=== PATIENT | male | born 1955 | race Caucasian/White ===

== ENCOUNTER 2023-12-10 10:54 | Inpatient (IN) | payer MEDICARE, SELFPAY ==
[2023-12-10] VITALS (14 sets, daily range): BP systolic 122–165; BP diastolic 69–83; PULSE 48–74; RESP 18–20; TEMP 36.3–36.9; O2SAT 93–99; BMI 28.6; BMI 29.8
--- NOTE | 2023-12-10 12:48 | ED_ITS ---
HPI - General Adult General Date Seen: 12/10/23 Chief complaint: Hypertension Stated complaint: Intermittent high BP Time Seen by Provider: 12/10/23 12:41 History of Present Illness HPI narrative: 68-year-old gentleman with a past medical history of hypertension, dyslipidemia, and dementia. He normally follows with Gio Ramirez at the [place] office for Bina Gallegos. He is normally on metoprolol and another medications for his blood pressure. He takes atorvastatin for cholesterol. He is on Aricept for dementia. He had an episode where he had a syncopal event at [facility] in mid September (October 11). Normal sinus rhythm [] EKG Obtained by EMS at at the time of the incident showed sinus bradycardia with a rate of 51. KS interval was prolonged at 2:12 a.m.. He had a first- degree AV block. He had nonspecific T-wave flattening in leads 2, AVF, and less so in the lateral leads. He had follow-up with his doctor. They decreased his metoprolol dose from 25 mg daily down to 12.5 mg daily. He had a 2 week outpatient heart monitor that she had no other arrhythmias or episodes of bradycardia. He in late October he had an extensive workup done at [facility] to evaluate his dementia. He is a candidate for a new treatment for dementia and will receiving that starting soon. He had low labs, PET-CT scan of his brain, lumbar puncture done on November 26 at [place]. His is able to show me some of those test results through his online ?my chart. Labs from 11/26: WBC 6.7, hemoglobin 14.7, platelet counts 209 PT 11.2, INR 1.0 Sodium 140, potassium 4.3, chloride 105, bicarb 20, BUN 13, creatinine 0.99, glucose 98, calcium 9.3, liver function tests were normal TSH normal at 2.2 EKG showed a sinus rhythm with a rate in the 50s. He has been taking all of his prescription medications. He has been eating and drinking normally. No other change in his appetite, food intake, or behavior. No recent illness. No recent cough or fever. No vomiting or diarrhea. He is not having any chest pain or trouble breathing. For the past couple of days he has been having ?spells? where he feels a very warm feeling through his torso and body, followed by feeling lightheaded and dizzy. His has noted that he has skin turns haney ashen pale during the spells. During a few the spells he felt like if he did not sit down he would pass out. He has not actually passed out or lost consciousness. He had at least 5 spells yesterday. Because of the frequency of these new spells, they came to the ER today. Related Data Home Medications Medication Instructions Recorded Confirmed atorvastatin 40 mg tablet 40 mg PO HS 12/10/23 12/10/23 donepezil 10 mg tablet (Aricept) 10 mg PO HS 12/10/23 12/10/23 escitalopram oxalate 20 mg tablet 20 mg PO DAILY 12/10/23 12/10/23 losartan 100 mg tablet (Cozaar) 100 mg PO DAILY 12/10/23 12/10/23 metoprolol succinate 25 mg 12.5 mg PO HS 12/10/23 12/10/23 tablet,extended release 24 hr Allergies Allergy/AdvReac Type Severity Reaction Status Date / Time No Known Drug Allergies Allergy Verified 12/10/23 11:03 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 Lives with Mechelle (would be medical decision maker if needed). Adult children and grandchildren locally. Requests full code status, would not want to be kept alive artificially for any length of time. Quit smoking approximately 20 years ago, 1-2 beers 5 nights per week. What is your current living situation?: I presently have a place to live Problems where you live: no known problems Problems where you live details: None In the past 12 months, utilities in danger of being shut off: no In past 12 months, lack of transportation kept you from medical appts, meetings, work, or getting things needed for daily living: no In the past 12 mos, have been you worried that your food would run out before you had money to buy more?: never true In the past 12 mos, the food you bought just didn't last and you didn't have money to buy more?: never true Highest level of school completed/degree received: Associate degree: occupational, technical, vocational program Smoking Status: Former smoker Do you use any of these nicotine containing products: None How often do you have a drink containing alcohol: 4 or more times a week Alcohol type: beer Alcohol type details: 1 beer 5 nights a week How many standard drinks containing alcohol do you have on a typical day: 1 or 2 How often do you have six or more drinks on one occasion: Less than monthly AUDIT-C Alcohol total score: 5 Non-prescribed substance use: denies use Caffeine: Yes How often does anyone, including family, friends and others, physically hurt you : never How often does anyone, including family, friends and others, insult or talk down to you: never How often does anyone, including family, friends and others, threaten you with harm: never How often does anyone, including family, friends and others, scream or curse at you: never service: No Exam Narrative: Exam Narrative: Constitutional: Appears well-developed and well-nourished. Alert. Conversant but relies on his for a lot of the history. Non toxic. HENT: Head: Atraumatic. Nose: Nose normal. Mouth/Throat: Oral mucosa is clear and moist. no trismus. Pharynx normal. Tonsils symmetric. No tonsillar enlargement, erythema, or exudate. Eyes: Conjunctivae normal. EOM normal. Pupils equal, round, and reactive to light. No scleral icterus. Neck: Normal range of motion. Neck supple. No tracheal deviation present. Cardiovascular: Normal rate, regular rhythm. No gallop. No friction rub. No murmur heard. Symmetric radial artery pulses During my evaluation he has 1 of the spells. He says he can feel it coming and started to feel warm. I scrambled to get him on the heart monitor. We did and he had a heart rate that appeared to be sinus bradycardia with a rate of about 42. He was symptomatic, feeling warm while lying in bed. The skin of his face did turn a bit ashen and haney. He did not lose consciousness. No chest pain. No trouble breathing. Within about 2 minutes the spell resolved and heart rate came up to the mid 50s, sinus bradycardia. Pulmonary/Chest: Effort normal. No stridor. No respiratory distress. No wheezes. No rales. No rhonchi . No tenderness. Abdominal: Soft. Bowel sounds normal. No distension. No mass. No tenderness. No rebound. No guarding. Musculoskeletal: RUE: Normal range of motion. No tenderness. No deformity LUE: Normal range of motion. No tenderness. No deformity RLE: Normal range of motion. No edema. No tenderness. No deformity LLE: Normal range of motion. No edema. No tenderness. No deformity Lymph: No cervical adenopathy. Neurological: Alert and oriented to person, place, and time. Normal strength. CN II-VII intact. No sensory deficit. GCS eye subscore is 4. GCS verbal subscore is 5. GCS motor subscore is 6. Normal coordination Skin: Skin is warm and dry. No rash noted. No pallor. Normal capillary refill. Psychiatric: Normal mood. Normal affect. As a wry sense of humor. Const: Vital Signs, click to edit/add: Vital Signs - 24 hr 12/10/23 10:57 12/10/23 13:52 12/10/23 14:00 Temperature 97.3 F L Pulse Rate 52 L 53 L Pulse Rate [Pulse Oximeter] 57 L Respiratory Rate 18 Blood Pressure Blood Pressure [Ri [facility] Upper [place]] 155/78 H Pulse Oximetry 99 96 [facility] 12/10/23 14:01 12/10/23 14:02 12/10/23 14:31 Temperature Pulse Rate 48 L 49 L 51 L Pulse Rate [Pulse Oximeter] Respiratory Rate Blood Pressure 152/80 H 147/80 H Blood Pressure [Ri t Upper Arm] Pulse Oximetry 96 96 95 Oxygen Delivery [facility] 12/10/23 14:32 12/10/23 15:00 12/10/23 15:00 Temperature Pulse Rate 51 L 55 L 55 L Pulse Rate [Pulse Oximeter] Respiratory Rate Blood Pressure Blood Pressure [Ri [facility] Upper [place]] Pulse Oximetry 95 95 Oxygen Delivery [facility] 12/10/23 15:02 Temperature Pulse Rate 54 L Pulse Rate [Pulse Oximeter] Respiratory Rate Blood Pressure 155/78 H Blood Pressure [Ri ght Upper Arm] Pulse Oximetry 93 Oxygen Delivery Me thod Course Vital Signs Vital signs: Initial Vital Signs Temperature 97.3 F L 12/10/23 10:57 Temperature Source Temporal Artery Scan 12/10/23 10:57 Pulse Rate 57 L 12/10/23 10:57 Respiratory Rate 18 12/10/23 10:57 Blood Pressure 155/78 H 12/10/23 10:57 Blood Pressure Mean 103 12/10/23 10:57 Blood Pressure Position Sitting 12/10/23 10:57 Pulse Oximetry 99 12/10/23 10:57 Oxygen Delivery Method Room Air 12/10/23 10:57 Vital Signs Temperature 97.3 F L 12/10/23 10:57 Pulse Rate 57 L 12/10/23 10:57 Respiratory Rate 18 12/10/23 10:57 Blood Pressure 155/78 H 12/10/23 10:57 Pulse Oximetry 99 12/10/23 10:57 Oxygen Delivery Method Room Air 12/10/23 10:57 Temperature 97.6 F 12/10/23 15:23 Pulse Rate 73 12/10/23 18:30 Respiratory Rate 20 12/10/23 15:23 Blood Pressure 149/77 H 12/10/23 18:30 Pulse Oximetry 98 12/10/23 15:23 Oxygen Delivery Method Room Air 12/10/23 15:23 Medical Decision Making MDM Narrative Medical decision making narrative: This patient presents for evaluation of a multiple near syncopal events over the past couple of days. A broad differential was considered. No murmurs . Initial ECG shows marked sinus bradycardia with a rate down in the 40s when he is actively having an event and subsequently sinus bradycardia with a rate in the 50s when he is asymptomatic. No other abnormality such as high- degree AV block, WPW, prolonged QT, Brugada syndrome, and no ischemia. Troponin negative. No symptoms/findings concerning for cardiac ischemia or ACS . He has already had outpatient workup through [facility] that included normal thyroid function about 2 weeks ago.. No headache or other neurologic symptoms to suggest subarachnoid , stroke . No seizure-like activity or postictal phase. He is on a beta-fiona for blood pressure control. It is possible that he is overly beta blocked and this is causing his episodes of bradycardia. His primary care did decrease his dose by half about a month ago. My recommendation would be to stop the beta-fiona altogether and monitor in the hospital to see if these events recur or stop. If they are ongoing may require transfer to a Cardiology capable hospital to consider pacemaker for his symptomatic bradycardic events and possible sick sinus syndrome. At this point it seems reasonable to admit him here at [facility] pending discontinuation of his beta fiona. Lab Data Labs: Lab Results 12/10/23 Range/Units 13:40 WBC 9.28 (4.50-11.00) K/uL RBC 4.45 (4.30-5.90) m/uL Hgb 13.8 (13.5-17.5) gm/dL Hct 41.5 (37.0-53.0) % MCV 93 (80-100) fL MCH 31 (26-34) pg MCHC 33 (32-36) gm/dL RDW Coeff of Mikayla 12.3 (11.5-15.5) % Plt Count 199 (140-440) K/uL Neut % (Auto) 76.8 H (42.0-72.0) % Lymph % (Auto) 14.8 L (20-44) % Yancey % (Auto) 7.7 (0.0-11.0) % Eos % (Auto) 0.3 (0.0-7.0) % Baso % (Auto) 0.3 (0.0-3.0) % Neut # (Auto) 7.10 H (1.7-7.0) K/uL Lymph # (Auto) 1.40 (0.90-2.90) K/uL Yancey # (Auto) 0.70 (0.00-0.90) K/UL Eos # (Auto) 0.03 (0.00-0.50) K/uL Baso # (Auto) 0.03 (0.00-0.30) K/uL Abs Immat Gran (auto) 0.01 (0.00-0.30) K/uL Imm/Tot Granulo (auto) 0.1 % Sodium 139 (135-149) mmol/L Potassium 3.9 (3.6-5.1) mmol/L Chloride 107 (96-114) mmol/L Carbon Dioxide 26 (20-32) mmol/L Anion Gap 6 L (7-15) mEq/L BUN 14 (7-30) mg/dL Creatinine 0.7 (0.5-1.5) mg/dL Estimated Creat Clear 75.30 Estimated GFR 100 ml/min Glucose 104 (60-115) mg/dL Calcium 9.1 (8.4-10.6) mg/dL Troponin I 0.01 (0.01-0.04) ng/mL ECG Data Attestation: I personally reviewed and interpreted this ECG as follows: Interpretation: Sinus bradycardia. Rate 50 KS [id number] AV block QRS axis normal axis. No pathologic Q-waves. ST segment/T wave: No ST segment elevation or depression. Previous T-wave f lattening that was noted in lead 3 on his EKG from September is now resolved. QTc: 428 Discharge Plan Discharge Clinical Impression: Bradycardia, sinus, AV bloc first degree, Near syncope Patient Disposition: Admitted As Observation
[2023-12-10 13:51] LABS: Basophils Absolute Auto 0.03 K/uL (0.00-0.30); Basophils Percent Auto 0.3 % (0.0-3.0); Eosinophils Absolute Auto 0.03 K/uL (0.00-0.50); Eosinophils Percent Auto 0.3 % (0.0-7.0); Hematocrit 41.5 % (37.0-53.0); Hemoglobin* 13.8 gm/dL (13.5-17.5); Immature Granulocytes Abs Auto 0.01 K/uL (0.00-0.30); Immature Granulocytes Pct Auto 0.1 %; Lymphocytes Percent Auto 14.8 % (20-44); Mean Corpuscular HGB Conc 33 gm/dL (32-36); Mean Corpuscular Hemoglobin 31 pg (26-34); Mean Corpuscular Volume 93 fL (80-100); Monocytes Percent Auto 7.7 % (0.0-11.0); Neutrophils Percent Auto 76.8 % (42.0-72.0); Platelet Count* 199 K/uL (140-440); RDW Coefficient of Variation % 12.3 % (11.5-15.5); Red Blood Count 4.45 m/uL (4.30-5.90); White Blood Count* 9.28 K/uL (4.50-11.00)
[2023-12-10 14:03] LABS: Slide Review Reflex No
--- OUTSIDE RECORDS SUMMARY | 2023-12-10 14:05 | XMS_ITS | Encounter Summary ---
Author Name Unknown Organization [facility] Address [address] [place] [id number] Care Team Providers Care General Internal Medicine Doctor Name Role Phone Jamarcus Cordero INDUSTRIAL HYGIENIST Primary Care Provider Encounter Details Date Type Department Care Team (Latest Contact Info) Description 05/15/2023 Travel Social History Tobacco Use Types Packs/Day Years Used Date Smoking Tobacco: Former Alcohol Use Standard Drinks/Week Comments Yes 0 (1 standard drink = 0.6 oz pur e alcohol) rare Sex and Gender Information Value Date Recorded Sex Assigned at Not on file Gender Identity Not on file Sexual Orientation Not on file COVID-19 Exposure Response Date Recorded In the last 10 days, have yo u been in contact with someone who was confirmed or suspected to have Coronavirus/COVID-19? No / Unsure 05/15/2023 3:14 PM CDT documented as of this encounter Plan of Treatment Not on file documented as of this encounter Visit Diagnoses Not on filedocumented in this encounter Care Teams General Internal Medicine Doctor Relationship Specialty [place] [id number] [address] [place] [id number] PCP - General Nurse Practitioner 03/31/22 documented as of this encounter
--- OUTSIDE RECORDS SUMMARY | 2023-12-10 14:05 | XMS_ITS | Encounter Summary ---
Author Name Unknown Organization [facility] Address [address] [place] [id number] Care Team Providers Care Auto Striper Name Role Phone Jamarcus Cordero NP Primary Care Provider [phone] Reason for Visit * Reason Comments Dizziness Encounter Details Date Type Department Care Team (Late st Contact Info) Description 05/15/2023 4:14 PM CDT - 05/15/2023 7:41 PM CDT Emergency [facility] Emergency Dept [address] [place] [address] Venu Mitchell MD [facility] [address] [place] [address] Transient hypotension Discharge Disposition: Home or Self Care Social History Tobacco Use Types Packs/Day Years [...] PM CDT documented as of this encounter Last Filed Vital Signs Vital Sign Reading Time Taken Comments Blood Pressure 121/84 05/15/2023 6:55 PM CDT Pulse 65 05/15/2023 6:55 PM CDT Temperature 37.1 ??C (98.8 ??F) 05/15/2023 3:19 PM CD T Respiratory Rate 16 05/15/2023 3:19 PM CDT Oxygen Saturation 97% 05/15/2023 6:56 PM CDT Inhaled Oxygen Concentration - - Weight 99.8 kg (220 lb) 05/15/2023 3:19 PM CDT Height 180.3 cm (5' 11) 05/15/2023 3:19 PM CDT Body Mass Index 30.68 05/15/2023 3:19 PM CDT documented in this encounter Discharge Instructions * Discharge Instructions* Venu Mitchell MD - 05/15/2023 7:33 PM CDT We noted a transient drop in your blood pressure. We are not sure if this is related to your new medication Aricept or your lack of ability to compensate for drops of blood pressure because of metoprolol. Please decrease metoprolol to 12.5. If you are dizzy or lightheaded please sit down or lie down. Please follow-up with your regular doctor to reassess blood pressure and her medications. Thanks your patience today. * Attachments The following attachments cannot be sent through Care Everywhere. * Low Blood Pressure (Hypotension), Discharge Instructions for ([place]ots[place]an) documented in this encounter Medications at Time of Discharge Medication Sig Dispensed Refills Start Date End Date Atorvastatin Calcium (LIPITOR PO) 0 Citalopram Hydrobromide (CELEXA PO) 0 metoprolol succinate ER (TOPROL XL) 25 MG 24 hr tablet Take 0.5 tablets (12.5 mg) by mouth daily 30 tablet 0 05/15/2023 Omeprazole (PRILOSEC PO) 0 documented as of this encounter ED Notes * Anshul Moe MD - 05/15/2023 4:16 PM CDT Tele-PIT/Intake Evaluation Video-Visit Details Type of service: Video Visit Video Start Time (time video started): 4:16 PM Video End Time (time video stopped): 4:22 PM Originating Location (pt. Location): [facility] Distant Location (provider location): [facility] Mode of Communication: Video Conference via [employer] Patient verbally consented to [employer] televisit. History: Patient presents with lightheadedness and near syncope while working out in the yard. Denies chest pain or shortness of breath. States he checked his blood pressure at home and it was in the 80s. No recent changes to his blood pressure medications. Exam: General: Alert, interactive Cardiovascular: Well perfused Lungs: No respiratory distress, no accessory muscle use Neuro: Moving all 4 extremities Skin: Warm, dry Psych: Normal affect Patient Vitals for the past 24 hrs: BP Temp Temp src Pulse Resp SpO2 Height Weight 05/15/23 1519 126/70 98.8 ??F (37.1 ??C) Temporal 78 16 97 % 1.803 m (5' 11) 99.8 kg (220 lb) Appropriate interventions for symptom management were initiated if applicable. Appropriate diagnostic tests were initiated if indicated. Important information for subsequent clinician: Orthostatic vital signs, IV, labs, EKG all ordered. I briefly evaluated the patient and developed an initial plan of care. I discussed this plan and explained that this brief interaction does not constitute a full evaluation. Patient/family understands that they should wait to be fully evaluated and discuss any test results with another clinician prior to leaving the hospital. Anshul Moe MD 05/15/23 1622 * Mindy Sher RN - 05/15/2023 3:17 PM CDT Pt was doing landscaping outside and whenever he stood up he became lightheaded/dizzy. Pt went inside and took BP, which was 80/50. Pt reports he drank some water but BP wouldn't go up. Here, pt denies feeling lightheaded/dizzy but does note some mild SOB. Denies CP. ABCs intact. * Venu Mitchell MD - 05/15/2023 3:14 PM CDT History Chief Complaint: Dizziness HPI Zackary Mcgowan is a 67 year old male with history of hypertension who presents to the ED for an episode of near syncope. The patient reports he became lightheaded and near syncope while working out in the yard this afternoon. He states he checked his blood pressure at home and it was 88/50. He went inside, sat down, and drank a few glasses of water with improvement. The patient denies loss of consciousness, falls, chest pain, headache, abdominal pain, diaphoresis. He states he was recently started on Aricept and has not changes to his Metoprolol. Independent Historian: None - Patient Only Review of External Notes: Medications: Aspirin 81 mg Toprol Cozaar Lipitor Celexa Aricept Metoprolol Lexapro Past Medical History: Depressive disorder GERD Hypertension ALVINA Tobacco Use Obesity Severe EMIL Hyperlipidemia Past Surgical History: Tonsillectomy Sinus Surgery Physical Exam Patient Vitals for the past 24 hrs: BP Temp Temp src Pulse Resp SpO2 Height Weight 05/15/23 1856 -- -- -- -- -- 97 % -- -- 05/15/23 1855 121/84 -- -- 65 -- 98 % -- -- 05/15/23 1854 -- -- -- -- -- 97 % -- -- 05/15/23 1853 135/83 -- -- 62 -- 97 % -- -- 05/15/23 1852 -- -- -- -- -- 99 % -- -- 05/15/23 1851 137/80 -- -- 57 -- 95 % -- -- 05/15/23 1756 (!) 142/84 -- -- 57 -- -- -- -- 05/15/23 1519 126/70 98.8 ??F (37.1 ??C) Temporal 78 16 97 % 1.803 m (5' 11) 99.8 kg (220 lb) Physical Exam Vitals reviewed. HENT: Head: Normocephalic. Cardiovascular: Rate and Rhythm: Normal rate and regular rhythm. Pulmonary: Effort: Pulmonary effort is normal. Breath sounds: Normal breath sounds. Abdominal: General: Abdomen is flat. Bowel sounds are normal. Skin: General: Skin is warm. Capillary Refill: Capillary refill takes less than 2 seconds. Neurological: General: No focal deficit present. Mental Status: He is alert and oriented to person, place, and time. Emergency Department Course ECG ECG taken at 1618, ECG read at 1828 Sinus rhythm with premature atrial complexes Normal ECG Rate 69 bpm. MS interval 200 ms. QRS duration 106 ms. QT/QTc 436/467 ms. P-R-T axes 69/13/53. Laboratory: Labs Ordered and Resulted from Time of ED Arrival to Time of ED Departure D DIMER QUANTITATIVE - Normal Result Value D-Dimer Quantitative 0.31 BASIC METABOLIC PANEL - Normal Sodium 139 Potassium 4.1 Chloride 105 Carbon Dioxide (CO2) 24 Anion Gap 10 Urea Nitrogen 17.1 Creatinine 1.00 Calcium 9.2 Glucose 75 GFR Estimate 82 TROPONIN T, HIGH SENSITIVITY - Normal Troponin T, High Sensitivity 17 CBC WITH PLATELETS AND DIFFERENTIAL WBC Count 8.6 RBC Count 4.44 Hemoglobin 14.2 Hematocrit 42.1 MCV 95 MCH 32.0 MCHC 33.7 RDW 12.8 Platelet Count 218 % Neutrophils 62 % Lymphocytes 24 % Monocytes 10 % Eosinophils 2 % Basophils 1 % Immature Granulocytes 1 NRBCs per 100 WBC 0 Absolute Neutrophils 5.4 Absolute Lymphocytes 2.1 Absolute Monocytes 0.9 Absolute Eosinophils 0.1 Absolute Basophils 0.1 Absolute Immature Granulocytes 0.0 Absolute NRBCs 0.0 Emergency Department Course & Assessments: Assessments: 1901 Initial Examination Independent Interpretation (X-rays, CTs, rhythm strip): None Consultations/Discussion of Management or Tests: None Social Determinants of Health affecting care: None Disposition: The patient was discharged to home. Impression & Plan [facility] Diagnoses: None Medical Decision Making: Zackary Mcgowan is a 67 year old male patient presents with a near syncopal episode after a transient drop in blood pressure. Recently prescribed Aricept. Also on metoprolol. Patient is well-appearing lab work is unremarkable EKG unremarkable without concerns for QT or QRS prolongation anemia or dehydration orthostatics are normal after IV fluids. Patient was encouraged to titrate down his antihypertensives. Could be a side effect of the newly started Aricept recommend follow-up with primary care for reassessment. Discharged home in stable condition. Diagnosis: ICD-10-CM 1. Transient hypotension I95.9 Discharge Medications: New Prescriptions METOPROLOL SUCCINATE ER (TOPROL XL) 25 MG 24 HR TABLET Take 0.5 tablets (12.5 mg) by mouth daily Scribe Disclosure: Vlad Nguyen, am serving as a scribe at 6:29 PM on 05/15/2023 to document services personally performed by Venu Mitchell MD based on my observations and the provider's statements to me. 05/15/2023 Venu Mitchell MD Goodman, Brian Samuel, MD 05/20/23 1523 documented in this encounter Plan of Treatment Not on file documented as of this encounter Procedures Procedure Name Priority Date/Time Associated Diagnosis Comments EXTRA TUBE STAT 05/15/2023 4:25 PM CDT EXTRA RED TOP TUBE STAT 05/15/2023 4: 25 PM CDT CBC WITH PLATELETS AND DIFFERENTIAL STAT 05/15/2023 4:25 PM CDT TROPONIN T, HIGH SENSITIVITY STAT 05/15/2023 4:25 PM CDT CBC WITH PLATELETS & DIFFERENTIAL STAT 05/15/2023 4:25 PM CDT D DIMER QUANTITATIVE STAT 05/15/2023 4:25 PM CDT BASIC METABOLIC PANEL STAT 05/15/2023 4:25 PM CDT EKG 12-LEAD, TRACING ONLY STAT 05/15/2023 4:18 PM CDT documented in this encounter Results * Extra Red Top Tube (05/15/2023 4:25 PM CDT) Hold Specimen [facility] 05/15/2023 5:32 PM CDT LABORATORY Blood BLOOD SPECIMEN / Unknown Venipuncture / Unknown 05/15/2023 4:25 PM CDT 05/15/2023 4:31 PM CDT Venu Mitchell MD LAB - BLOOD KATHIE GARG [facility] Acute Care Lab [address] Lab (1st floor, no room number) [place] [address], [facility] [phone] * CBC with platelets and differential (05/15/2023 4:25 PM CDT) WBC Count 8.6 4.0 - 11.0 10e3/uL 05/15/2023 4:34 PM CDT [facility] RBC Count 4.44 4.40 - 5.90 10e6/uL 05/15/2023 4:34 PM CDT [facility] Hemoglobin 14.2 13.3 - 17.7 g/dL 05/15/2023 4:34 PM CDT [facility] Hematocrit 42.1 40.0 - 53.0 % 05/15/2023 4:34 PM CDT [facility] MCV 95 78 - 100 fL 05/15/2023 4:34 PM CDT [facility] MCH 32.0 26.5 - 33.0 pg 05/15/2023 4:34 PM CDT [facility] MCHC 33.7 31.5 - 36.5 g/dL 05/15/2023 4:34 PM CDT [facility] RDW 12.8 10.0 - 15.0 % 05/15/2023 4:34 PM CDT [facility] Platelet Count 218 150 - 450 10e3/uL 05/15/2023 4:34 PM CDT [facility] % Neutrophils 62 % 05/15/2023 4:34 PM CDT [facility] % Lymphocytes 24 % 05/15/2023 4:34 PM CDT [facility] % Monocytes 10 % 05/15/2023 4:34 PM CDT [facility] % Eosinophils 2 % 05/15/2023 4:34 PM CDT [facility] % Basophils 1 % 05/15/2023 4:34 PM CDT [facility] % Immature Granulocytes 1 % 05/15/2023 4:34 PM CDT [facility] NRBCs per 100 WBC 0 <1 /100 023 4:34 PM CDT [facility] Absolute Neutrophils 5.4 1.6 - 8.3 10e3/uL 05/15/2023 4:34 PM CDT [facility] Absolute Lymphocytes 2.1 0.8 - 5.3 10e3/uL 05/15/2023 4:34 PM CDT [facility] Absolute Monocytes 0.9 0.0 - 1.3 10e3/uL 05/15/2023 4:34 PM CDT [facility] Absolute Eosinophils 0.1 0.0 - 0.7 10e3/uL 05/15/2023 4:34 PM CDT [facility] Absolute Basophils 0.1 0.0 - 0.2 10e3/uL 05/15/2023 4:34 PM CDT [facility] Absolute Immature Granulocytes 0.0 <=0.4 10e3/uL 05/15/2023 4:34 PM CDT [facility] Absolute NRBCs 0.0 10e3/uL 05/15/2023 4:34 PM CDT [facility] Blood BLOOD SPECIMEN / Unknown Venipuncture / Unknown 05/15/2023 4:25 PM CDT 05/15/2023 4:31 PM CDT Anshul Moe MD LAB - BLOOD OR DERABLES LABORATORY [facility] Acute Care Lab [address] [facility] Lab (1st floor, no room number) [place] [address], [facility] [phone] * Troponin T, High Sensitivity (05/15/2023 4:25 PM CDT) [facility] Troponin T, High Sensitivity 17 <=22 ng/L 05/15/2023 4:52 PM CDT [facility] Comment: Either a High Sensitivity Troponin T baseline (0 hours) value = 100 ng/L, or an increase in High Sensitivity Troponin T = 7 ng/L at 2 hours compared to 0 hours (2-0 hours), suggests myocardial injury, and urgent clinical attention is required. ?? If the 2-0 hours increase is <7 ng/L, a High Sensitivity Troponin T result above gender-specific reference ranges warrants further evaluation. Recommendations for further evaluation include correlation with clinical decision-making tool (e.g., HEART), a 3rd High Sensitivity Troponin T test 2 hours after the 2nd (a 20% change from baseline would represent concern), admission for observation, close PCC/cardiology follow-up, or urgent outpatient provocative testing. Blood BLOOD SPECIMEN / Unknown Venipuncture / Unknown 05/15/2023 4:25 PM CDT 05/15/2023 4:31 PM CDT Anshul Moe MD LAB - BLOOD OR DERABLES LABORATORY [facility] Acute Care Lab [address] Lab (1st floor, no room number) [place] [address], [facility] [phone] * Basic metabolic panel (05/15/2023 4:25 PM CDT) [facility] Sodium 139 136 - 145 mmol/L 05/15/2023 4:52 PM CDT LABORATORY Potassium 4.1 3.4 - 5.3 mmol/L 05/15/2023 4:52 PM CDT LABORATORY Chloride 105 98 - 107 mmol/L 05/15/2023 4:52 PM CDT LABORATORY Carbon Dioxide (CO2) 24 22 - 29 mmol/L 05/15/2023 4:52 PM CDT LABORATORY Anion Gap 10 7 - 15 mmol/L 05/15/2023 4:52 PM CDT LABORATORY Urea Nitrogen 17.1 8.0 - 23.0 mg/dL 05/15/2023 4:52 PM CDT LABORATORY Creatinine 1.00 0.67 - 1.17 mg/dL 05/15/2023 4:52 PM CDT LABORATORY Calcium 9.2 8.8 - 10.2 mg/dL 05/15/2023 4:52 PM CDT LABORATORY Glucose 75 70 - 99 mg/dL 05/15/2023 4:52 PM CDT LABORATORY GFR Estimate 82 >60 mL/min/1.7 3m2 05/15/2023 4:52 PM CDT LABORATORY Blood BLOOD SPECIMEN / Unknown Venipuncture / Unknown 05/15/2023 4:25 PM CDT 05/15/2023 4:31 PM CDT Anshul Moe MD LAB - BLOOD OR DERABLES LABORATORY [facility] Acute Care Lab [address] Lab (1st floor, no room number) [place] [address] [phone] * D dimer quantitative (05/15/2023 4:25 PM CDT) D-Dimer Quantitative 0.31 0.00 - 0.50 ug/mL FEU 05/15/2023 4:46 PM CDT [facility] Blood BLOOD SPECIMEN / Unknown Venipuncture / Unknown 05/15/2023 4:25 PM CDT 05/15/2023 4:30 PM CDT Narrative [facility] - 05/15/2023 4:46 PM CDT This D-dimer assay is intended for use in conjunction with a clinical pretest probability assessment model to exclude pulmonary embolism (PE) and deep venous thrombosis (DVT) in outpatients suspected of PE or DVT. The cut-off value is 0.50 ug/mL FEU. Anshul Moe MD LAB - BLOOD OR DERABLES [facility] Acute Care Lab [address] Lab (1st floor, no room number) [place] [address], [facility] [phone] * EKG 12-lead, tracing only (05/15/2023 4:18 PM CDT) Pathologist [facility] Emergency Department Systolic Blood Pressure mmHg RADIOLOGY RESULTS Diastolic Blood Pressure mmHg RADIOLOGY RESULTS Ventricular Rate 69 BPM RAD IOLOGY RESULTS Atrial Rate 69 BPM RADIOLOG Y RESULTS MS Interval 200 ms RADIOLOG Y RESULTS QRS Duration 106 ms RADIOLO GY RESULTS QT 436 ms RADIOLOGY RESULTS QTc 467 ms RADIOLOGY RESULTS P [place] 69 degrees RADIOLOGY RESULTS R AXIS 13 degrees RADIOLOGY RESULTS T [place] 53 degrees RADIOLOGY RESULTS Interpretation ECG Sinus rhythm with Premature atrial complexes Otherwise normal ECG When compared with ECG of 04-APR-2022 11:16, Premature atrial complexes are now Present Confirmed by - EMERGENCY ROOM, PHYSICIAN ([id number]), script editor NIKI ALTMAN ([id number]) on 05/16/2023 6:37:42 AM RADIOLOGY RESULTS 05/15/2023 4:18 PM CDT 05/16/2023 6:37 AM CDT Anshul Moe MD ECG ORDERABLES RADIOLOGY RESULTS documented in this encounter Visit Diagnoses Diagnosis Transient hypotension Nonspecific low blood pressure reading documented in this encounter Care Teams Auto Striper Relationship Specialty Start [place] [address] [place] [address] PCP - General Nurse Practitioner 03/31/22 documented as of this encounter
--- OUTSIDE RECORDS SUMMARY | 2023-12-10 14:05 | XMS_ITS | Referral Summary ---
Author Name Unknown Organization [facility] Address [address] [place] [id number] Care Team Providers Care Food Sanitarian Name Role Phone Elsewhere, Pcp Primary Care Provider Unavailabl e Source Comments Patient records contain information from all sites at [facility]. For routine questions regarding patient records, call [phone] during business hours, M-F 8:00 AM - 5:00 PM Central Time. Record requests for emergency care only can be directed to [phone] at any time.[facility] Encounters Date Type Department Care Team Description 11/30/2023 Orders Only Department of Neurology in [place], [place] [address] [place] [phone] Kiel Gomes M.D., Ph.D. Unspecified Dementia Unspecified Severity Without Behavioral Disturbance 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) (Primary Dx) 11/30/2023 11:00 AM BONDACTOR MACHINE OPERATOR Education Department of Neurology in [place], [place] [address] [place] [phone] Anselmo Barrios M.D., Ph.D. Alice Camargo R.N. Unspecified Dementia Unspecified Severity Without Behavioral Disturbance 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) 11/29/2023 3:30 PM BONDACTOR MACHINE OPERATOR Clinical Support Department of Neurology in [place], [place] [address] [place] [phone] Anselmo Barrios M.D., Ph.D. Ida Calle L.I.C.S.W., M.S.W. Unspecified Dementia Unspecified Severity Without Behavioral Disturbance 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) 11/29/2023 1:00 PM BONDACTOR MACHINE OPERATOR Office Visit Department of Neurology in [place], [place] [address] [place] [phone] Anselmo Barrios M.D., Ph.D. Impairment Cognitive Mild (Primary Dx); Unspecified Dementia Unspecified Severity Without Behavioral Disturbance 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); Alzheimer's Disease (HCC) 11/27/2023 8:30 AM BONDACTOR MACHINE OPERATOR Procedure visit Department of Neurology in [place], [place] [address] [place] [phone] Anselmo Barrios M.D., Ph.D. Tana Stanford R.N. Unspecified Dementia Unspecified Severity Without Behavioral Disturbance 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) 11/27/2023 12:57 PM BONDACTOR MACHINE OPERATOR - 11/27/2023 11:59 PM BONDACTOR MACHINE OPERATOR [place] [address] [place] [phone] Anselmo Barrios M.D., Ph.D. Unspecified Dementia Unspecified Severity Without Behavioral Disturbance 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) Discharge Disposition: Home or Self Care 11/26/2023 Documentation Department of Neurology in [address] [phone] Anselmo Barrios M.D., Ph.D. 11/26/2023 Clinical Communication Department of Neurology in [address] [phone] Anselmo Barrios M.D., Ph.D. 11/26/2023 12:30 PM BONDACTOR MACHINE OPERATOR Lab Department of Laboratory Medicine and Pathology, [place], [place] [address] [place] [phone] Anselmo Barrios M.D., Ph.D. Unspecified Dementia Unspecified Severity Without Behavioral Disturbance 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) 11/26/2023 6:18 AM BONDACTOR MACHINE OPERATOR - 11/26/2023 11:59 PM BONDACTOR MACHINE OPERATOR [facility] [place] [place] [address] [place] [phone] Anselmo Barrios M.D., Ph.D. Unspecified Dementia Unspecified Severity Without Behavioral Disturbance 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) Discharge Disposition: Home or Self Care 11/26/2023 3:00 PM BONDACTOR MACHINE OPERATOR Comprehensive Visit Department of Neurology in [address] [phone] Anselmo Barrios M.D., Ph.D. Unspecified Dementia Unspecified Severity Without Behavioral Disturbance 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) (Primary Dx) 11/22/2023 8:30 AM BONDACTOR MACHINE OPERATOR Clinical Communication Virtual Review in [address] [phone] Pre-visit Intake 10/10/2023 Clinical Communication Department of Neurology in [address] [phone] Anselmo Barrios M.D., Ph.D. 10/10/2023 Clinical Communication Department of Neurology in [address] [phone] Provider, Unknown 10/09/2023 Clinical Communication Department of Neurology in [address] [phone] Provider, Unknown from Last 3 Months Allergies No known active allergies Medications Medication Sig Dispensed Refills Start Date End Date Status aspirin [address] tablet Take 81 mg by mouth daily. 0 04/24/2016 Active atorvastatin (LIPITOR) 40 mg tablet Take 1 tablet by mouth daily. 0 10/26/2023 Active donepeziL (ARICEPT) 10 mg tablet Take 1 Tablet (10 mg) by mouth daily at bedtime. 0 05/03/2023 05/02/2024 Active escitalopram (LEXAPRO) 20 mg tablet Take 1 Tablet (20 mg) by mouth daily. 0 05/03/2023 05/02/2024 Active fluticasone propionate (FLONASE) 50 mcg/actuation nasal spray Administer 2 sprays into each nostril daily as needed. 0 07/31/2023 Active losartan (COZAAR) 100 mg tablet Take 1 tablet by mouth daily. 0 10/09/2023 Active metoprolol succinate (TOPROL-XL) 25 mg 24 hr tablet Take 0.5 tablets by mouth daily. 0 10/26/2023 Active MAGNESIUM ORAL Take 200 mg by mouth daily. 0 Active ascorbic acid (VITAMIN C ORAL) Take 1,000 mg by mouth daily. 0 Active docosahexaenoic acid/epa (FISH OIL ORAL) Take 1,000 mg by mouth daily. 0 Active ASHWAGANDHA ROOT EXTRACT ORAL 1 gummy daily 0 Active ZINC ORAL Take 50 mg by mouth daily. 0 Active co-enzyme Q-10 (CO Q-10) 100 mg capsule Take 100 mg by mouth daily. 0 Active TURMERIC ORAL Take 1,000 mg by mouth daily. 0 Active cholecalciferol, vitamin D3, (cholecalciferol) 25 mcg (1,000 Unit) tablet Take 25 mcg by mouth daily. 0 Active melatonin 5 mg tablet Take 5 mg by mouth at bedtime. 0 Active Hospital, Clinic, or Other Facility Administered Medication Ordered Dose Route Frequency Start Date End Date Status lidocaine (PF) 10 mg/mL (1 %) injection 5 mL (XYLOCAINE) 5 mL Ifil Once 11/27/2023 11/27/2023 Ended Active Problems Problem Noted Date Diagnosed Date Unspecified Dementia Unspeci fied Severity Without Behavioral Disturbance Psychotic disturbance Mood Disturbance And Anxiety 11/29/2023 Social History Tobacco Use Types Packs/Day Years Used Date Smoking Tobacco: Former Cigarettes 0 11/16/1977 - 05/31/2002 Passive Smoke Exposure: Past Smokeless Tobacco: Never Comments:I have not smoked f or 22 years Alcohol Use Standard Drinks/Week Comments Yes 10 (1 standard drink = 0.6 oz pu re alcohol) [facility] Utilities Answer Date Recorded In the past 12 months has [employer], [employer], or water [employer] threatened to shut off services in your home? No 11/22/2023 Exercise Vital Sign Answer Date Recorde d On average, how many days pe r week do you engage in moderate to strenuous exercise (like a brisk walk)? 0 days 11/21/2023 On average, how many minutes do you engage in exercise at this level? 0 min 11/21/2023 Hunger Vital Sign Answer Date Recorded Within the past 12 months, y ou worried that your food would run out before you got the money to buy more. Never true 11/22/19 Within the past 12 months, t he food you bought just didn't last and you didn't have money to get more. Never true 11/22/2023 PRAPARE - Transportation Answer Date Re corded In the past 12 months, has l ack of transportation kept you from medical appointments or from getting medications? No 10/30 In the past 12 months, has l ack of transportation kept you from meetings, work, or from getting things needed for daily living? No 11/22/2023 Nutrition Answer Date Recorded Nutrition: EVOO Fat Source Unknown 11/21 On average, how many serving s of fruits and vegetables do you eat per day (serving size is equal to 1 cup or approximately the size of a tennis ball)? 0-2 11/21/2023 Dental Answer Date Recorded Dental: Regular Dentist Yes 11/21/19 Employment Answer Date Recorded Employment status Retired 11/21/2023 Housing Stability Answer Date Recorded What is your living situation today? I have a [facility] place to live 11/22/2023 Sex and Gender Information Value Date Recorded Sex Assigned at Male 11/21/2023 10:59 AM BONDACTOR MACHINE OPERATOR Gender Identity Male 11/21/2023 10:59 AM BONDACTOR MACHINE OPERATOR Sexual Orientation Straight 11/21/2023 10 :59 AM BONDACTOR MACHINE OPERATOR Last Filed Vital Signs Vital Sign Reading Time Taken Comments Blood Pressure 97/60 11/26/2023 3:02 PM BONDACTOR MACHINE OPERATOR Pulse 62 11/26/2023 3:02 PM BONDACTOR MACHINE OPERATOR Temperature - - Respiratory Rate - - Oxygen Saturation - - Inhaled Oxygen Concentration - - Weight 95.6 kg (210 lb 12.2 oz) 11/26/2023 3:02 PM BONDACTOR MACHINE OPERATOR Height 182.5 cm (5' 11.85) 11/26/2023 3:02 PM C Body Mass Index 28.7 11/26/2023 3:02 PM BONDACTOR MACHINE OPERATOR Plan of Treatment Not on file Procedures Procedure Name Priority Date/Time Associated Diagnosis Comments PET CT BRAIN METABOLIC EVALUATION RAD - Routine (most inpatients and all outpatients) 11/27/2023 2:45 PM BONDACTOR MACHINE OPERATOR Unspecified Dementia Unspecified Severity Without Behavioral Disturbance 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) CELL COUNT AND DIFFERENTIAL, CSF Routine 11/27/2023 9:23 AM BONDACTOR MACHINE OPERATOR Unspecified Dementia Unspecified Severity Without Behavioral Disturbance 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) PROTEIN, TOTAL, CSF Routine 11/27/2023 9 :23 AM BONDACTOR MACHINE OPERATOR Unspecified Dementia Unspecified Severity Without Behavioral Disturbance 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) GLUCOSE, CSF Routine 11/27/2023 9:23 AM BONDACTOR MACHINE OPERATOR Unspecified Dementia Unspecified Severity Without Behavioral Disturbance 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) ALZHEIMER'S DISEASE EVALUATION, CSF Routine 11/27/2023 9:23 AM BONDACTOR MACHINE OPERATOR Unspecified Dementia Unspecified Severity Without Behavioral Disturbance 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) KAPPA FREE LIGHT CHAIN, CSF Routine 11/27/2023 9:23 AM BONDACTOR MACHINE OPERATOR Unspecified Dementia Unspecified Severity Without Behavioral Disturbance 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) AZ PUNCTURE SPINAL LUMBAR DX Routine 11/27/2023 8:30 AM BONDACTOR MACHINE OPERATOR Unspecified Dementia Unspecified Severity Without Behavioral Disturbance 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) ECG Routine 11/26/2023 1:08 PM BONDACTOR MACHINE OPERATOR Unspecified Dementia Unspecified Severity Without Behavioral Disturbance 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) AZ ORGANIC ACID 1 QUANT 2 Routine 11/26/2023 11:30 AM BONDACTOR MACHINE OPERATOR ADDITIONAL SAMPLE FOR REFLEX OLIGS Routine 11/26/2023 11:30 AM BONDACTOR MACHINE OPERATOR Unspecified Dementia Unspecified Severity Without Behavioral Disturbance 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) APOLIPOPROTEIN E GENOTYPING, B Routine 11/26/2023 11:30 AM BONDACTOR MACHINE OPERATOR Unspecified Dementia Unspecified Severity Without Behavioral Disturbance 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) PERNICIOUS ANEMIA CASCADE, S Routine 11/26/2023 11:30 AM BONDACTOR MACHINE OPERATOR Unspecified Dementia Unspecified Severity Without Behavioral Disturbance 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) THYROID FUNCTION CASCADE, S Routine 11/26/2023 11:30 AM BONDACTOR MACHINE OPERATOR Unspecified Dementia Unspecified Severity Without Behavioral Disturbance 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) COMPREHENSIVE METABOLIC PANEL, S/P Routine 11/26/2023 11:30 AM BONDACTOR MACHINE OPERATOR Unspecified Dementia Unspecified Severity Without Behavioral Disturbance 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) ACTIVATED PARTIAL THROMBOPLASTIN TIME (APTT), P Routine 11/26/2023 11:30 AM BONDACTOR MACHINE OPERATOR Unspecified Dementia Unspecified Severity Without Behavioral Disturbance 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) PROTHROMBIN TIME (PT), P Routine 11/26/2023 11:30 AM BONDACTOR MACHINE OPERATOR Unspecified Dementia Unspecified Severity Without Behavioral Disturbance 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) CBC WITH DIFFERENTIAL, B Routine 11/26/2023 11:30 AM BONDACTOR MACHINE OPERATOR Unspecified Dementia Unspecified Severity Without Behavioral Disturbance 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) MR BRAIN DEMENTIA WITHOUT IV CONTRAST RAD - Routine (most inpatients and all outpatients) 11/26/2023 7:23 AM BONDACTOR MACHINE OPERATOR Unspecified Dementia Unspecified Severity Without Behavioral Disturbance 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) from Last 3 Months Results * PET CT Brain Metabolic Evaluation (11/27/2023 2:45 PM BONDACTOR MACHINE OPERATOR) Anatomical Region Laterality Modality Brain, Nuclear Medicine PET RST LOS, PET ARZ LOS, Nuclear Medicine PET FLA LOS, Nuclear Medicine N/A Positron Emission Tomography (PET), Positron Emission Tomography (PET) 11/27/2023 2:44 PM BONDACTOR MACHINE OPERATOR Impressions 11/27/2023 2:55 PM BONDACTOR MACHINE OPERATOR No pattern of cerebral glucose hypometabolism to suggest a specific neurodegenerative disorder with tracer distribution within normal limits for age. Narrative 11/27/2023 2:55 PM BONDACTOR MACHINE OPERATOR EXAM: ??PET CT BRAIN METABOLIC EVALUATION Serum glucose at time of F-18 FDG injection was 87 mg/dL. RADIOPHARMACEUTICAL/MEDS: Route: intravenous fludeoxyglucose F 18 injection [facility] (FDG F-18),4.72 millicurie TECHNIQUE: F-18 FDG PET/CT scan was performed of the brain with low dose, non-contrast, free-breathing CT images for attenuation correction and anatomic localization (AC/AL), with imaging beginning at approximately 30 minutes after radiotracer injection. Cortex ID performed. COMPARISON: ??MR brain 11/26/2023. INDICATION: ??Mild cognitive impairment. Procedure Note Sid Mckeon M.D. - 11/27/2023 EXAM: PET CT BRAIN METABOLIC EVALUATION Serum glucose at time of F-18 FDG injection was 87 mg/dL. RADIOPHARMACEUTICAL/MEDS: Route: intravenous fludeoxyglucose F 18 injection [facility] (FDG F-18),4.72 millicurie TECHNIQUE: F-18 FDG PET/CT scan was performed of the brain with low dose,non-contrast, free-breathing CT images for attenuation correction andanatomic localization (AC/AL), with imaging beginning at approximately 30minutes after radiotracer injection. Cortex ID performed. COMPARISON: MR brain 11/26/2023. INDICATION: Mild cognitive impairment. IMPRESSION: No pattern of cerebral glucose hypometabolism to suggest a specificneurodegenerative disorder with tracer distribution within normal limitsfor age. Anselmo Barrios M.D., Ph.D. [employer] PROCED ES * Immunoglobulin Industry Free Light Chain, CSF (automatically paired with serum) (11/27/2023 9:23 AM BONDACTOR MACHINE OPERATOR) [facility] Industry Free Light Chain, CSF 0.0565 <0.1000 mg/dL 11/28/2023 8:32 AM BONDACTOR MACHINE OPERATOR [facility] Comment: Negative. The kappa free light concentration measured in CSF is lower than the threshold associated with multiple sclerosis. Clinical correlation recommended. ----ADDITIONAL INFORMATION---- This test has been modified from the or assistant's instructions. Its performance characteristics were determined by [facility] in a manner consistent with CLIA requirements. This test has not been cleared or approved by the U.S. Food and Drug Administration. A [facility] study published in 2018 with 325 patients ?? suggested that a kappa free light chain concentration in CSF greater than or equal to 0.06 mg/dL has 92% clinical sensitivity in the diagnosis of multiple sclerosis (ref 1). A second, larger [facility] study with 1355 patients published in 2020 showed that a kappa CSF concentration greater than or equal to 0.06 mg/dL had approximately 89% sensitivity. When kappa was greater than or equal to 0.1 mg/dL it had similar sensitivity (87%) to the finding of 2 unique CSF oligoclonal bands (89%) (ref 2). ?? Given the difference in thresholds based on these studies and highest sensitivity at the threshold of 0.06mg/dL, any ?? CSF kappa free light chain result greater than or equal to 0.06 mg/dL will reflex to oligoclonal banding when the ?? multiple sclerosis profile tests are ordered. A result less than 0.06 mg/dL is considered negative. A result between 0.06 and 0.099 mg/dL is considered borderline; look for oligoclonal banding test results. A result greater than or equal to 0.1 mg/dL is considered positive; look for oligoclonal banding test results. References: 1.Lynn KM, Jose E, Chu FLORES, Dinorah PURDY, ?? Ian CRUZ, Rocky GARCIA, et al. CSF free light chain identification of demyelinating disease: comparison with oligoclonal banding and other CSF indexes. Clin Chem Lab Med. 2018;56(7):1071-80. 2.Sina AGUILLON, Chu FLORES, Uri Dallas, Steven B, Ian CRUZ, Rocky GARCIA, et al. CSF Industry Free Light ?? Chains: Cutoff Validation for Diagnosing Multiple Sclerosis. [facility] Clin Proc. 2020; A[address](67)96010-2. doi: 10.1016/j.mayocp.202.09.014. Cerebrospinal Fluid (Cerebrospinal Fluid) 11/27/2023 9:23 AM BONDACTOR MACHINE OPERATOR 11/28/2023 6:46 AM BONDACTOR MACHINE OPERATOR Anselmo Barrios M.D., Ph.D. LAB BODY FLUIDS AND STOOLS ORDERABLES [facility] [address] [place] [address] [facility] [address] [place] [address] * (ABNORMAL) Alzheimer???s Disease Evaluation, CSF (11/27/2023 9:23 AM BONDACTOR MACHINE OPERATOR) [facility] p-Tau/Abeta42 0.063(H) <=0.028 ratio 11/27/2023 2:13 PM [facility] AD Interpretation SEE COMMENT 11/27/2023 2:13 PM [facility] Comment: The elevated p-Tau/Abeta42 ratio may be consistent with the presence of pathological changes associated with Alzheimer's disease. An abnormal p-Tau/Abeta42 ratio in the context of a normal Abeta42 may be observed in some individuals. In some situations, inter-individual differences in overall concentration of Abeta peptide production and/or in p-Tau elevation stemming from other neurodegenerative disease may result in an abnormal p-Tau/Abeta42 ratio. Results should be interpreted in concordance with other clinical information. The p-Tau/Abeta42 ratio provides better concordance with amyloid Positron Emission Tomography (PET) imaging when compared to Abeta42, phospho-Tau and total-Tau individually. A cut-off of 0.028 provides optimal balance between negative % agreement (NPA) and positive % agreement (PPA) when compared to amyloid PET results. A p-Tau/Abeta42 ratio of < or =0.028 has a 92% NPA with normal amyloid PET. A ratio of >0.028 has a 92% PPA with abnormal amyloid PET. Failure to adhere to sample collection instructions provided in the Lab Test Catalog may result in falsely reduced Abeta42 concentrations; potentially affecting subsequent interpretations as well as the p-Tau/Abeta42 ratio. The p-Tau assay measures p-Tmu225 (Tau phosphorylated at threonine 181). ----ADDITIONAL INFORMATION---- The testing method is an electrochemiluminescence assay manufactured by [employer] Effective March 28, 2023, a formulation change was implemented in the [employer] Abeta42 and p-Ltv597 reagent (Generation I to Generation II). Internal studies indicate a resulting increase in the calculated p-Tau/Abeta42 ratio under specified assay collection conditions when using the new reagent formulation. Accordingly, the ratio reference value has been modified from <=0.023 (Gen I) to <=0.028 (Gen II). Values obtained with different assay methods or kits may be different and cannot be used interchangeably. Abeta42 934 >834 pg/mL 11/27/2023 2:13 PM [facility] Comment: ----ADDITIONAL INFORMATION---- The testing method is an electrochemiluminescence assay manufactured by [employer] Effective March 28, 2023, a formulation change was implemented in the [employer] Abeta42 reagent (Generation I to Generation II). The Ele[employer]ys B-Amyloid (1-42) CSF II assay was restandardized using certified reference materials (CRMs) ERM-DA480/-481/-482/[facility]. Internal studies indicate a reduction in measured Abeta42 concentration (an approximate 19% decrease at the reference value) under specified assay collection conditions when using the new reagent formulation. Accordingly, the reference value has been changed from >1026 pg/mL (Gen I) to >834 pg/mL (Gen II). Values obtained with different assay methods or kits may be different and cannot be used interchangeably. Total-Tau 490(H) <=238 pg/mL 11/27/2023 2:13 PM [facility] Comment: ----ADDITIONAL INFORMATION---- The testing method is an electrochemiluminescence assay manufactured by [employer] Values obtained with different assay methods or kits may be different and cannot be used interchangeably. This test was developed and its performance characteristics determined by [facility] in a manner consistent with CLIA requirements. This test has not been cleared or approved by the U.S. Food and Drug Administration. Phospho-Tau(181P) 58.6(H) <=21.6 pg/mL 11/27/2023 2:13 PM [facility] Comment: ----ADDITIONAL INFORMATION---- The testing method is an electrochemiluminescence assay manufactured by [employer] Effective March 28, 2023, a formulation change was implemented in the [employer] p-Aun374 reagent (Generation I to Generation II). Internal studies indicate a slight reduction in measured p-Qxb290 concentrations under specified assay collection conditions when using the new reagent formulation. Accordingly, the reference value has been modified from < or = 21.7 pg/mL (Gen I) to < or = 21.6 (Gen II). Values obtained with different assay methods or kits may be different and cannot be used interchangeably. Cerebrospinal Fluid (Cerebrospinal Fluid) 11/27/2023 9:23 AM BONDACTOR MACHINE OPERATOR 11/27/2023 1:22 PM BONDACTOR MACHINE OPERATOR Anselmo Barrios M.D., Ph.D. LAB BODY FLUIDS AND STOOLS ORDERABLES [facility] [address] [place] [address] [facility] [address] [place] [address] * Cell Count and Differential, CSF (11/27/2023 9:23 AM BONDACTOR MACHINE OPERATOR) Fluid Type CSF 11/27/2023 10:21 AM BONDACTOR MACHINE OPERATOR [facility] CSF Gross Appearance Clear 11/27/2023 10:21 AM BONDACTOR MACHINE OPERATOR PM Total Nucleated Cells 4 0 - 5 /mcL 11/27/2023 10:21 AM BONDACTOR MACHINE OPERATOR [facility] Comment: ----ADDITIONAL INFORMATION---- This test has been modified from the or assistant's instructions. Its performance characteristics were determined by [facility] in a manner consistent with CLIA requirements. This test has not been cleared or approved by the U.S. Food and Drug Administration. Erythrocytes 0 /mcL 11/27/2023 10:21 AM [facility] Comment: ----REFERENCE VALUE---- The reference range and other method performance specifications have not been established for this body fluid. The test result must be integrated into the clinical context for interpretation. Lymphocytes 66 % 11/27/2023 11:04 AM BONDACTOR MACHINE OPERATOR [facility] Comment: ----REFERENCE VALUE---- Adult: (60% +/- 20%) Neonates: (20% +/- 15%) Monocytes/Macrophag es 34 % 11/27/2023 11:04 AM [facility] Comment: ----REFERENCE VALUE---- Adult: (30% +/- 15%) Neonates: (70% +/- 20%) Diff Comments See Comment 11/27/2023 11:04 AM BONDACTOR MACHINE OPERATOR PM Comment:No abnormal cells se en. 76 cells counted. Comment See Comment 11/27/2023 11:04 AM [facility] Comment:No blasts or maligna nt cells seen. Reviewed by: [place] 11/27/2023 11:04 AM BONDACTOR MACHINE OPERATOR [facility] Fluid (Cerebrospinal Fluid) 11/27/2023 9:23 AM BONDACTOR MACHINE OPERATOR 11/27/2023 9:52 AM BONDACTOR MACHINE OPERATOR Anselmo Barrios M.D., Ph.D. LAB BODY FLUIDS AND STOOLS ORDERABLES Performing Organization Address City/[facility]/ZIP Co de Phone Number [facility] [address] [place], [place] [id number] [place] [address] 200 [place] [address] * (ABNORMAL) Protein, Total, CSF (11/27/2023 9:23 AM BONDACTOR MACHINE OPERATOR) Protein, Total, CSF 53(H) 0 - 35 mg/dL 11/27/2023 10:21 AM BONDACTOR MACHINE OPERATOR DT Cerebrospinal Fluid (Cerebrospinal Fluid) 11/27/2023 9:23 AM BONDACTOR MACHINE OPERATOR 11/27/2023 9:38 AM BONDACTOR MACHINE OPERATOR Anselmo Barrios M.D., Ph.D. LAB BODY FLUIDS AND STOOLS ORDERABLES Performing Organization Address [facility] Co de Phone Number [facility] [address] [place], [place] [address] [place] [address] 200 [place] [address] * Glucose, CSF (11/27/2023 9:23 AM BONDACTOR MACHINE OPERATOR) Glucose, CSF 54 mg/dL 11/27/2023 10:21 AM BONDACTOR MACHINE OPERATOR DT Comment: ----REFERENCE VALUE---- CSF glucose concentration should be approximately 60% of the plasma /serum concentration and should be compared with concurrently measured plasma /serum glucose for adequate clinical interpretation. Cerebrospinal Fluid (Cerebrospinal Fluid) 11/27/2023 9:23 AM BONDACTOR MACHINE OPERATOR 11/27/2023 9:38 AM BONDACTOR MACHINE OPERATOR Anselmo Barrios M.D., Ph.D. LAB BODY FLUIDS AND STOOLS ORDERABLES Performing Organization Address City/[facility] Co de Phone Number [facility] [address] [place], [place] [id number] [place] [address] [address] [place] [address] * [place] PUNCTURE SPINAL LUMBAR DX (11/27/2023 8:30 AM BONDACTOR MACHINE OPERATOR) Narrative MMODAL - 11/27/2023 8:30 AM BONDACTOR MACHINE OPERATOR Tana Stanford R.N. ? 11/27/2023 10:08 AM Lumbar puncture neurology Performed by: Tana Stanford R.N. Authorized by: Anselmo Barrios M.D., Ph.D. ?? PROCEDURE DETAILS Patient position: left lateral decubitus Lumbar space: L3-L4 interspace Needle gauge: 20 G Needle type: spinal needle - Quincke tip Needle length (in): 3.5 Number of attempts: 1 (1 pass) Opening pressure (mm H2O): 150 Fluid appearance: clear Total volume (mL): 7.5 (1 ml Industry and 2.5 ml ROMERO both on wet ice sent to lab via tube station along with other ambient CSF.) Specimen collected: yes ?? CSF collection method: gravity pull CONSENT Consent obtained: written (Risks, benefits and alternatives were discussed and a written Informed Consent was obtained. Please see Informed Consent form for further details.) UNIVERSAL PROTOCOL All relevant documentation and testing were reviewed and available. All required blood products, implants, devices and or special equipment were made available as applicable. Pre-procedure verification was conducted and the correct site was marked if required. A fire risk assessment was done as applicable. The procedural time-out to verify correct patient, correct side/site, and procedure was conducted prior to performing the procedure and confirmed in a procedural pause. PRE-PROCEDURE DETAILS Procedure purpose: diagnostic Indication comment: Unspecified dementia Site preparation: povidone-iodine Appropriate hand hygiene, gown, cap, mask, protective eyewear, sterile gloves, skin preparation, sterile drape, and strict aseptic technique were utilized as applicable for the procedure: yes ?? SEDATION / ANESTHESIA Anesthesia method: local infiltration Local infiltrate type: lidocaine, see MAR for dose POST-PROCEDURE DETAILS Procedure completed successfully: yes ?? Puncture site: adhesive bandage applied, direct pressure applied and clean and dry Complications: no immediate complications ?? Comments Patient was educated on lumbar puncture procedure, post procedure care, and written consent was obtained. Patient denied any pain or headache before the procedure. Patient tolerated the procedure and CSF was collected successfully. Patient denied pain or headache post procedure. ?? Band-aid was clean, dry, and intact. Tana Hien, RN Anselmo Barrios M.D., Ph.D. NEUROLOGY ORDER MOSES Performing Organization Address City/[facility] Co de Phone Number MMODAL NA * ECG 12 Lead (11/26/2023 1:08 PM BONDACTOR MACHINE OPERATOR) Ventricular Rate ECG/Min 67 BPM MUSE AZ Interval 212 ms MUSE QRSD Interval 108 ms MUSE QT Interval 436 ms MUSE QTC Interval 460 ms MUSE P Dunlap 54 degrees MUSE R [place] 6 degrees MUSE T Wave [place] 49 degrees MUSE 11/26/2023 1:08 PM BONDACTOR MACHINE OPERATOR 11/26/2023 1:30 PM BONDACTOR MACHINE OPERATOR Impressions MUSE - 11/26/2023 1:30 PM BONDACTOR MACHINE OPERATOR Sinus rhythm with 1st degree A-V block Moderate voltage criteria for LVH, may be normal variant ( R in aVL , Kenny product ) Nonspecific ST abnormality No previous ECGs available Reviewed by NEY Hare Narrative Procedure Note Ho Baez M.D., Ph.D. - 11/26/2023 IMPRESSION: Sinus rhythm with 1st degree A-V block Moderate voltage criteria for LVH, may be normal variant ( R in aVL ,Kenny product ) Nonspecific ST abnormality No previous ECGs available Reviewed by NEY Hare Anselmo Barrios M.D., Ph.D. ECG ORDERABLES Performing Organization Address [facility] de Phone Number MUSE NA * Additional Sample for Reflex Oligoclonal Banding (11/26/2023 11:30 AM BONDACTOR MACHINE OPERATOR) Additional sample for reflex OLIGS Collected DEFAULT 11/27/2023 6:29 AM BONDACTOR MACHINE OPERATOR [facility] Blood (Blood, Venous) 11/26/2023 11:30 AM BONDACTOR MACHINE OPERATOR 11/27/2023 6:29 AM BONDACTOR MACHINE OPERATOR Anselmo Barrios M.D., Ph.D. LAB BLOOD NON A DD-ON Performing Organization Address City/[facility] Co de Phone Number [facility] [address] [place] [address] [facility] [address] [place] [address] * Methylmalonic Acid (MMA), Quantitative, Serum (11/26/2023 11:30 AM BONDACTOR MACHINE OPERATOR) Pathologist [facility] Methylmalonic Acid, QN, S 0.14 <=0.40 nmol/mL 11/28/2023 1:26 PM BONDACTOR MACHINE OPERATOR DT Comment: No cellular B-12 deficiency. ----ADDITIONAL INFORMATION---- This test was developed and its performance characteristics determined by [facility] in a manner consistent with CLIA requirements. This test has not been cleared or approved by the U.S. Food and Drug Administration. Blood 11/26/2023 11:3 0 AM BONDACTOR MACHINE OPERATOR 11/26/2023 4:54 PM BONDACTOR MACHINE OPERATOR Anselmo Barrios M.D., Ph.D. LAB BLOOD NON A DD-ON Performing Organization Address City/[facility]/ZIP Co de Phone Number [facility] [address] [place] [address] * Thyroid Function [place] (11/26/2023 11:30 AM BONDACTOR MACHINE OPERATOR) [facility] TSH, Sensitive 2.2 0.3 - 4.2 mIU/L 11/26/2023 12:31 PM BONDACTOR MACHINE OPERATOR DT Blood (Blood, Venous) 11/26/2023 11:30 AM BONDACTOR MACHINE OPERATOR 11/26/2023 11:52 AM BONDACTOR MACHINE OPERATOR Anselmo Barrios M.D., Ph.D. LAB BLOOD ADD-O N Performing Organization Address City/[facility]/ZIP Co de Phone Number [facility] [address] [place] [address], [facility] [address] [place] [address] * Pernicious Anemia [place] (11/26/2023 11:30 AM BONDACTOR MACHINE OPERATOR) [facility] Vitamin B12 Assay, S 390 180 - 914 ng/L 11/26/2023 4:54 PM BONDACTOR MACHINE OPERATOR [facility] Comment:B-12 <400; MMA test was performed. Blood (Blood, Venous) 11/26/2023 11:30 AM BONDACTOR MACHINE OPERATOR 11/26/2023 3:07 PM BONDACTOR MACHINE OPERATOR Anselmo Barrios M.D., Ph.D. LAB BLOOD NON A DD-ON [facility] [address] [place] [address] [facility] [address] [place] [address] * Apolipoprotein E Genotyping (11/26/2023 11:30 AM BONDACTOR MACHINE OPERATOR) Result Summary COMPLEX (SEE RESULT AND INTERPRETATION) 11/28/2023 10:26 AM BONDACTOR MACHINE OPERATOR DTL Result Genotype: e3/e4 10:26 AM BONDACTOR MACHINE OPERATOR DTL Reason for Referral Test for the presence of the e2, e3, and e4 alleles in the APOE gene. 11/28/2023 10:26 AM BONDACTOR MACHINE OPERATOR DTL Specimen WB Whole Blood 11/28/2023 10:26 AM BONDACTOR MACHINE OPERATOR DTL Released By Sd Erazo, Ph.D. 11/28/19 10:26 AM BONDACTOR MACHINE OPERATOR DTL Interpretation The e4 allele leads to down regulation of the LDL receptor in the liver and is associated with increased total cholesterol, triglycerides, and LDL. In a large meta-analysis, the presence of the e3/e4 or e4/e4 genotype was reported to confer a 42% increased risk of cardiovascular disease (1). The APOE gene is also a known susceptibility gene for Alzheimer disease (AD). ??The e4 allele is associated with an increased risk for AD, particularly late-onset disease, in a dose dependent manner (2). ??This risk is also influenced by other factors. ?? It is estimated that individuals with the APOE e3/e4 genotype have a four-fold relative risk for Alzheimer disease, while homozygotes for e4 allele have a 12-fold relative risk. ??Several studies have suggested a protective effect of the APOE e2 allele. The APOE e4 allele, however, is neither sufficient nor necessary for the development of Alzheimer disease. Approximately 50% of individuals with Alzheimer disease carry an e4 allele and many individuals who have an e4 allele will never develop Alzheimer disease. ??The use of APOE analysis for predictive testing for Alzheimer disease is not currently recommended by the [place] [employer] due to limited clinical utility and poor predictive value (3, 4). Less common APOE variants that do not alter a restriction site for HhaI will not be detected by this assay. REFERENCES 1. Anai Int Med. 2004, 141:137-47 (PMID [id number]) 2. KITTY 1997; 278:4553-6939 (PMID [id number]) 3. Janine Med 2011; 13:597-605 (PMID [id number]) 4. [place] [employer] 2014May 07. Retrieved from www.choosingwise ly.org/societies /taiwanese-colle z-us-vvntyaa -tkokpayt-ghs-rz nomics/) 11/28/2023 10:26 AM GORGE COPELAND Comment: ----ADDITIONAL INFORMATION---- A PCR-based assay, including Service Worker Helper I digestion of the amplified product, was utilized to identify the three common APOE alleles (epsilon2, epsilon3, and epsilon4). An online research opportunity called [employer]ockscreen (PagerDuty.[email or web address]), a project of [employer], is available for the recipient of this genetic test. This patient registry collects de-identified genetic and health information to advance the knowledge of genetic variants. [facility] is a collaborator of [employer]. This may not be applicable for all tests. Test results should be interpreted in the context of clinical findings, family history, and other laboratory data. Misinterpretation of results may occur if the information provided is inaccurate or incomplete. Rare polymorphisms exist that could lead to false-negative or false-positive results. If results obtained do not match the clinical findings, additional testing should be considered. Bone Marrow transplants from allogenic donors will interfere with testing. Call [facility] for instructions for testing patients who have received a bone marrow transplant. One or more in silico tools were used to assist in the interpretation of these results. These tools are updated regularly and predictions for a given variant may change. ??Additionally, the predictability of these tools for the determination of pathogenicity is currently unvalidated. This test was developed and its performance characteristics determined by [facility] in a manner consistent with CLIA requirements. This test has not been cleared or approved by the U.S. Food and Drug Administration. Blood (Blood, Venous) 11/26/2023 11:30 AM BONDACTOR MACHINE OPERATOR 11/26/2023 11:56 AM BONDACTOR MACHINE OPERATOR Anselmo Barrios M.D., Ph.D. LAB GENETIC OSMAN MAUREEN Performing Organization Address City/[facility] Co de Phone Number [facility] [address] [place] [address], [facility] DT 200 [facility] [address] [place] [address] * APTT (Activated Partial Thromboplastin Time) (11/26/2023 11:30 AM BONDACTOR MACHINE OPERATOR) Activated Partial Thrombopl Time, P 28 25 - 37 sec 11/26/2023 12:05 PM BONDACTOR MACHINE OPERATOR DTL Blood (Blood, Venous) 11/26/2023 11:30 AM BONDACTOR MACHINE OPERATOR 11/26/2023 11:42 AM BONDACTOR MACHINE OPERATOR Anselmo Barrios M.D., Ph.D. LAB BLOOD ADD-O N Performing Organization Address [facility] de Phone Number [facility] [address] [place] [address], [facility] [address] [place] [address] * Prothrombin Time (PT) (11/26/2023 11:30 AM BONDACTOR MACHINE OPERATOR) Prothrombin Time, P 11.2 9.4 - 12.5 sec 11/26/2023 12:05 PM BONDACTOR MACHINE OPERATOR DTL INR 1.0 0.9 - 1.1 11/26/2023 12:05 PM BONDACTOR MACHINE OPERATOR DTL Comment: ----ADDITIONAL INFORMATION---- Standard intensity warfarin therapeutic range: 2.0 to 3.0 ?? High intensity warfarin therapeutic range: 2.5 to 3.5 Blood (Blood, Venous) 11/26/2023 11:30 AM BONDACTOR MACHINE OPERATOR 11/26/2023 11:42 AM BONDACTOR MACHINE OPERATOR Anselmo Barrios M.D., Ph.D. LAB BLOOD ADD-O N Performing Organization Address City/[facility] Co de Phone Number [facility] [address] [place] [address], [facility] DTL [facility] [address] [place] [address] * CBC with Differential, Blood (11/26/2023 11:30 AM BONDACTOR MACHINE OPERATOR) Hemoglobin 14.7 13.2 - 16.6 g/dL 11/26/2023 11:49 AM BONDACTOR MACHINE OPERATOR DTL Hematocrit 43.3 38.3 - 48.6 % 11/26/2023 11:49 AM BONDACTOR MACHINE OPERATOR DTL Erythrocytes 4.71 4.35 - 5.65 x10(12)/L 11/26/2023 11:49 AM BONDACTOR MACHINE OPERATOR DTL MCV 91.9 78.2 - 97.9 fL 11/26/2023 11:49 AM BONDACTOR MACHINE OPERATOR DTL RBC Distrib Width 12.0 11.8 - 14.5 % 11/26/2023 11:49 AM BONDACTOR MACHINE OPERATOR DTL Platelet Count 209 135 - 317 x10(9)/L 11/26/2023 11:49 AM BONDACTOR MACHINE OPERATOR DTL Leukocytes 6.7 3.4 - 9.6 x10(9)/L 11/26/2023 11:49 AM BONDACTOR MACHINE OPERATOR DTL Neutrophils 4.09 1.56 - 6.45 x10(9)/L 11/26/2023 11:49 AM BONDACTOR MACHINE OPERATOR [facility]PM Lymphocytes 1.89 0.95 - 3.07 x10(9)/L 11/26/2023 11:49 AM BONDACTOR MACHINE OPERATOR DTL Monocytes 0.49 0.26 - 0.81 x10(9)/L 11/26/2023 11:49 AM BONDACTOR MACHINE OPERATOR DTL Eosinophils 0.16 0.03 - 0.48 x10(9)/L 11/26/2023 11:49 AM BONDACTOR MACHINE OPERATOR DTL Basophils 0.05 0.01 - 0.08 x10(9)/L 11/26/2023 11:49 AM BONDACTOR MACHINE OPERATOR DTL Blood (Blood, Venous) 11/26/2023 11:30 AM BONDACTOR MACHINE OPERATOR 11/26/2023 11:42 AM BONDACTOR MACHINE OPERATOR Anselmo Barrios M.D., Ph.D. LAB BLOOD ADD-O N [facility] [address] [place] [address], [place] DTL [facility] [address] [place] [address] [facility] [address] [place] [address] * Comprehensive Metabolic Panel (11/26/2023 11:30 AM BONDACTOR MACHINE OPERATOR) [facility] Potassium, S 4.3 3.6 - 5.2 mmol/L 11/26/2023 12:31 PM BONDACTOR MACHINE OPERATOR DTL Sodium, S 140 135 - 145 mmol/L 11/26/2023 12:31 PM BONDACTOR MACHINE OPERATOR DTL Chloride, S 105 98 - 107 mmol/L 11/26/2023 12:31 PM BONDACTOR MACHINE OPERATOR DTL Bicarbonate, S 27 22 - 29 mmol/L 11/26/2023 12:31 PM BONDACTOR MACHINE OPERATOR DTL Anion Gap 8 7 - 15 11/26/2023 12:31 PM BONDACTOR MACHINE OPERATOR DTL BUN (Blood Urea Nitrogen), S 13 8 - 24 mg/dL 11/26/2023 12:31 PM BONDACTOR MACHINE OPERATOR DTL Creatinine 0.99 0.74 - 1.35 mg/dL 11/26/2023 12:31 PM BONDACTOR MACHINE OPERATOR DTL Estimated GFR (eGFR) 83 >=60 mL/min/BS A 11/26/2023 12:31 PM BONDACTOR MACHINE OPERATOR DTL Comment: Estimated GFR calculated using the 2020 CKD_EPI creatinine equation. Calcium, Total, S 9.3 8.8 - 10.2 mg/dL 11/26/2023 12:31 PM BONDACTOR MACHINE OPERATOR DTL Glucose, S 98 70 - 140 mg/dL 11/26/2023 12:31 PM BONDACTOR MACHINE OPERATOR DTL Protein, Total, S 7.3 6.3 - 7.9 g/dL 11/26/2023 12:31 PM BONDACTOR MACHINE OPERATOR DTL Albumin, S 4.3 3.5 - 5.0 g/dL 11/26/2023 12:31 PM BONDACTOR MACHINE OPERATOR DTL Aspartate Aminotransferase (AST), S 28 8 - 48 U/L 11/26/2023 12:31 PM BONDACTOR MACHINE OPERATOR DTL Alkaline Phosphatase, S 119 40 - 129 U/L 11/26/2023 12:31 PM BONDACTOR MACHINE OPERATOR DTL Alanine Aminotransferase (ALT), S 32 7 - 55 U/L 11/26/2023 12:31 PM BONDACTOR MACHINE OPERATOR DTL Bilirubin, Total, S 1.2 0.0 - 1.2 mg/dL 11/26/2023 12:31 PM BONDACTOR MACHINE OPERATOR DTL Blood (Blood, Venous) 11/26/2023 11:30 AM BONDACTOR MACHINE OPERATOR 11/26/2023 11:52 AM BONDACTOR MACHINE OPERATOR Anselmo Barrios M.D., Ph.D. LAB BLOOD ADD-O N [facility] [address] [place] [address], [facility] DTL [facility] [address] [place] [address] * MR Brain Dementia without IV Contrast (11/26/2023 7:23 AM BONDACTOR MACHINE OPERATOR) Anatomical Region Laterality Modality Head, Brain, Neuroradiology RST LOS, Neuroradiology ARZ LOS N/A Magnetic Resonance Impressions 11/26/2023 8:00 AM BONDACTOR MACHINE OPERATOR 1. ??Total microhemorrhages: None 2. ??Superficial siderosis is not detected. 3. 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 Narrative 11/26/2023 8:00 AM BONDACTOR MACHINE OPERATOR EXAM: MR BRAIN DEMENTIA WITHOUT IV CONTRAST COMPARISON: MR brain 01/22/2023 FINDINGS: Total microhemorrhages: None Superficial siderosis: none Chronic infarcts: Remote lacunar infarct in the right caudate head. White matter hyperintensities: moderate Additional findings: Patchy to confluent T2 hyperintense foci in the periventricular and deep white matter compatible with moderate chronic small vessel ischemic changes. No diffusion restriction. The right hippocampus appears smaller than the left, as quantified below. The major arterial flow voids appear grossly patent. Mild paranasal sinus mucosal thickening. Image post-processing for quantitative segmental volume reporting and assessment was performed on an independent computer clock and watch hands mounter using [employer] software. The clinical indication for performing the post-processing was dementia. ??Review of the quality improvement specialist images demonstrates suboptimal segmentation of the hippocampi. ??The hippocampal volumes are likely overestimated based on the segmentation. Left hippocampal volume: ??3.38 Right hippocampal volume: ??2.54 Hippocampal asymmetry index: ??28.51 Combined hippocampal volume: ??5.91 Combined hippocampal volume age-adjusted percentile: ??1.00 Combined inferior lateral ventricles (temporal horns) volume: ??2.84 Combined inferior lateral ventricles (temporal horns) age-adjusted percentile: ??66.00 Procedure Note Jamil Trejo M.D., Ph.D. - 11/26/2023 EXAM: MR BRAIN DEMENTIA WITHOUT IV CONTRAST COMPARISON: MR brain 01/22/2023 FINDINGS: Total microhemorrhages: None Superficial siderosis: none Chronic infarcts: Remote lacunar infarct in the right caudate head. White matter hyperintensities: moderate Additional findings: Patchy to confluent T2 hyperintense foci in theperiventricular and deep white matter compatible with moderate chronicsmall vessel ischemic changes. No diffusion restriction. The righthippocampus appears smaller than the left, as quantified below. The major arterial flow voids appear grossly patent.Mild paranasal sinus mucosal thickening. Image post-processing for quantitative segmental volume reporting andassessment was performed on an independent computer clock and watch hands mounter usingCaipiaobao software. The clinical indication for performing thepost-processing was dementia. Review of the quality improvement specialist images demonstrates suboptimal segmentation of the hippocampi.The hippocampal volumes are likely overestimated based on thesegmentation. Left hippocampal volume: 3.38 Right hippocampal volume: 2.54 Hippocampal asymmetry index: 28.51 Combined hippocampal volume: 5.91 Combined hippocampal volume age-adjusted percentile: 1.00 Combined inferior lateral ventricles (temporal horns) volume: 2.84 Combined inferior lateral ventricles (temporal horns) age-adjustedpercentile: 66.00 IMPRESSION: 1. Total microhemorrhages: None 2. Superficial siderosis is not detected. 3. Moderate chronic small vessel ischemic changes and remote lacunarinfarct in the right caudate head. Anselmo Barrios M.D., Ph.D. IMG MRI PROCEDU RES from Last 3 Months Care Teams Food Sanitarian Relationship Specialty Start Date End Date Elsewhere, Pcp PCP - General Internal Medicine 11/22/23
--- OUTSIDE RECORDS SUMMARY | 2023-12-10 14:05 | XMS_ITS | Referral Summary ---
Author Name Unknown Organization [facility] Address [address] [place] [address] Care Team Providers Care Air And Hydronic Balancing Technician Name Role Phone Jamarcus Cordero NP Primary Care Provider [phone] Allergies No known active allergies Medications Medication Sig Dispensed Refills Start Date End Date Status Omeprazole (PRILOSEC PO) 0 Active Citalopram Hydrobromide (CELEXA PO) 0 Active Atorvastatin Calcium (LIPITOR PO) 0 Active metoprolol succinate ER (TOPROL XL) 25 MG 24 hr tablet Take 0.5 tablets (12.5 mg) by mouth daily 30 tablet 0 05/15/2023 Active Social History Tobacco Use Types Packs/Day Years Used Date Smoking Tobacco: Former Alcohol Use Standard Drinks/Week Comments Yes 0 (1 standard drink = 0.6 oz pur e alcohol) rare Adolescent Education Answer Date Record ed Getting School Help Needed Not on file 07/28 Sex and Gender Information Value Date Recorded Sex Assigned at Not on file Gender Identity Not on file Sexual Orientation Not on file Last Filed Vital Signs Vital Sign Reading [...] Mass Index 30.68 05/15/2023 3:19 PM CDT Plan of Treatment Not on file Care Teams Air And Hydronic Balancing Technician Relationship Specialty Start [place] [id number] [place] [id number] PCP - General Nurse Practitioner 03/31/22
--- OUTSIDE RECORDS SUMMARY | 2023-12-10 14:05 | XMS_ITS | Encounter Summary ---
Author Name Unknown Organization [facility] Address [address] [place] [id number] Care Team Providers Care Public Health Analyst Name Role Phone Elsewhere, Pcp Primary Care Provider Unavailabl e Reason for Referral * Outpatient (Routine) - Authorized Specialty Diagnoses / Procedures Referred By Arlen t Referred To Contact Neurology Kiel Gomes M.D., Ph.D. [address] [place] [phone] [facility] Referral ID Status Reason Start Date Expiration Date V isits Requested Visits Authorized [id number] Authorized 11/30/2023 05/31/2025 1 1 Scheduling Instructions Schedule 24-48 hours before patient's infusion?? WASHER Encounter Details Date Type Department Care Team (Late st Contact Info) Description 11/30/2023 11:00 AM PIPE WASHER Education Department of Neurology in [place], [place] [address] [place] [phone] Anselmo Barrios M.D., Ph.D. [address] [place] [phone] Alice Camargo R.N. 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 I have a [facility] place to live 11/22/2023 Sex and Gender Information Value Date Recorded Sex Assigned at Male 11/21/2023 10:59 AM PIPE WASHER Gender Identity Male 11/21/2023 10:59 AM PIPE WASHER Sexual Orientation Straight 11/21/2023 10 :59 AM PIPE WASHER documented as of this encounter Progress Notes * Alice Camargo, RTapanN. - 11/30/2023 11:00 AM CST I met with Mr. and Mrs. Mcgowan to provide education regarding the Alzheimer???s [facility]rapeutic [facility] ([facility]) and Lecanemab (Leqembi). Patient Education Due to the patient's cognitive impairment, explained treatment plan to the patient and family/caregiver. Ready to learn. No apparent learning barriers were identified in the family/caregiver. Learning preferences include listening. Patient and family/caregiver expressed understanding of the content. Mr. Mcgowan preferred to verbally discuss the information, go over the lecanemab patient education power point, and all information was backed up with written materials that was given to Mr. Mcgowan. Lecanemab This medication helps to reduce amyloid from your brain Not a cure for Alzheimer???s disease, but data found it slows the rate of cognitive decline slightly in individuals with mild stages of disease Infusion given every two weeks in our Infusion Therapy Center ([facility]) Infusion administration time takes about one hour or so. The first 1-2 infusions will be longer to monitor for infusion reactions Dosing is based on your current weight, and your weight will be updated at each infusion Given over 18 months at which time reevaluation clinically and with additional testing, next steps will depend on those results and discussion of options at that time Lecanemab Registry Created to assist with Medicare coverage Being listed on this registry is a requirement to receive treatment If a Prior Authorization is Needed Lecanemab treatment will need to be approved by your insurance company before the infusion can be scheduled. Our prior authorization team will be working with your insurance company. Prior Authorizations may take up to two weeks How to Schedule Infusions [facility] [phone] will schedule the first infusion. The Infusion Therapy Center ([facility]) will assist you with scheduling the subsequent infusions. Please reach out if you are unable to make an infusion (e.g., due to weather or other scheduling issues); options would be either to push back infusion and future infusions by 1-2 calendar days (if they had been earlier in the week) or to delay the dosing schedule by a week. You MUST fill out the electronic questionnaire sent to your patient portal before the infusion. If you do not complete by the day prior to your infusion, your infusion appointment will be cancelled. This is a patient safety issue, so exceptions will not be made. Scheduling calendar is open for approximately 14 weeks at a time The date of the first infusion will determine the date of subsequent infusions We are currently scheduling infusions Tuesdays through . Questionnaire Completion is a MUST in order to receive your infusion If it is not completed, you will NOT be able to receive your infusion Will arrive in your patient portal 3 days prior to your scheduled infusion, subsequent questionnaires will arrive with each infusion IMPORTANT: you will need to complete this questionnaire at least 48 hours prior to each infusion If there is any reason that you should not receive the infusion after your questionnaire is reviewed, you will be notified Answer the questions honestly, as we make your safety a priority Questionnaire is used to report NEW or WORSENING symptoms Infusion Therapy Center ([facility]) Hours: 7 am to 7 pm Location: [facility] [address] Enter through the [facility] Level 1 doors and walk to the elevator straight ahead. The Infusion Therapy Clinic is on the 3rd floor. Infusion Reaction Symptoms that May Occur Infusion reactions are quite common (occurred in approximately 25% of patients in the trials). It is most frequent with the first/early doses, and generally manageable with observation and conservative remedies. Symptoms can include Headache Fever/chills Body aches Shakiness Fatigue Hypotension (drop in blood pressure) Hypertension (increase in blood pressure) Decrease in oxygen saturation Shortness of breath If these symptoms are felt during the infusion, please let your infusion nurse know. They may choose to slow down the infusion rate and give medications to help with these symptoms. Infusion Reaction Symptom Management Some infusion reaction symptoms can develop over the hours following dosing and may last up to 2-3 days but are expected to improve over time. Management of many of these symptoms can be done at home, and we can hopefully even prevent/limit intensity of some reaction symptoms upfront. To mitigate these potential symptoms, we recommend you take over the counter acetaminophen (Tylenol) 650 mg and loratadine (Claritin) at home 30 to 60 minutes before arriving at the infusion center for the first 3 months If infusion reaction symptoms (e.g., aches, chills, fever, malaise, headache, etc.) occur, you can repeat acetaminophen 650 mg at home every 4-6 hours up to daily maximum dose, as stated on the medication bottle; if symptoms are still bothersome, you can add diphenhydramine (Benadryl) 12.5 mg (thisis usually found as a 25 mg tablet that you can cut in half). Diphenhydramine (Benadryl) can sometimes cause drowsiness or cognitive clouding in some patients If you had a more severe reaction in the past, take acetaminophen 650 mg along with loratadine 10 mg at home. Please also let your provider know, as we may consider including IV methylprednisolone with your infusion for the next month with plans to reevaluate. Possible Side Effects to Alert Your Medical Provider Vision changes Headaches Balance difficulties or falls Dizziness Nausea and/or vomiting Fatigue Confusion Seizure-like activity Arm or leg weakness or numbness Trouble speaking or getting words out Other symptoms not listed ARIA (Amyloid-Related Imaging Abnormalities) A known potential side effect of lecanemab treatment ARIA refers to the swelling (edema) or bleeding in the brain related to treatment; this occurred inapproximately 20% of treated patients in the clinical trials Most commonly in the clinical trials, ARIA was found incidentally (i.e., was not associated with symptoms) on scheduled safety MRIs Approximately 3% of lecanemab treated patients in clinical trials had ARIA associated with neurological symptoms, which can range from mild to severe including risk of ARIA occurs most commonly early in the treatment course (first 6-9 months), and with prompt and appropriate management typically resolves/stabilizes within 4 months of detection During your treatment course, a combination of symptom questionnaires, virtual and in-person visits, and MRI scans will be used to monitor for ARIA Who to Contact with Concerns For routine questions, please contact your providers pesticide use medical coordinator who is listedon their business card. If you are experiencing any one of the side effects listed on the questionnaire, please seek urgentmedical evaluation. Seek immediate medical attention for any urgent symptom If you seek care in an urgent or emergent setting, please present your medical alert card to the provider you???re seeing to make them aware that you are receiving Lecanemab Contact Phone Numbers To reschedule or cancel appointments, call [phone]. For assistance with billing and insurance concerns, contact the Business Office at [phone] For [facility] Patient Support questions, call [facility] at [phone]. To be connected with Social Work, call [phone]. For medical concerns related to ADTC care, call [phone]. For urgent medical matters after hours, call [phone]. For medical emergencies, call [phone] or go to the nearest emergency room. Is Your Medical Record Up to Date? Please review your medical record to make sure this information is current. It is important to update us with any changes in your health, medical condition, medication changes/additions, and anything else you feel would be important to share. If your insurance coverage changes, we will need to place new infusion orders so a prior authorization can be submitted. Medical Alert Card Place this card in your wallet so you have it on you at all times. If you seek care in an urgent or emergent setting, please present your medical alert card to the provider you're seeing to make them aware that you are receiving Lecanemab Common Questions Is it ok to receive my flu vaccine, if my PCP has given me authorization for this? Yes (Possibly consider getting this vaccine before treatments start due to potential vaccine side effects) Is it ok to receive the COVID vaccine if my PCP has given me authorization for this? Yes If I am sick (influenza, COVID, cold virus, etc.) or not feeling well, is it ok for me to receive the infusion? If sick or generally not feeling well, you will need to let us know, as we may recommend holding off on infusion until you can be evaluated by your nutter up and are feeling better. Is it ok for me to go on a plane or travel? There are no specific issues with travel or airline flights per se, but we would encourage not having major travel plans in the first 6 months of treatments, as the risk of ARIA is highest at that time, and it would more important to be seen, get updated testing, etc. in case of side effects. Is someone required to accompany me to my Lecanemab infusions? No, but we do recommend for the first few infusions that you are accompanied by someone. Included education pieces: [facility] [id number] Lecanemab: Frequently Asked Questions [id number] Alzheimer's Disease Treatment Clinic: Genetic Testing [id number] CheckInPage patient education sheet on Lecanemab Stroke and Stroke Prevention [id number] [employer] How to Create a Patient Online Services Account [id number] Lecanemab Medical Alert Card, when available Websites & Resources www.[employer].SegmentFault www.spike.nih.org a website of the U.S. Department of Health and Human services www.dementiasociety.org Alzheimer's Association - [facility] Chapter http://www.alzmndak.org/ HBO - The Alzheimer's Project http://www.TriActive.com/alzheimers/ Research www.clinicaltrials.gov [place] Alzheimer's Disease Research [facility] http://mayoresearch.[facility]/pak/research/alzheimers_center/ Alzheimer's Disease at [facility] http://www.mayoclinic.org/alzheimers-disease/ Alzheimer's Association http://www.alz.org/ Alzheimer's Disease Education and Referral Center (ADEAR) http://www.spike.nih.gov/alzheimers NINDS Alzheimer's Disease Information Page http://www.ninds.nih.gov/disorders/alzheimersdisease/alzheimersdisease.htm [place] [employer] Neu[employer] - Alzheimer's disease http://patients.aan.com/disorders/index.cfm?event=view&disorder_id=844 The Forgetting - A Portrait of Alzheimer's Disease http://www.pbs.org/theforgetting/ Book: [facility] on Alzheimer's disease and other dementias: Kelvin Brooks M.D., Poppy Sanchez M.A., [facility] Press 2019 https://mcpress.[facility] [place].org/categories/wcmyazfd-cpg-jqcgfswrqk/xser-uvpcee-dp -fhilirjql-h-wscnktw-hyt-qhkel-vffnvicmy.php Book: Day to Day: Living with Dementia, A [facility] Guide for Offering Care and Support: Poppy Sanchez M.A https://mcpress.[facility] [place].org/product/hir-ab-xwa-wlsqjp-lomy-cvvxzkbh/ www.[employer].SegmentFault My Leqembi Tracker and Mrs. Mcgowan verbalized learning about Lecanemab and would like to proceed with receiving these infusions. All questions were answered. Mr. Reyer and family will reach out to our office with questions or concerns regarding Lecanemab as needed. 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
--- OUTSIDE RECORDS SUMMARY | 2023-12-10 14:05 | XMS_ITS | Clinical Summary ---
Author Name Unknown Organization [facility] Address [address] [place] [address] Care Team Providers Care Housing And Residence Life Director Name Role Phone Elsewhere, Pcp Primary Care Provider Unavailabl e Source Comments Patient records contain information from all sites at [facility]. For routine questions regarding patient records, call [phone] during business hours, M-F 8:00 AM - 5:00 PM Central Time. Record requests for emergency care only can be directed to [phone] at any time.[facility] Allergies No known active allergies Medications Medication [...] Psychotic disturbance Mood Disturbance And Anxiety 11/29/2023 Encounters Date Type Department Care Team Description 11/30/2023 11:00 AM ELECTRICAL INSTRUMENT TECHNICIAN Education Department of Neurology in [address] [phone] Anselmo Barrios M.D., Ph.D. Alice Camargo, RTapanN. Unspecified Dementia Unspecified Severity Without Behavioral Disturbance 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) 11/30/2023 Orders Only Department of Neurology in [address] [address] Kiel Gomes M.D., Ph.D. Unspecified Dementia Unspecified Severity Without Behavioral Disturbance 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) (Primary Dx) 11/29/2023 3:30 PM ELECTRICAL INSTRUMENT TECHNICIAN Clinical Support Department of Neurology in [place], [place] [address] [place] [phone] Anselmo Barrios M.D., Ph.D. Ida Calle L.I.C.S.W., M.S.W. Unspecified Dementia Unspecified Severity Without Behavioral Disturbance 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) 11/29/2023 1:00 PM ELECTRICAL INSTRUMENT TECHNICIAN Office Visit Department of Neurology in [place], [place] [address] [place] [phone] Anselmo Barrios M.D., Ph.D. Impairment Cognitive Mild (Primary Dx); Unspecified Dementia Unspecified Severity Without Behavioral Disturbance 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); Alzheimer's Disease (HCC) 11/27/2023 12:57 PM ELECTRICAL INSTRUMENT TECHNICIAN - 11/27/2023 11:59 PM ELECTRICAL INSTRUMENT TECHNICIAN Hospital Encounter Department of Radiology, [place], [place] [address] [place] [address] Anselmo Barrios M.D., Ph.D. Unspecified Dementia Unspecified Severity Without Behavioral Disturbance 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) Discharge Disposition: Home or Self Care 11/27/2023 8:30 AM ELECTRICAL INSTRUMENT TECHNICIAN Procedure visit Department of Neurology in [place], [place] [address] [place] [phone] Anselmo Barrios M.D., Ph.D. Tana Stanford R.N. Unspecified Dementia Unspecified Severity Without Behavioral Disturbance 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) 11/26/2023 3:00 PM ELECTRICAL INSTRUMENT TECHNICIAN Comprehensive Visit Department of Neurology in [place], [place] [address] [place] [phone] Anselmo Barrios M.D., Ph.D. Unspecified Dementia Unspecified Severity Without Behavioral Disturbance 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) (Primary Dx) 11/26/2023 12:30 PM ELECTRICAL INSTRUMENT TECHNICIAN Lab Department of Laboratory Medicine and Pathology, [facility] in [place], [place] [address] [place] [phone] Anselmo Barrios M.D., Ph.D. Unspecified Dementia Unspecified Severity Without Behavioral Disturbance 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) 11/26/2023 6:18 AM ELECTRICAL INSTRUMENT TECHNICIAN - 11/26/2023 11:59 PM ELECTRICAL INSTRUMENT TECHNICIAN Hospital [place] [address] [place] [address] Anselmo Barrios M.D., Ph.D. Unspecified Dementia Unspecified Severity Without Behavioral Disturbance 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) Discharge Disposition: Home or Self Care 11/26/2023 Documentation Department of Neurology in [place], [place] [address] [place] [phone] Anselmo Barrios M.D., Ph.D. 11/26/2023 Clinical Communication Department of Neurology in [place], [place] [address] [place] [phone] Anselmo Barrios M.D., Ph.D. 11/22/2023 8:30 AM [facility] Clinical Communication Virtual Review in [place], [place] 200 [place] [address] Pre-visit Intake 10/10/2023 Clinical Communication Department of Neurology in [place], [place] [address] [place] [phone] Anselmo Barrios M.D., Ph.D. 10/10/2023 Clinical Communication Department of Neurology in [place], [place] [address] [place] [phone] Provider, Unknown 10/09/2023 Clinical Communication Department of Neurology in [place], [place] [address] [place] [phone] Provider, Unknown from Last 3 Months Family History Medical History Relation Name Comments Coronary artery disease Brother 1 Kj Alcohol abuse Brother 2 Simon Anxiety disorder Brother 2 Simon Dementia Brother 2 Simon Depression Brother 2 Simon Drug abuse Brother 2 Simon Alcohol abuse Brother 3 Christiano Alcohol abuse Father Ermin Hyperlipidemia Father Ermin Hypertension Father Ermin Lung cancer Father Ermin Coronary artery disease Maternal Grandmother Malu Coronary artery disease Mother Trina Relation Name Status Comments Brother 1 Kj Brother 2 Simon Brother 3 Christiano Father Ermin Maternal Grandmother Malu Mother Trina Social History Tobacco Use Types Packs/Day Years Used Date Smoking Tobacco: Former Cigarettes 0 11/16/1977 - 05/31/2002 Passive Smoke Exposure: Past Smokeless Tobacco: Never Comments:I have not smoked f or 22 years Alcohol Use Standard Drinks/Week Comments Yes 10 (1 standard drink = 0.6 oz pu re alcohol) [facility] Utilities Answer Date Recorded In the past 12 months has [facility] [employer], gas, oil, or water [employer] threatened to shut off services in your [...] living situation today? I have a [facility] place to live 11/22/2023 Sex and Gender Information Value Date Recorded Sex Assigned at Male 11/21/2023 10:59 AM ELECTRICAL INSTRUMENT TECHNICIAN Gender Identity Male 11/21/2023 10:59 AM ELECTRICAL INSTRUMENT TECHNICIAN Sexual Orientation Straight 11/21/2023 10 :59 AM ELECTRICAL INSTRUMENT TECHNICIAN Last Filed Vital Signs Vital Sign Reading Time Taken Comments Blood Pressure 97/60 11/26/2023 3:02 PM ELECTRICAL INSTRUMENT TECHNICIAN Pulse 62 11/26/2023 3:02 PM ELECTRICAL INSTRUMENT TECHNICIAN Temperature - - Respiratory Rate - - Oxygen Saturation - - Inhaled Oxygen Concentration - - Weight 95.6 kg (210 lb 12.2 oz) 11/26/2023 3:02 PM ELECTRICAL INSTRUMENT TECHNICIAN Height 182.5 cm (5' 11.85) 11/26/2023 3:02 PM [facility] Body Mass Index 28.7 11/26/2023 3:02 PM ELECTRICAL INSTRUMENT TECHNICIAN Plan of Treatment Health Maintenance Due Date Last Done Comments Abdominal Aortic Aneurysm (A AA) Screen 1955 CT Colonography 1955 Cologuard 1955 Colonoscopy 1955 Colorectal Cancer Screening 1955 FIT 1955 Hepatitis C Screening 1955 COVID-19 Vaccine (5 - 2022-2 4 season) 2023 07/18/2022, 10/01/2021, 01/07/2021, Additional history exists Fall Risk Screen (Annual) 10/29/2023 Creatinine Level (Kidney Fun ction Test) 11/26/2024 11/26/2023, 05/15/2023, 03/31/2022 Potassium Level 11/26/2024 11/26/2023, 04/28, 03/31/2022 Sodium Level 11/26/2024 11/26/2023, 04/28, 03/31/2022 Fasting Glucose for Diabetes Screening 11/26/2026 11/26/2023, 05/15/2023, 03/31/2022 DTaP,Tdap,and Td Vaccines (4 - Td or Tdap) 10/31/2029 10/31/2019, 12/10/2009, 12/05/1988 Zoster Vaccines Completed 08/04/2022, 02/28, 04/26/2016 Pneumococcal vaccine (65+ years) Completed 04/20/20, 04/22/2021 Influenza Vaccine Completed 08/21/2023, , 10/19/2021, Additional history exists Procedures Procedure Name Priority Date/Time Associated Diagnosis Comments PET CT BRAIN METABOLIC EVALUATION RAD - Routine (most inpatients and all outpatients) 11/27/2023 2:45 PM ELECTRICAL INSTRUMENT TECHNICIAN Unspecified Dementia Unspecified Severity Without Behavioral Disturbance 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) CELL COUNT AND DIFFERENTIAL, CSF Routine 11/27/2023 9:23 AM ELECTRICAL INSTRUMENT TECHNICIAN Unspecified Dementia Unspecified Severity Without Behavioral Disturbance 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) PROTEIN, TOTAL, CSF Routine 11/27/2023 9 :23 AM ELECTRICAL INSTRUMENT TECHNICIAN Unspecified Dementia Unspecified Severity Without Behavioral Disturbance 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) GLUCOSE, CSF Routine 11/27/2023 9:23 AM ELECTRICAL INSTRUMENT TECHNICIAN Unspecified Dementia Unspecified Severity Without Behavioral Disturbance 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) ALZHEIMER'S DISEASE EVALUATION, CSF Routine 11/27/2023 9:23 AM ELECTRICAL INSTRUMENT TECHNICIAN Unspecified Dementia Unspecified Severity Without Behavioral Disturbance 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) KAPPA FREE LIGHT CHAIN, CSF Routine 11/27/2023 9:23 AM ELECTRICAL INSTRUMENT TECHNICIAN Unspecified Dementia Unspecified Severity Without Behavioral Disturbance 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) NC PUNCTURE SPINAL LUMBAR DX Routine 11/27/2023 8:30 AM ELECTRICAL INSTRUMENT TECHNICIAN Unspecified Dementia Unspecified Severity Without Behavioral Disturbance 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) ECG Routine 11/26/2023 1:08 PM ELECTRICAL INSTRUMENT TECHNICIAN Unspecified Dementia Unspecified Severity Without Behavioral Disturbance 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) NC ORGANIC ACID 1 QUANT 2 Routine 11/26/2023 11:30 AM ELECTRICAL INSTRUMENT TECHNICIAN ADDITIONAL SAMPLE FOR REFLEX OLIGS Routine 11/26/2023 11:30 AM ELECTRICAL INSTRUMENT TECHNICIAN Unspecified Dementia Unspecified Severity Without Behavioral Disturbance 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) APOLIPOPROTEIN E GENOTYPING, B Routine 11/26/2023 11:30 AM ELECTRICAL INSTRUMENT TECHNICIAN Unspecified Dementia Unspecified Severity Without Behavioral Disturbance 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) PERNICIOUS ANEMIA CASCADE, S Routine 11/26/2023 11:30 AM ELECTRICAL INSTRUMENT TECHNICIAN Unspecified Dementia Unspecified Severity Without Behavioral Disturbance 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) THYROID FUNCTION CASCADE, S Routine 11/26/2023 11:30 AM ELECTRICAL INSTRUMENT TECHNICIAN Unspecified Dementia Unspecified Severity Without Behavioral Disturbance 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) COMPREHENSIVE METABOLIC PANEL, S/P Routine 11/26/2023 11:30 AM ELECTRICAL INSTRUMENT TECHNICIAN Unspecified Dementia Unspecified Severity Without Behavioral Disturbance 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) ACTIVATED PARTIAL THROMBOPLASTIN TIME (APTT), P Routine 11/26/2023 11:30 AM ELECTRICAL INSTRUMENT TECHNICIAN Unspecified Dementia Unspecified Severity Without Behavioral Disturbance 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) PROTHROMBIN TIME (PT), P Routine 11/26/2023 11:30 AM ELECTRICAL INSTRUMENT TECHNICIAN Unspecified Dementia Unspecified Severity Without Behavioral Disturbance 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) CBC WITH DIFFERENTIAL, B Routine 11/26/2023 11:30 AM ELECTRICAL INSTRUMENT TECHNICIAN Unspecified Dementia Unspecified Severity Without Behavioral Disturbance 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) MR BRAIN DEMENTIA WITHOUT IV CONTRAST RAD - Routine (most inpatients and all outpatients) 11/26/2023 7:23 AM ELECTRICAL INSTRUMENT TECHNICIAN Unspecified Dementia Unspecified Severity Without Behavioral Disturbance 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) from Last 3 Months Results * PET CT Brain Metabolic Evaluation (11/27/2023 2:45 PM ELECTRICAL INSTRUMENT TECHNICIAN) Anatomical Region Laterality Modality Brain, Nuclear Medicine PET RST LOS, PET ARZ LOS, Nuclear Medicine PET FLA LOS, Nuclear Medicine N/A Positron Emission Tomography (PET), Positron Emission Tomography (PET) 11/27/2023 2:44 PM ELECTRICAL INSTRUMENT TECHNICIAN Impressions 11/27/2023 2:55 PM ELECTRICAL INSTRUMENT TECHNICIAN No pattern of cerebral glucose hypometabolism to suggest a specific neurodegenerative disorder with tracer distribution within normal limits for age. Narrative 11/27/2023 2:55 PM ELECTRICAL INSTRUMENT TECHNICIAN EXAM: ??PET CT BRAIN METABOLIC EVALUATION Serum [...] normal limitsfor age. Anselmo Barrios M.D., Ph.D. [facility] PROCEDUR ES * Immunoglobulin Lastrup Free Light Chain, CSF (automatically paired with serum) (11/27/2023 9:23 AM ELECTRICAL INSTRUMENT TECHNICIAN) Lastrup Free Light Chain, CSF 0.0565 <0.1000 mg/dL 11/28/2023 8:32 AM ELECTRICAL INSTRUMENT TECHNICIAN [facility] Comment: Negative. The kappa free light concentration measured in CSF is lower than the threshold associated with multiple sclerosis. Clinical correlation recommended. ----ADDITIONAL INFORMATION---- This test has been modified from the debt management counselor's instructions. Its performance characteristics were determined by [facility] in a manner consistent with CLIA requirements. This test has not been cleared or approved by the U.S. Food and Drug Administration. A [facility] study published in 2018 with 325 patients ?? suggested that a kappa free light chain concentration in CSF greater than or equal to 0.06 mg/dL has 92% clinical sensitivity in the diagnosis of multiple sclerosis (ref 1). A second, larger [facility] study with 1355 patients published in [...] 2.Sina AGUILLON, Chu FLORES, Uri Dallas, Steven Scott, Ian CRUZ, Rocky GARCIA, et al. CSF Lastrup Free Light ?? Chains: Cutoff Validation for Diagnosing Multiple Sclerosis. [facility] Clin Proc. 2020; [id number])52610-2. doi: 10.1016/j.mayocp.2020.09.014. Cerebrospinal Fluid (Cerebrospinal Fluid) 11/27/2023 9:23 AM ELECTRICAL INSTRUMENT TECHNICIAN 11/28/2023 6:46 AM ELECTRICAL INSTRUMENT TECHNICIAN Anselmo Barrios M.D., Ph.D. LAB BODY FLUIDS AND STOOLS ORDERABLES [facility] [address] [place] [address] [facility] [address] [place] [address] * (ABNORMAL) Alzheimer???s Disease Evaluation, CSF (11/27/2023 9:23 AM ELECTRICAL INSTRUMENT TECHNICIAN) p-Tau/Abeta42 0.063(H) <=0.028 ratio 11/27/2023 2:13 PM [facility] AD Interpretation SEE COMMENT 11/27/2023 2:13 PM [facility] Comment: The elevated p-Tau/Abeta42 ratio may be [...] the p-Tau/Abeta42 ratio. The p-Tau assay measures [id number]-[id number] (Tau phosphorylated at threonine 181). ----ADDITIONAL INFORMATION---- The testing method is an electrochemiluminescence assay manufactured by [employer] Effective March 28, 2023, a formulation change was implemented in the [employer] Abeta42 and p-[id number] reagent (Generation I to Generation II). Internal [...] Abeta42 934 >834 pg/mL 11/27/2023 2:13 PM [facility] Comment: ----ADDITIONAL INFORMATION---- The testing method is an electrochemiluminescence assay manufactured by [employer] Effective March 28, 2023, a formulation change was implemented in the [employer] Abeta42 reagent (Generation I to Generation II). The [employer] B-Amyloid (1-42) CSF II assay was restandardized using certified reference materials (CRMs) ERM-[id number]/-481/-482/[facility]. Internal studies indicate a reduction in [...] Total-Tau 490(H) <=238 pg/mL 11/27/2023 2:13 PM [facility] Comment: ----ADDITIONAL INFORMATION---- The testing method is an electrochemiluminescence assay manufactured by [employer] Values obtained with different assay methods or kits may be different and cannot be used interchangeably. This test was developed and its performance characteristics determined by [facility] in a manner consistent with CLIA requirements. This test has not been cleared or approved by the U.S. Food and Drug Administration. Phospho-Tau(181P) 58.6(H) <=21.6 pg/mL 11/27/2023 2:13 PM [facility] Comment: ----ADDITIONAL INFORMATION---- The testing method is an electrochemiluminescence assay manufactured by [employer] Effective March 28, 2023, a formulation change was implemented in the [employer] p-[id number] reagent (Generation I to Generation II). Internal studies indicate a slight reduction in measured p-Dam041 concentrations under specified assay collection conditions when using the new reagent formulation. Accordingly, the reference value has been modified from < or = 21.7 pg/mL (Gen I) to < or = 21.6 (Gen II). Values obtained with different assay methods or kits may be different and cannot be used interchangeably. Cerebrospinal Fluid (Cerebrospinal Fluid) 11/27/2023 9:23 AM ELECTRICAL INSTRUMENT TECHNICIAN 11/27/2023 1:22 PM ELECTRICAL INSTRUMENT TECHNICIAN Anselmo Barrios M.D., Ph.D. LAB BODY FLUIDS AND STOOLS ORDERABLES [facility] [address] [place] [address] [facility] [address] [place] [address] * Cell Count and Differential, CSF (11/27/2023 9:23 AM ELECTRICAL INSTRUMENT TECHNICIAN) Fluid Type CSF 11/27/2023 10:21 AM ELECTRICAL INSTRUMENT TECHNICIAN DH CSF Gross Appearance Clear 11/27/2023 10:21 AM ELECTRICAL INSTRUMENT TECHNICIAN DHPM Total Nucleated Cells 4 0 - 5 /mcL 11/27/2023 10:21 AM ELECTRICAL INSTRUMENT TECHNICIAN DH[facility] Comment: ----ADDITIONAL INFORMATION---- This test has been modified from the debt management counselor's instructions. Its performance characteristics were determined by [facility] in a manner consistent with CLIA requirements. This test has not been cleared or approved by the U.S. Food and Drug Administration. Erythrocytes 0 /mcL 11/27/2023 10:21 AM ELECTRICAL INSTRUMENT TECHNICIAN PM Comment: ----REFERENCE VALUE---- The reference range and other method performance specifications have not been established for this body fluid. The test result must be integrated into the clinical context for interpretation. Lymphocytes 66 % 11/27/2023 11:04 AM ELECTRICAL INSTRUMENT TECHNICIAN PM Comment: ----REFERENCE VALUE---- Adult: (60% +/- 20%) Neonates: (20% +/- 15%) Monocytes/Macrophag es 34 % 11/27/2023 11:04 AM ELECTRICAL INSTRUMENT TECHNICIAN DHPM Comment: ----REFERENCE VALUE---- Adult: (30% +/- 15%) Neonates: (70% +/- 20%) Diff Comments See Comment 11/27/2023 11:04 AM ELECTRICAL INSTRUMENT TECHNICIAN PM Comment:No abnormal cells se en. 76 cells counted. Comment See Comment 11/27/2023 11:04 AM ELECTRICAL INSTRUMENT TECHNICIAN PM Comment:No blasts or maligna nt cells seen. Reviewed by: Pelon 11/27/2023 11:04 AM ELECTRICAL INSTRUMENT TECHNICIAN [facility] Fluid (Cerebrospinal Fluid) 11/27/2023 9:23 AM ELECTRICAL INSTRUMENT TECHNICIAN 11/27/2023 9:52 AM ELECTRICAL INSTRUMENT TECHNICIAN Anselmo Brarios M.D., Ph.D. LAB BODY FLUIDS AND STOOLS ORDERABLES [facility] [address] [place] [address], [facility] [address] [place] [address] * (ABNORMAL) Protein, Total, CSF (11/27/2023 9:23 AM ELECTRICAL INSTRUMENT TECHNICIAN) Protein, Total, CSF 53(H) 0 - 35 mg/dL 11/27/2023 10:21 AM ELECTRICAL INSTRUMENT TECHNICIAN DT Cerebrospinal Fluid (Cerebrospinal Fluid) 11/27/2023 9:23 AM ELECTRICAL INSTRUMENT TECHNICIAN 11/27/2023 9:38 AM ELECTRICAL INSTRUMENT TECHNICIAN Anselmo Barrios M.D., Ph.D. LAB BODY FLUIDS AND STOOLS ORDERABLES Performing Organization Address [facility] Co de Phone Number [facility] [address] [place], [place] [id number] [place] [address] 200 [place] [address] * Glucose, CSF (11/27/2023 9:23 AM ELECTRICAL INSTRUMENT TECHNICIAN) Glucose, CSF 54 mg/dL 11/27/2023 10:21 AM ELECTRICAL INSTRUMENT TECHNICIAN DT Comment: ----REFERENCE VALUE---- CSF glucose concentration should be approximately 60% of the plasma /serum concentration and should be compared with concurrently measured plasma /serum glucose for adequate clinical interpretation. Cerebrospinal Fluid (Cerebrospinal Fluid) 11/27/2023 9:23 AM ELECTRICAL INSTRUMENT TECHNICIAN 11/27/2023 9:38 AM ELECTRICAL INSTRUMENT TECHNICIAN Anselmo Barrios M.D., Ph.D. LAB BODY FLUIDS AND STOOLS ORDERABLES Performing Organization Address City/[facility]/ZIP Co de Phone Number [facility] [address] [place], [place] [id number] [place] [address] 200 [place] [address] * [place] PUNCTURE SPINAL LUMBAR DX (11/27/2023 8:30 AM ELECTRICAL INSTRUMENT TECHNICIAN) Narrative MMODAL - 11/27/2023 8:30 AM ELECTRICAL INSTRUMENT TECHNICIAN Tana Stanford R.N. ? 11/27/2023 10:08 AM [...] clear Total volume (mL): 7.5 (1 ml Lastrup and 2.5 ml ROMERO both on wet [...] Band-aid was clean, dry, and intact. Tana Stanford RN Anselmo Barrios M.D., Ph.D. NEUROLOGY ORDER MOSES Performing Organization Address [facility] Co de Phone Number MMODAL NA * ECG 12 Lead (11/26/2023 1:08 PM ELECTRICAL INSTRUMENT TECHNICIAN) Ventricular Rate ECG/Min 67 BPM MUSE NC Interval 212 ms MUSE QRSD Interval 108 ms MUSE QT Interval 436 ms MUSE QTC Interval 460 ms MUSE P [place] 54 degrees MUSE R [place] 6 degrees MUSE T Wave [place] 49 degrees MUSE 11/26/2023 1:08 PM ELECTRICAL INSTRUMENT TECHNICIAN 11/26/2023 1:30 PM ELECTRICAL INSTRUMENT TECHNICIAN Impressions MUSE - 11/26/2023 1:30 PM ELECTRICAL INSTRUMENT TECHNICIAN Sinus rhythm with 1st degree A-V block Moderate voltage criteria for LVH, may be normal variant ( R in aVL , Omega product ) Nonspecific ST abnormality No previous [...] M.D., Ph.D. ECG ORDERABLES Performing Organization Address [facility] de Phone Number MUSE NA * Additional Sample for Reflex Oligoclonal Banding (11/26/2023 11:30 AM ELECTRICAL INSTRUMENT TECHNICIAN) Pathologist [facility] Additional sample for reflex OLIGS Collected DEFAULT 11/27/2023 6:29 AM ELECTRICAL INSTRUMENT TECHNICIAN [facility] Blood (Blood, Venous) 11/26/2023 11:30 AM ELECTRICAL INSTRUMENT TECHNICIAN 11/27/2023 6:29 AM ELECTRICAL INSTRUMENT TECHNICIAN Anselmo Barrios M.D., Ph.D. LAB BLOOD NON A DD-ON Performing Organization Address City/[facility] Co de Phone Number [facility] [address] [place] [address] [facility] [address] [place] [address] * Methylmalonic Acid (MMA), Quantitative, Serum (11/26/2023 11:30 AM ELECTRICAL INSTRUMENT TECHNICIAN) Methylmalonic Acid, QN, S 0.14 <=0.40 nmol/mL 11/28/2023 1:26 PM ELECTRICAL INSTRUMENT TECHNICIAN [facility] Comment: No cellular B-12 deficiency. ----ADDITIONAL INFORMATION---- This test was developed and its performance characteristics determined by [facility] in a manner consistent with CLIA requirements. This test has not been cleared or approved by the U.S. Food and Drug Administration. Blood 11/26/2023 11:3 0 AM ELECTRICAL INSTRUMENT TECHNICIAN 11/26/2023 4:54 PM ELECTRICAL INSTRUMENT TECHNICIAN Anselmo Barrios M.D., Ph.D. LAB BLOOD NON A DD-ON Performing Organization Address [facility]/[place] [address] * Thyroid Function [place] (11/26/2023 11:30 AM ELECTRICAL INSTRUMENT TECHNICIAN) Pathologist [facility] TSH, Sensitive 2.2 0.3 - 4.2 mIU/L 11/26/2023 12:31 PM ELECTRICAL INSTRUMENT TECHNICIAN [facility] Blood (Blood, Venous) 11/26/2023 11:30 AM ELECTRICAL INSTRUMENT TECHNICIAN 11/26/2023 11:52 AM ELECTRICAL INSTRUMENT TECHNICIAN Anselmo Barrios M.D., Ph.D. LAB BLOOD ADD-O N Performing Organization Address City/[facility]/ZIP Co de Phone Number [facility] [address] [place] [address], [place] [address] * Pernicious Anemia [place] (11/26/2023 11:30 AM ELECTRICAL INSTRUMENT TECHNICIAN) Pathologist [facility] Vitamin B12 Assay, S 390 180 - 914 ng/L 11/26/2023 4:54 PM ELECTRICAL INSTRUMENT TECHNICIAN [facility] Comment:B-12 <400; MMA test was performed. Blood (Blood, Venous) 11/26/2023 11:30 AM ELECTRICAL INSTRUMENT TECHNICIAN 11/26/2023 3:07 PM ELECTRICAL INSTRUMENT TECHNICIAN Anslemo Barrios M.D., Ph.D. LAB BLOOD NON A DD-ON [facility] [address] [place] [address] [facility] [address] [place] [address] * Apolipoprotein E Genotyping (11/26/2023 11:30 AM ELECTRICAL INSTRUMENT TECHNICIAN) Result Summary COMPLEX (SEE RESULT AND INTERPRETATION) 11/28/2023 10:26 AM ELECTRICAL INSTRUMENT TECHNICIAN DTL Result Genotype: e3/e4 10:26 AM ELECTRICAL INSTRUMENT TECHNICIAN DTL Reason for Referral Test for the presence of the e2, e3, and e4 alleles in the APOE gene. 11/28/2023 10:26 AM ELECTRICAL INSTRUMENT TECHNICIAN DTL Specimen WB Whole Blood 11/28/2023 10:26 AM ELECTRICAL INSTRUMENT TECHNICIAN DTL Released By Sd Erazo, Ph.D. 11/28/19 10:26 AM ELECTRICAL INSTRUMENT TECHNICIAN DTL Interpretation The e4 allele leads to [...] disease is not currently recommended by the [employer] due to limited clinical utility and poor predictive value (3, 4). Less common APOE variants that do not alter a restriction site for HhaI will not be detected by this assay. REFERENCES 1. Anai Int Med. 2004, 141:137-47 (PMID [id number]) 2. KITTY 1997; 278:7023-1770 (PMID [id number]) 3. Janine Med 2011; 13:597-605 (PMID [id number]) 4. [employer] 2014May 07. Retrieved from www.choosingwise ly.org/societies /gambian-colleg h-sd-kfocrdm -kgtcerjn-ujx-mw nomics/) 11/28/2023 10:26 AM ELECTRICAL INSTRUMENT TECHNICIAN DTL Comment: ----ADDITIONAL INFORMATION---- A PCR-based assay, including Hyster Machine Operator I digestion of the amplified product, was utilized to identify the three common APOE alleles (epsilon2, epsilon3, and epsilon4). An online research opportunity called Million-2-1 ([employer]), a project of [employer], is available for the recipient of this genetic test. This patient registry collects de-identified genetic and health information to advance the knowledge of genetic variants. [facility] is a collaborator of [employer]. This may not be applicable for all [...] will interfere with testing. Call [facility] for instructions for testing patients [...] its performance characteristics determined by [facility] in a manner consistent with CLIA requirements. This test has not been cleared or approved by the U.S. Food and Drug Administration. Blood (Blood, Venous) 11/26/2023 11:30 AM ELECTRICAL INSTRUMENT TECHNICIAN 11/26/2023 11:56 AM ELECTRICAL INSTRUMENT TECHNICIAN Anselmo Barrios M.D., Ph.D. LAB GENETIC OSMAN REDDY Performing Organization Address City/[facility]/ZIP Co de Phone Number [facility] [address] [place] [address], [facility] DT 200 [facility] 200 [place] [address] * APTT (Activated Partial Thromboplastin Time) (11/26/2023 11:30 AM ELECTRICAL INSTRUMENT TECHNICIAN) Activated Partial Thrombopl Time, P 28 25 - 37 sec 11/26/2023 12:05 PM ELECTRICAL INSTRUMENT TECHNICIAN DTL Blood (Blood, Venous) 11/26/2023 11:30 AM ELECTRICAL INSTRUMENT TECHNICIAN 11/26/2023 11:42 AM ELECTRICAL INSTRUMENT TECHNICIAN Anselmo Barrios M.D., Ph.D. LAB BLOOD ADD-O N Performing Organization Address [facility] Co de Phone Number [facility] [address] [place], [place] [id number] [place] [address] 200 [place] [address] * Prothrombin Time (PT) (11/26/2023 11:30 AM ELECTRICAL INSTRUMENT TECHNICIAN) Prothrombin Time, P 11.2 9.4 - 12.5 sec 11/26/2023 12:05 PM ELECTRICAL INSTRUMENT TECHNICIAN DTL INR 1.0 0.9 - 1.1 11/26/2023 12:05 PM ELECTRICAL INSTRUMENT TECHNICIAN DTL Comment: ----ADDITIONAL INFORMATION---- Standard intensity warfarin therapeutic range: 2.0 to 3.0 ?? High intensity warfarin therapeutic range: 2.5 to 3.5 Blood (Blood, Venous) 11/26/2023 11:30 AM ELECTRICAL INSTRUMENT TECHNICIAN 11/26/2023 11:42 AM ELECTRICAL INSTRUMENT TECHNICIAN Anselmo Barrios M.D., Ph.D. LAB BLOOD ADD-O N Performing Organization Address City/[facility]/ZIP Co de Phone Number [facility] [address] DTL [facility] [address] [place] [address] * CBC with Differential, Blood (11/26/2023 11:30 AM ELECTRICAL INSTRUMENT TECHNICIAN) Hemoglobin 14.7 13.2 - 16.6 g/dL 11/26/2023 11:49 AM ELECTRICAL INSTRUMENT TECHNICIAN DTL Hematocrit 43.3 38.3 - 48.6 % 11/26/2023 11:49 AM ELECTRICAL INSTRUMENT TECHNICIAN DTL Erythrocytes 4.71 4.35 - 5.65 x10(12)/L 11/26/2023 11:49 AM ELECTRICAL INSTRUMENT TECHNICIAN DTL MCV 91.9 78.2 - 97.9 fL 11/26/2023 11:49 AM ELECTRICAL INSTRUMENT TECHNICIAN DTL RBC Distrib Width 12.0 11.8 - 14.5 % 11/26/2023 11:49 AM ELECTRICAL INSTRUMENT TECHNICIAN DTL Platelet Count 209 135 - 317 x10(9)/L 11/26/2023 11:49 AM ELECTRICAL INSTRUMENT TECHNICIAN DTL Leukocytes 6.7 3.4 - 9.6 x10(9)/L 11/26/2023 11:49 AM ELECTRICAL INSTRUMENT TECHNICIAN DTL Neutrophils 4.09 1.56 - 6.45 x10(9)/L 11/26/2023 11:49 AM ELECTRICAL INSTRUMENT TECHNICIAN [facility] Lymphocytes 1.89 0.95 - 3.07 x10(9)/L 11/26/2023 11:49 AM ELECTRICAL INSTRUMENT TECHNICIAN DTL Monocytes 0.49 0.26 - 0.81 x10(9)/L 11/26/2023 11:49 AM ELECTRICAL INSTRUMENT TECHNICIAN DTL Eosinophils 0.16 0.03 - 0.48 x10(9)/L 11/26/2023 11:49 AM ELECTRICAL INSTRUMENT TECHNICIAN DTL Basophils 0.05 0.01 - 0.08 x10(9)/L 11/26/2023 11:49 AM ELECTRICAL INSTRUMENT TECHNICIAN DTL Blood (Blood, Venous) 11/26/2023 11:30 AM ELECTRICAL INSTRUMENT TECHNICIAN 11/26/2023 11:42 AM ELECTRICAL INSTRUMENT TECHNICIAN Anselmo Barrios M.D., Ph.D. LAB BLOOD ADD-O N [facility] [address] [place] [address], [facility] DTL [facility] [address] [place] [address] [facility] [address] [place] [address] * Comprehensive Metabolic Panel (11/26/2023 11:30 AM ELECTRICAL INSTRUMENT TECHNICIAN) [facility] Potassium, S 4.3 3.6 - 5.2 mmol/L 11/26/2023 12:31 PM ELECTRICAL INSTRUMENT TECHNICIAN DTL Sodium, S 140 135 - 145 mmol/L 11/26/2023 12:31 PM ELECTRICAL INSTRUMENT TECHNICIAN DTL Chloride, S 105 98 - 107 mmol/L 11/26/2023 12:31 PM ELECTRICAL INSTRUMENT TECHNICIAN DTL Bicarbonate, S 27 22 - 29 mmol/L 11/26/2023 12:31 PM ELECTRICAL INSTRUMENT TECHNICIAN DTL Anion Gap 8 7 - 15 11/26/2023 12:31 PM ELECTRICAL INSTRUMENT TECHNICIAN DTL BUN (Blood Urea Nitrogen), S 13 8 - 24 mg/dL 11/26/2023 12:31 PM ELECTRICAL INSTRUMENT TECHNICIAN DTL Creatinine 0.99 0.74 - 1.35 mg/dL 11/26/2023 12:31 PM ELECTRICAL INSTRUMENT TECHNICIAN DTL Estimated GFR (eGFR) 83 >=60 mL/min/BS A 11/26/2023 12:31 PM ELECTRICAL INSTRUMENT TECHNICIAN DTL Comment: Estimated GFR calculated using the 2020 CKD_EPI creatinine equation. Calcium, Total, S 9.3 8.8 - 10.2 mg/dL 11/26/2023 12:31 PM ELECTRICAL INSTRUMENT TECHNICIAN DTL Glucose, S 98 70 - 140 mg/dL 11/26/2023 12:31 PM ELECTRICAL INSTRUMENT TECHNICIAN DTL Protein, Total, S 7.3 6.3 - 7.9 g/dL 11/26/2023 12:31 PM ELECTRICAL INSTRUMENT TECHNICIAN DTL Albumin, S 4.3 3.5 - 5.0 g/dL 11/26/2023 12:31 PM ELECTRICAL INSTRUMENT TECHNICIAN DTL Aspartate Aminotransferase (AST), S 28 8 - 48 U/L 11/26/2023 12:31 PM ELECTRICAL INSTRUMENT TECHNICIAN DTL Alkaline Phosphatase, S 119 40 - 129 U/L 11/26/2023 12:31 PM ELECTRICAL INSTRUMENT TECHNICIAN DTL Alanine Aminotransferase (ALT), S 32 7 - 55 U/L 11/26/2023 12:31 PM ELECTRICAL INSTRUMENT TECHNICIAN DTL Bilirubin, Total, S 1.2 0.0 - 1.2 mg/dL 11/26/2023 12:31 PM ELECTRICAL INSTRUMENT TECHNICIAN DTL Blood (Blood, Venous) 11/26/2023 11:30 AM ELECTRICAL INSTRUMENT TECHNICIAN 11/26/2023 11:52 AM ELECTRICAL INSTRUMENT TECHNICIAN Anselmo Barrios M.D., Ph.D. LAB BLOOD ADD-O N [facility] [address] [place] [address], [facility] DTL [facility] [address] [place] [address] * MR Brain Dementia without IV Contrast (11/26/2023 7:23 AM ELECTRICAL INSTRUMENT TECHNICIAN) Anatomical Region Laterality Modality Head, Brain, Neuroradiology RST LOS, Neuroradiology ARZ LOS N/A Magnetic Resonance Impressions 11/26/2023 8:00 AM ELECTRICAL INSTRUMENT TECHNICIAN 1. ??Total microhemorrhages: None 2. ??Superficial siderosis is not detected. 3. 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 Narrative 11/26/2023 8:00 AM ELECTRICAL INSTRUMENT TECHNICIAN EXAM: MR BRAIN DEMENTIA WITHOUT IV CONTRAST [...] assessment was performed on an independent computer server engineer using NeuroQuant software. The clinical indication for performing the post-processing was dementia. ??Review of the quality assurance project manager images demonstrates suboptimal segmentation of the hippocampi. [...] andassessment was performed on an independent computer server engineer usingIdentyx software. The clinical indication for performing thepost-processing was dementia. Review of the quality assurance project manager images demonstrates suboptimal segmentation of the hippocampi.The [...] lacunarinfarct in the right caudate head. Anselmo Barriso M.D., Ph.D. IMG MRI PROCEDU RES from Last 3 Months Care Teams Housing And Residence Life Director Relationship Specialty Start Date End Date Elsewhere, Pcp PCP - General Internal Medicine 11/22/23
--- OUTSIDE RECORDS SUMMARY | 2023-12-10 14:05 | XMS_ITS | Encounter Summary ---
Author Name Unknown Organization [facility] Address [address] [place] [address] Care Team Providers Care Plate Maker Name Role Phone Elsewhere, Pcp Primary Care Provider Unavailabl e Encounter Details Date Type Department Care Team (Late st Contact Info) Description 11/30/2023 Orders Only Department of Neurology in [place], [place] [address] [place] [phone] Kiel Gomes M.D., Ph.D. 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 Never true 01/25/20 24 Within the past 12 months, t he [...] your living situation today? I have a [facility] place to live 11/22/2023 Sex and Gender Information Value Date Recorded Sex Assigned at Male 11/21/2023 10:59 AM FOREST MANAGER Gender Identity Male 11/21/2023 10:59 AM FOREST MANAGER Sexual Orientation Straight 11/21/2023 10 :59 AM FOREST MANAGER documented as of this encounter Plan of Treatment Not on file documented as of this encounter Visit Diagnoses Diagnosis Unspecified Dementia Unspecified Severity Without Behavioral Disturbance 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)- Primary documented in this encounter Care Teams Plate Maker Relationship Specialty Start Date End Date Elsewhere, Pcp PCP - General Internal Medicine 11/22/23 documented as of this encounter
--- OUTSIDE RECORDS SUMMARY | 2023-12-10 14:05 | XMS_ITS | Clinical Summary ---
Author Name Unknown Organization [place] Address [address] [place] [address] Care Team Providers Care Fixed Income Manager Name Role Phone Jamarcus Cordero NP Primary Care Provider [phone] Allergies No known active allergies Medications Medication [...] 05/15/2023 3:19 PM CDT Plan of Treatment Health Maintenance Due Date Last Done Comments ADVANCE CARE PLANNING 1955 ANNUAL REVIEW OF HM ORDERS 1955 CT COLONOGRAPHY 1955 FIT 1955 FLEX SIG 1955 sDNA (Cologuard) 1955 COLONOSCOPY 1965 COLORECTAL CANCER SCREENING 1965 HEPATITIS C SCREENING 1973 LIPID 1995 LUNG CANCER SCREENING 2005 RSV VACCINE ( & 60+) (1 - 1-dose 60+ series) 2015 FALL RISK ASSESSMENT 2020 MEDICARE ANNUAL WELLNESS VISIT 02/21/2023 02/21/2022, 04/22/2021, 10/31/2019, Additional history exists COVID-19 Vaccine ( season) 2023 07/18/2022, 10/01/2021, 01/07/2021, Additional history exists INFLUENZA VACCINE (#1) 2023 , 10/19/2021, 10/19/2021, Additional history exists PHQ-2 (once per calendar year) 2023 GLUCOSE 05/15/2026 05/15/2023, 06/12/2021, 11/06/2013, Additional history exists DTAP/TDAP/TD IMMUNIZATION (4 - Td or Tdap) 10/31/2029 10/31/2019, 10/31/2019, 12/10/2009 ZOSTER IMMUNIZATION Completed 08/04/2022, 03/28/2022, 04/26/2016 Pneumococcal Vaccine: 65+ Years Completed 04/20/2023, 04/22/2021 HPV IMMUNIZATION Aged Out No longer e ligible based on patient's age to complete this topic IPV IMMUNIZATION Aged Out No longer e ligible based on patient's age to complete this topic MENINGITIS IMMUNIZATION Aged Out No l onger eligible based on patient's age to complete this topic RSV MONOCLONAL ANTIBODY Aged Out No l onger eligible based on patient's age to complete this topic Care Teams Fixed Income Manager Relationship Specialty Start [place] [id number] [place] [phone] PCP - General Nurse Practitioner 03/31/22
--- OUTSIDE RECORDS SUMMARY | 2023-12-10 14:05 | XMS_ITS ---
Author Name Unknown Organization [facility] Address [address] [place] [address] Care Team Providers Care Daycare Provider Name Role Phone Unavailable Unavailable Unavailable Surgery Details Not on file Complications Check Surgery Details section. Procedure Estimated Blood Loss Check Surgery Details section. Procedure Findings Check Surgery Details section. Procedure Specimens Taken Check Surgery Details section.
--- OUTSIDE RECORDS SUMMARY | 2023-12-10 14:06 | XMS_ITS | Encounter Summary ---
Author Name Unknown Organization [facility] Address [address] [place] [address] Care Team Providers Care Rack Loader Name Role Phone Elsewhere, Pcp Primary Care Provider Unavailabl e Reason for Referral * Outpatient (Routine) - Closed Specialty Diagnoses / Procedures Referred By Arlen zamorano Referred To Contact Diagnoses Unspecified Dementia Unspecified Severity Without Behavioral Disturbance 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) Procedures PET CT Brain Metabolic Evaluation Anselmo Barrios M.D., Ph.D. [address] [place] [phone] [facility] Referral ID Status Reason Start Date Expiration Date Visits Re quested Visits Authorized [id number] Closed 11/27/2023 12/27/2023 6 1 CTOR OF SLOT OPERATIONS Reason for Visit * Outpatient (Routine) - Closed Specialty Diagnoses / Procedures Referred By Arlen zamorano Referred To Contact Diagnoses Unspecified Dementia Unspecified Severity Without Behavioral Disturbance 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) Procedures PET CT Brain Metabolic Evaluation Anselmo Barrios M.D., Ph.D. [address] [place] [phone] [facility] Referral ID Status Reason Start Date Expiration Date Visits Re quested Visits Authorized [id number] Closed 11/27/2023 12/27/2023 6 1 Encounter Details Date Type Department Care Team (Latest Contact Info) Description 11/27/2023 12:57 PM DIRECTOR OF SLOT OPERATIONS - 11/27/2023 11:59 PM DIRECTOR OF SLOT OPERATIONS Hospital Encounter Department of Radiology, [facility], in [place], [place] 200 [place] [address] Anselmo Barrios M.D., Ph.D. 200 [place] [address] Unspecified Dementia Unspecified Severity Without Behavioral Disturbance 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) Discharge Disposition: Home or Self Care Social History Tobacco Use Types Packs/Day Years Used Date Smoking Tobacco: Former Cigarettes 0 11/16/1977 - 05/31/2002 Passive Smoke Exposure: Past Smokeless Tobacco: Never Comments:I have not smoked f or 22 years Alcohol Use Standard Drinks/Week Comments Yes 10 (1 standard drink = 0.6 oz pu re alcohol) [facility] Utilities Answer Date Recorded In [...] living situation today? I have a [facility] place to live 11/22/2023 Sex and Gender Information Value Date Recorded Sex Assigned at Male 11/21/2023 10:59 AM DIRECTOR OF SLOT OPERATIONS Gender Identity Male 11/21/2023 10:59 AM DIRECTOR OF SLOT OPERATIONS Sexual Orientation Straight 11/21/2023 10 :59 AM DIRECTOR OF SLOT OPERATIONS documented as of this encounter Medications at Time of Discharge Medication Sig Dispensed Refills Start Date End Date ascorbic acid (VITAMIN C ORAL) Take 1,000 mg by mouth daily. 0 ASHWAGANDHA ROOT EXTRACT ORAL 1 gummy daily [address] tablet Take 81 mg by mouth daily. 0 04/24/2016 atorvastatin (LIPITOR) 40 mg tablet Take 1 tablet by mouth daily. 0 10/26/2023 cholecalciferol, vitamin D3, (cholecalciferol) 25 mcg (1,000 Unit) tablet Take 25 mcg by mouth daily. 0 co-enzyme Q-10 (CO Q-10) 100 mg capsule Take 100 mg by mouth daily. 0 docosahexaenoic acid/epa (FISH OIL ORAL) Take 1,000 mg by mouth daily. 0 donepeziL (ARICEPT) 10 mg tablet Take 1 Tablet (10 mg) by mouth daily at bedtime. 0 05/03/2023 05/02/2024 escitalopram (LEXAPRO) 20 mg tablet Take 1 Tablet (20 mg) by mouth daily. 0 05/03/2023 05/02/2024 fluticasone propionate (FLONASE) 50 mcg/actuation nasal spray Administer 2 sprays into each nostril daily as needed. 0 07/31/2023 losartan (COZAAR) 100 mg tablet Take 1 tablet by mouth daily. 0 10/09/2023 MAGNESIUM ORAL Take 200 mg by mouth daily. 0 melatonin 5 mg tablet Take 5 mg by mouth at bedtime. 0 metoprolol succinate (TOPROL-XL) 25 mg 24 hr tablet Take 0.5 tablets by mouth daily. 0 10/26/2023 TURMERIC ORAL Take 1,000 mg by mouth daily. 0 ZINC ORAL Take 50 mg by mouth daily. 0 documented as of this encounter Plan of Treatment Not on file documented as of this encounter Procedures Procedure Name Priority Date/Time Associated Diagnosis Comments PET CT BRAIN METABOLIC EVALUATION RAD - Routine (most inpatients and all outpatients) 11/27/2023 2:45 PM DIRECTOR OF SLOT OPERATIONS Unspecified Dementia Unspecified Severity Without Behavioral Disturbance 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) documented in this encounter Results * PET CT Brain Metabolic Evaluation (11/27/2023 2:45 PM DIRECTOR OF SLOT OPERATIONS) Anatomical Region Laterality Modality Brain, Nuclear Medicine PET RST LOS, PET ARZ LOS, Nuclear Medicine PET FLA LOS, Nuclear Medicine N/A Positron Emission Tomography (PET), Positron Emission Tomography (PET) 11/27/2023 2:44 PM DIRECTOR OF SLOT OPERATIONS Impressions 11/27/2023 2:55 PM DIRECTOR OF SLOT OPERATIONS No pattern of cerebral glucose hypometabolism to suggest a specific neurodegenerative disorder with tracer distribution within normal limits for age. Narrative 11/27/2023 2:55 PM DIRECTOR OF SLOT OPERATIONS EXAM: ??PET CT BRAIN METABOLIC EVALUATION Serum glucose at time of F-18 FDG injection was 87 mg/dL. RADIOPHARMACEUTICAL/MEDS: Route: intravenous fludeoxyglucose F 18 injection LONGTERM (FDG F-18),4.72 millicurie TECHNIQUE: F-18 FDG PET/CT [...] RADIOPHARMACEUTICAL/MEDS: Route: intravenous fludeoxyglucose F 18 injection LONGTERM (FDG F-18),4.72 millicurie TECHNIQUE: F-18 FDG PET/CT [...] normal limitsfor age. Anselmo Barrios M.D., Ph.D. [facility] [place] [facility] WHITE documented in this encounter Visit Diagnoses Diagnosis Unspecified Dementia Unspecified Severity Without Behavioral Disturbance 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) documented in this encounter Administered Medications Inactive Administered Medications - up to 3 most recent administrations Medication Order MAR Action Action Date Dose Rate Site fludeoxyglucose F 18 injection LONGTERM (FDG F-18) 4.5-16.5 millicurie, intravenous, Once, On 11/27/23 at 1415, For 1 dose, Imaging Protocol Orders Given 11/27/2023 1:55 PM DIRECTOR OF SLOT OPERATIONS 4.72 millicuries documented in this encounter Care Teams Rack Loader Relationship Specialty Start Date End Date Elsewhere, Pcp PCP - General Internal Medicine 11/22/23 documented as of this encounter
--- OUTSIDE RECORDS SUMMARY | 2023-12-10 14:06 | XMS_ITS | Encounter Summary ---
Author Name Unknown Organization [facility] Address [address] [place] [address] Care Team Providers Care Attendant Coin Operated Laundry Name Role Phone Elsewhere, Pcp Primary Care Provider Unavailabl e Reason for Referral * MRI/CAT/PET Scan (Routine) - Closed Specialty Diagnoses / Procedures Referred By Arlen zamorano Referred To Contact Radiology Diagnoses Unspecified Dementia Unspecified Severity Without Behavioral Disturbance 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) Procedures MR Brain Dementia without IV Contrast Anselmo Barrios M.D., Ph.D. [address] [place] [phone] [facility] Referral ID Status Reason Start Date Expiration Date Visits Re quested Visits Authorized [id number] Closed 11/26/2023 12/26/2023 1 1 ER RUNNER Reason for Visit * MRI/CAT/PET Scan (Routine) - Closed Specialty Diagnoses / Procedures Referred By Contac t Referred To Contact Radiology Diagnoses Unspecified Dementia Unspecified Severity Without Behavioral Disturbance 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) Procedures MR Brain Dementia without IV Contrast Anselmo Barrios M.D., Ph.D. [address] [place] [phone] [facility] Referral ID Status Reason Start Date Expiration Date Visits Re quested Visits Authorized [id number] Closed 11/26/2023 12/26/2023 1 1 Encounter Details Date Type Department Care Team (Latest Contact Info) Description 11/26/2023 6:18 AM NAPPER [facility]NER - 11/26/2023 11:59 PM [facility] Hospital Encounter Department of Radiology, [facility], in [place], [place] [address] [place] [address] Anselmo Barrios M.D., Ph.D. [address] [place] [phone] Unspecified Dementia Unspecified Severity Without Behavioral Disturbance [...] drink = 0.6 oz pu re alcohol) [facility] Utilities Answer Date Recorded In the past 12 months has th e [employer], gas, oil, or water [employer] threatened to shut off services in your [...] your living situation today? I have a [facility] place to live 11/22/2023 Sex and Gender Information Value Date Recorded Sex Assigned at Male 11/21/2023 10:59 AM [facility]APPER [facility]NER Gender Identity Male 11/21/2023 10:59 AM [facility]PER [facility]NER Sexual Orientation Straight 11/21/2023 10 :59 AM NAPPER [facility]NER documented as of this encounter Medications at [...] Procedure Name Priority Date/Time Associated Diagnosis Comments MR BRAIN DEMENTIA WITHOUT IV CONTRAST RAD - Routine (most inpatients and all outpatients) 11/26/2023 7:23 AM NAPPER [facility]NER Unspecified Dementia Unspecified Severity Without Behavioral Disturbance 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) documented in this encounter Results * MR Brain Dementia without IV Contrast (11/26/2023 7:23 AM NAPPER RUNNER) Anatomical Region Laterality Modality Head, Brain, Neuroradiology RST LOS, Neuroradiology ARZ LOS N/A Magnetic Resonance Impressions 11/26/2023 8:00 AM NAPPER [facility]NER 1. ??Total microhemorrhages: None 2. ??Superficial siderosis is not detected. 3. 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 Narrative 11/26/2023 8:00 AM NAPPER RUNNER EXAM: MR BRAIN DEMENTIA WITHOUT IV CONTRAST [...] assessment was performed on an independent computer chief service observer using [employer] software. The clinical indication for performing the post-processing was dementia. ??Review of the supplier quality manager images demonstrates suboptimal segmentation of the [...] andassessment was performed on an independent computer chief service observer usingAquest Systems software. The clinical indication for performing thepost-processing was dementia. Review of the supplier quality manager images demonstrates suboptimal segmentation of the [...] right caudate head. Anselmo Barrios M.D., Ph.D. [facility] MRI PROCEDU RES documented in this encounter Visit Diagnoses Diagnosis Unspecified Dementia Unspecified Severity Without Behavioral Disturbance 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) documented in this encounter Care Teams Attendant Coin Operated Laundry Relationship Specialty Start Date End Date Elsewhere, Pcp PCP - General Internal Medicine 11/22/23 documented as of this encounter
--- OUTSIDE RECORDS SUMMARY | 2023-12-10 14:06 | XMS_ITS | Encounter Summary ---
Author Name Unknown Organization [facility] Address [address] [place] [address] Care Team Providers Care Shop Mechanic Helper Name Role Phone Elsewhere, Pcp Primary Care Provider Unavailabl e Reason for Referral * Outpatient (Routine) - Closed Specialty Diagnoses / Procedures Referred By Arlen zamorano Referred To Contact Diagnoses Unspecified Dementia Unspecified Severity Without Behavioral Disturbance 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) Procedures Lumbar puncture neurology Anselmo Barrios M.D., Ph.D. [address] [place] [address] [facility] Referral ID Status Reason Start Date Expiration Date Visits Re quested Visits Authorized [id number] Closed 11/26/2023 11/25/2024 1 1 L TRIM ERECTOR Reason for Visit * Appointment Request (Routine) - Closed Specialty Diagnoses / Procedures Referred By Arlen zamorano Referred To Contact Neurology Diagnoses Decline Cognitive Pepito Calle M.D. [address] [place] [address] Referral ID Status Reason Start Date Expiration Date Visits Re quested Visits Authorized [id number] Closed 10/02/2023 10/01/2024 1 1 Encounter Details Date Type Department Care Team (Latest Contact Info) Description 11/26/2023 3:00 PM METAL TRIM ERECTOR Comprehensive Visit Department of Neurology in [place], [place] [address] [place] [phone] Anselmo Barrios M.D., Ph.D. [address] [place] [address] Unspecified Dementia Unspecified Severity Without Behavioral Disturbance [...] drink = 0.6 oz pu re alcohol) [facility] Utilities Answer Date Recorded In the [...] your living situation today? I have a [facility] place to live 11/22/2023 Sex and Gender Information Value Date Recorded Sex Assigned at Male 11/21/2023 10:59 AM METAL TRIM ERECTOR Gender Identity Male 11/21/2023 10:59 AM METAL TRIM ERECTOR Sexual Orientation Straight 11/21/2023 10 :59 AM METAL TRIM ERECTOR documented as of this encounter Last Filed Vital Signs Vital Sign Reading Time Taken Comments Blood Pressure 97/60 11/26/2023 3:02 PM METAL TRIM ERECTOR Pulse 62 11/26/2023 3:02 PM METAL TRIM ERECTOR Temperature - - Respiratory Rate - - Oxygen Saturation - - Inhaled Oxygen Concentration - - Weight 95.6 kg (210 lb 12.2 oz) 11/26/2023 3:02 PM METAL TRIM ERECTOR Height 182.5 cm (5' 11.85) 11/26/2023 3:[address] Body Mass Index 28.7 11/26/2023 3:02 PM METAL TRIM ERECTOR documented in this encounter Consult Notes * Anselmo Barrios M.D., Ph.D. - 11/26/2023 3:00 PM CST Images from the original note were not included. SUBJECTIVE Referring Provider: Pepito Calle M.D. CHIEF COMPLAINT/ REASON FOR VISIT ADTC evaluation HISTORY OF PRESENT ILLNESS Zackary Mcgowan is a 68 y.o. 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 Collateral history was obtained from patient's in office today. Patient endorses about 2-2.5 years of progressive amnestic decline including rapid forgetting, forgetting details of conversation, misplacing items at home. He has longstanding difficulty with technology, this has worsened of late. Minor word-finding difficulties. They deny any acute onset/subacuteonset of cognitive impairment or any stepwise decline. Although at times he does have periods of lucidity. He is currently on donepezil 10 mg daily, endorses vivid dreams since starting this. He has hyperlipidemia on atorvastatin. Hypertension on losartan, metoprolol. He takes aspirin 81 daily. He has been started on citalopram for mood/adjustment disorder. No behavioral/personality changes, no hallucinations, no clear dream enactment behaviors, does talkin his sleep. Fell out of bed twice which he attributes to sleeping in bed with 2 large dogs. Driving without concerns. Manages own medications and finances without concern. 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 For tasks securities dealer for about 30 years, retired 2.5-3 years ago, no cognitive concerns at that time. Twelve years high school with 3 years [employer]. Clinical Dementia Rating (CDR) Scale from [employer] on 11/26/2023 All calculations should be rechecked by clinician prior to use RESULT SUMMARY: 0.5 CDR Very mild dementia INPUTS: Memory (M) --> 0.5 = Mild consistent forgetfulness; partial recollection of events; benign forgetfulness (0.5) Orientation (O) --> 0 = Fully oriented (0) Judgment and problem solving (JPS) --> 0.5 = Slight impairment in solving problems, similarities, and differences (0.5) Community affairs (CA) --> 0 = Independent function at usual level in job, shopping, business, and financial affairs, volunteer and social groups (0) Home and hobbies (HH) --> 0 = Life at home, hobbies, and intellectual interests well maintained (0) Personal care (PC) --> 0 = Fully capable of self-care (0) Functional status: Fully functional in ADLs/IADLs I have reviewed outside records for this visit. I have directly reviewed imaging studies for this visit. SYSTEMS REVIEW A 14-point review of systems was completed; pertinent positives noted in HPI. OBJECTIVE The following portions of the patient's history were reviewed and updated as appropriate: allergies, current medications, family history, medical history, social history, surgical history, and problem list. MEDICATIONS I have reviewed the patient's current medications. PAST MEDICAL/SURGICAL HISTORY Past Medical History: Diagnosis Date Anxiety Generalized Disorder Dementia (HCC) Depressive Disorder Hyperlipidemia Hypertension NOS Sleep Apnea Past Surgical History: Procedure Laterality Date SINUS SURGERY polyps/deviated septum TONSILLECTOMY child SOCIAL HISTORY Social History Tobacco Use Smoking Status Former Types: Cigarettes Start date: 11/16/1977 Quit date: 05/31/2002 Years since quittin.5 Passive exposure: Past Smokeless Tobacco Never Tobacco Comments I have not smoked for 22 years Social History Substance and Sexual Activity Drug Use Not on file Social History Substance and Sexual Activity Alcohol Use Yes Alcohol/week: 10.0 standard drinks of alcohol Types: 10 Cans of beer per week FAMILY HISTORY Brother with dementia late 60s/early 70s, h/o mood disorder s/p ECT, addiction to ethanol and pain killers VITAL SIGNS I have reviewed vital signs as recorded in the EPIC record. PHYSICAL EXAM General: alert Respiratory: Breathing comfortably on room air Neurologic exam: Higher Cortical Function Kokmen: Previously scored 36/38 Luria: Intact No evidence of finger agnosia No difficulty with multistep commands Speech No evidence of dysarthria Language Gross naming/repetition/comprehension intact, no significant word finding pauses in spontaneous speech Cranial nerves EOM are full, without nystagmus VF full to confrontation to finger wiggle No gross facial asymmetry Tongue protrudes midline Motor Normal tone throughout Full strength in all muscle groups Gesture copy intact Sensory Sensation intact to light touch throughout Coordination FNF intact without dysmetria AMRs Upper/lower Extremities: normal amplitude, rate and rhythm, symmetric bilaterally Tremor: No rest tremor Reflexes Normal and symmetric throughout Gait Normal stride length, heel strike, and turns. Arm swing is reduced slightly bilaterally ([id number]) Pull test: Negative DIAGNOSTICS I have personally reviewed all available diagnostics, including any laboratory, imaging, or procedure documentation. Labs: Lab Results Component Value Date TSH 2.2 11/26/2023 PLT 209 11/26/2023 CREATININE 0.99 11/26/2023 Imaging: Age advanced cerebrovascular disease including chronic right caudate infarct. Mild generalized atrophy. ASSESSMENT / PLAN SUMMARY & FORMULATION: Zackary Mcgowan is a 68 y.o. 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 Mr. Mcgowan has had about 2-2.5 years of gradually progressive amnestic concerns and early dysexecutive features, he remains fully functional in ADLs with compensatory strategies including list making. On neuropsych assessment earlier today he scored 35/38 on Kokmen, cognitive profile was consistent with multi domain amnestic mild cognitive impairment. On assessment today there was no valentine parkinsonism (mild reduced arm swing on the left), apraxia, or aphasia. On MRI he had age advanced cerebrovascular disease including a chronic right caudate infarct which has been present at least since December 2022. Taken together, patient has several years progressive amnestic predominant concerns now consistent with mild cognitive impairment. We will proceed with [facility] evaluation to 1st confirmdiagnosis then discuss ongoing management recommendations including possible candidacy for lecanemab (they live around [place] from [facility]). I will meet with Mr. Mcgowan and his this to discuss results. SYNOPSIS OF PLAN: Screening labs, and EKG MRI brain and neuropsych evaluation have been performed FDG PET (nonvascular dementia, FTD vs. AD) APOE genotype, counseled in office today Lumbar puncture with AD biomarkers. I reviewed the risks, benefits and alternatives of the procedure. They voiced understanding and agreement with proceeding. Patient is taking aspirin 81, ELVIN guidelines suggest continue with lumbar puncture from this perspective. Discussed with patient that there might be slight increased risk of bleeding without holding. 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 Time includes both non face to face andface to face patient care. This patient was staffed with Dr. Gomes. Anselmo Barrios M.D., Ph.D. 11/26/23 L TRIM ERECTOR * Kiel Gomes M.D., Ph.D. - 11/26/2023 3:00 PM CST Supervisory note for Dr. Barrios. I interviewed the patient and performed thomas elements of the examination. I agree with Dr. Barrios's findings, assessment, and plan, unless as noted below, and refer to hisnote for additional details. #1 Amnestic multi domain mild cognitive impairment This 60-year-old man from [place] was seen for a [facility] evaluation. He has experienced about 12-18 months of difficulties with memory, word-finding, and multitasking. He remains more independent thannot in daily life. He scored 35/38 on the Kokmen STMS. Neuropsychological testing showed memory impairment along with some more subtle difficulties on measures of processing speed/executive functioning and naming. Brain MRI shows at least moderate burden of microvascular disease changes and a chronic lacunar infarct in the basal ganglia. To further evaluate we will obtain brain FDG PET and lumbar puncture for CSF AD biomarkers (amyloidPET was denied insurance coverage though this is being appealed). He had screening labs and EKG earlier today and APOE allele testing was drawn as well. He will meet back with Dr. Barrios later this week following multidisciplinary case review. L TRIM ERECTOR documented in this encounter Plan of Treatment Scheduled Orders Name Type Priority Associated Diagnoses Orde r Schedule Additional Sample for Reflex Oligoclonal Banding Lab Routine Unspecified Dementia Unspecified Severity Without Behavioral Disturbance 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) Expected: 11/26/2023 (Approximate), Expires: 02/24/2025 documented as of this encounter Results * Immunoglobulin [place] Free Light Chain, CSF (automatically paired with serum) (11/27/2023 9:23 AM METAL TRIM ERECTOR) [place] Free Light Chain, CSF 0.0565 <0.1000 mg/dL 11/28/2023 8:32 AM METAL TRIM ERECTOR [facility] Comment: Negative. The kappa free light concentration measured in CSF is lower than the threshold associated with multiple sclerosis. Clinical correlation recommended. ----ADDITIONAL INFORMATION---- This test has been modified from the press hand's instructions. Its performance characteristics were determined by [facility] in a manner consistent with CLIA requirements. This test has not been cleared or approved by the U.S. Food and Drug Administration. A [facility] study published in 2018 with 325 patients ?? suggested that a kappa free light chain concentration in CSF greater than or equal to 0.06 mg/dL has 92% clinical sensitivity in the diagnosis of multiple sclerosis (ref 1). A second, larger [facility] study with 1355 patients published in [...] FLORES, Dinorah PURDY, ?? Ian CRUZ, Rocky GARICA, et al. CSF free light chain identification of demyelinating disease: comparison with oligoclonal banding and other CSF indexes. Clin Chem Lab Med. 2018;56(7):1071-80. 2.Sina AGUILLON, Chu FLORES, Uri Dallas, Steven Scott, Ian CRUZ, Rocky GARCIA, et al. CSF [place] Free Light ?? Chains: Cutoff Validation for Diagnosing Multiple Sclerosis. [place] Clin Proc. 2020; V7536-6587(13)69520-8. doi: 10.1016/j.mayocp.2020.09.014. Cerebrospinal Fluid (Cerebrospinal Fluid) 11/27/2023 9:23 AM METAL TRIM ERECTOR 11/28/2023 6:46 AM METAL TRIM ERECTOR Anselmo Barrios M.D., Ph.D. LAB BODY FLUIDS AND STOOLS ORDERABLES [facility] [address] [place] [address] [facility] [address] [place] [address] * (ABNORMAL) Alzheimer???s Disease Evaluation, CSF (11/27/2023 9:23 AM METAL TRIM ERECTOR) p-Tau/Abeta42 0.063(H) <=0.028 ratio 11/27/2023 2:13 PM METAL TRIM ERECTOR [facility] AD Interpretation SEE COMMENT 11/27/2023 2:13 PM METAL TRIM ERECTOR [facility] Comment: The elevated p-Tau/Abeta42 ratio [...] the p-Tau/Abeta42 ratio. The p-Tau assay measures p-[id number] (Tau phosphorylated at threonine 181). ----ADDITIONAL INFORMATION---- The testing method is an electrochemiluminescence assay manufactured by [employer] Effective March 28, 2023, a formulation change was implemented in the [employer] Abeta42 and p-Xdu211 reagent (Generation I to Generation II). Internal [...] Abeta42 934 >834 pg/mL 11/27/2023 2:13 PM [facility] Comment: ----ADDITIONAL INFORMATION---- The testing method is an electrochemiluminescence assay manufactured by [employer] Effective March 28, 2023, a formulation change was implemented in the [employer] Abeta42 reagent (Generation I to Generation II). The [employer] B-Amyloid (1-42) CSF II assay was restandardized using certified reference materials (CRMs) ERM-[id number]/-481/-482/[facility]. Internal studies indicate a reduction in measured [...] Total-Tau 490(H) <=238 pg/mL 11/27/2023 2:13 PM METAL TRIM ERECTOR [facility] Comment: ----ADDITIONAL INFORMATION---- The testing method is an electrochemiluminescence assay manufactured by [employer] Values obtained with different assay methods or kits may be different and cannot be used interchangeably. This test was developed and its performance characteristics determined by [facility] in a manner consistent with CLIA requirements. This test has not been cleared or approved by the U.S. Food and Drug Administration. Phospho-Tau(181P) 58.6(H) <=21.6 pg/mL 11/27/2023 2:13 PM [facility] Comment: ----ADDITIONAL INFORMATION---- The testing method is an electrochemiluminescence assay manufactured by [employer] Effective March 28, 2023, a formulation change was implemented in the [employer] p-Mla006 reagent (Generation I to Generation II). Internal studies indicate a slight reduction in measured p-Wny537 concentrations under specified assay collection conditions when using the new reagent formulation. Accordingly, the reference value has been modified from < or = 21.7 pg/mL (Gen I) to < or = 21.6 (Gen II). Values obtained with different assay methods or kits may be different and cannot be used interchangeably. Cerebrospinal Fluid (Cerebrospinal Fluid) 11/27/2023 9:23 AM METAL TRIM ERECTOR 11/27/2023 1:22 PM METAL TRIM ERECTOR Anselmo Barrios M.D., Ph.D. LAB BODY FLUIDS AND STOOLS ORDERABLES [facility] [address] [place] [address] [facility] [address] [place] [address] * Glucose, CSF (11/27/2023 9:23 AM METAL TRIM ERECTOR) Glucose, CSF 54 mg/dL 11/27/2023 10:21 AM METAL TRIM ERECTOR [facility] Comment: ----REFERENCE VALUE---- CSF glucose concentration should be approximately 60% of the plasma /serum concentration and should be compared with concurrently measured plasma /serum glucose for adequate clinical interpretation. Cerebrospinal Fluid (Cerebrospinal Fluid) 11/27/2023 9:23 AM METAL TRIM ERECTOR 11/27/2023 9:38 AM METAL TRIM ERECTOR Anselmo Barrios M.D., Ph.D. LAB BODY FLUIDS AND STOOLS ORDERABLES Performing Organization Address City/[facility]/ZIP Co de Phone Number [facility] [place] [address] [place] [address] * (ABNORMAL) Protein, Total, CSF (11/27/2023 9:23 AM METAL TRIM ERECTOR) Pathologist [facility] Protein, Total, CSF 53(H) 0 - 35 mg/dL 11/27/2023 10:21 AM METAL TRIM ERECTOR [facility] Cerebrospinal Fluid (Cerebrospinal Fluid) 11/27/2023 9:23 AM METAL TRIM ERECTOR 11/27/2023 9:38 AM METAL TRIM ERECTOR Anselmo Barrios M.D., Ph.D. LAB BODY FLUIDS AND STOOLS ORDERABLES Performing Organization Address City/[facility]/ZIP Co de Phone Number [facility] [place] [address] [place], [place] [id number] [place] [address] * Cell Count and Differential, CSF (11/27/2023 9:23 AM METAL TRIM ERECTOR) Fluid Type CSF 11/27/2023 10:21 AM METAL TRIM ERECTOR [facility] CSF Gross Appearance Clear 11/27/2023 10:21 AM METAL TRIM ERECTOR [facility] Total Nucleated Cells 4 0 - 5 /mcL 11/27/2023 10:21 AM METAL TRIM ERECTOR [facility] Comment: ----ADDITIONAL INFORMATION---- This test has been modified from the press hand's instructions. Its performance characteristics were determined by [facility] in a manner consistent with CLIA requirements. This test has not been cleared or approved by the U.S. Food and Drug Administration. Erythrocytes 0 /mcL 11/27/2023 10:21 AM [facility] Comment: ----REFERENCE VALUE---- The reference range and other method performance specifications have not been established for this body fluid. The test result must be integrated into the clinical context for interpretation. Lymphocytes 66 % 11/27/2023 11:04 AM [facility] Comment: ----REFERENCE VALUE---- Adult: (60% +/- 20%) Neonates: (20% +/- 15%) Monocytes/Macrophag es 34 % 11/27/2023 11:04 AM [facility] Comment: ----REFERENCE VALUE---- Adult: (30% +/- 15%) Neonates: (70% +/- 20%) Diff Comments See Comment 11/27/2023 11:04 AM [facility] Comment:No abnormal cells se en. 76 cells counted. Comment See Comment 11/27/2023 11:04 AM [facility] Comment:No blasts or maligna nt cells seen. Reviewed by: Pelon 11/27/2023 11:04 AM [facility] Fluid (Cerebrospinal Fluid) 11/27/2023 9:23 AM METAL TRIM ERECTOR 11/27/2023 9:52 AM [facility] Anselmo Barrios M.D., Ph.D. LAB BODY FLUIDS AND STOOLS ORDERABLES [facility] [place] [address] [place] [address], [facility] [address] [place] [address] * [place] PUNCTURE SPINAL LUMBAR DX (11/27/2023 8:30 AM METAL TRIM ERECTOR) Narrative MMODAL - 11/27/2023 8:30 AM METAL TRIM ERECTOR Tana Stanford R.N. ? 11/27/2023 10:08 AM [...] clear Total volume (mL): 7.5 (1 ml [place] and 2.5 ml ROMERO both on wet [...] Anselmo Barrios M.D., Ph.D. NEUROLOGY ORDER MOSES MMODAL NA documented in this encounter Visit Diagnoses Diagnosis Unspecified Dementia Unspecified Severity Without Behavioral Disturbance 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)- Primary Unspecified Dementia Unspecified Severity Without Behavioral Disturbance 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) documented in this encounter Care Teams Shop Mechanic Helper Relationship Specialty Start Date End Date Elsewhere, Pcp PCP - General Internal Medicine 11/22/23 documented as of this encounter
--- OUTSIDE RECORDS SUMMARY | 2023-12-10 14:06 | XMS_ITS | Encounter Summary ---
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 [address] [place] [phone] [facility] Referral ID Status Reason Start Date Expiration Date Visits Re quested Visits Authorized [id number] Closed 11/27/2023 12/27/2023 6 1 ASSISTANT * Specialty Diagnoses / Procedures Referred By Contenma t Referred To Contact Anselmo Barrios M.D., Ph.D. 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 [address] [place] [phone] [facility] Referral ID Status Reason Start Date Expiration Date Visits Re quested Visits Authorized [id number] Closed 10/11/2023 10/10/2024 1 1 ASSISTANT Encounter Details Date Type Department Care Team (Late st Contact Info) Description 10/10/2023 Clinical Communication Department of Neurology in [place], [place] [address] [place] [phone] Anselmo Barrios M.D., Ph.D. [address] [place] [phone] Social History Tobacco Use Types Packs/Day Years Used Date Smoking Tobacco: Never Assessed Nutrition Answer Date Recorded Nutrition: EVOO Fat Source Unknown 09/12 Nutrition: Servings of Fruits/Vegetables per Day Not on file 09/12/2023 Dental Answer Date Recorded Dental: Regular Dentist Unknown 09/12/20 Sex and Gender Information Value Date Recorded Sex Assigned at Male 11/21/2023 10:59 AM PHYS ASSISTANT Gender Identity Male 11/21/2023 10:59 AM PHYS ASSISTANT Sexual Orientation Straight 11/21/2023 10 :59 AM PHYS ASSISTANT documented as of this encounter Plan of Treatment Scheduled Orders Name Type Priority Associated Diagnoses Orde r Schedule Glucose, Random Lab Routine Unspecified Dementia Unspecified Severity Without Behavioral Disturbance 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) Expected: 11/26/2023, Expires: 10/12/2025 Scheduled Referrals Name Type Priority Associated Diagnoses Orde r Schedule Social Work - General consult (clinic) Outpatient Referral Routine Unspecified Dementia Unspecified Severity Without Behavioral Disturbance 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) Expected: 11/26/2023, Expires: 10/12/2025 Neurology office visit (clinic) Outpatient Referral Routine Unspecified Dementia Unspecified Severity Without Behavioral Disturbance 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) Expected: 11/26/2023, Expires: 10/12/2025 Neurology - Cognitive dementia education visit (clinic) Outpatient Referral Routine Unspecified Dementia Unspecified Severity Without Behavioral Disturbance 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 Narrative 11/27/2023 2:55 PM PHYS ASSISTANT EXAM: ??PET CT BRAIN METABOLIC EVALUATION Serum glucose at time of F-18 FDG injection was 87 mg/dL. RADIOPHARMACEUTICAL/MEDS: Route: intravenous fludeoxyglucose F 18 injection ALF (FDG F-18),4.72 millicurie TECHNIQUE: F-18 FDG PET/CT [...] RADIOPHARMACEUTICAL/MEDS: Route: intravenous fludeoxyglucose F 18 injection ALF (FDG F-18),4.72 millicurie TECHNIQUE: F-18 FDG PET/CT [...] normal limitsfor age. Anselmo Barrios M.D., Ph.D. [facility] PROC[facility] * ECG 12 Lead (11/26/2023 1:08 PM PHYS ASSISTANT) Ventricular Rate ECG/Min 67 BPM MUSE [place] Interval 212 ms MUSE QRSD Interval 108 ms MUSE QT Interval 436 ms MUSE QTC Interval 460 ms MUSE P Cobb 54 degrees MUSE R Cobb 6 degrees MUSE T Wave [place] 49 degrees MUSE 11/26/2023 1:08 PM PHYS ASSISTANT 11/26/2023 1:30 PM PHYS ASSISTANT Impressions MUSE - 11/26/2023 1:30 PM PHYS ASSISTANT Sinus rhythm with 1st degree A-V block [...] be normal variant ( R in aVL ,[place] product ) Nonspecific ST abnormality No previous ECGs available Reviewed by NEY Hare Anselmo Barrios M.D., Ph.D. ECG ORDERABLES MUSE NA * Additional Sample for Reflex Oligoclonal Banding (11/26/2023 11:30 AM PHYS ASSISTANT) Additional sample for reflex OLIGS Collected DEFAULT 11/27/2023 6:29 AM PHYS ASSISTANT [facility] Blood (Blood, Venous) 11/26/2023 11:30 AM PHYS ASSISTANT 11/27/2023 6:29 AM PHYS ASSISTANT Anselmo Barrios M.D., Ph.D. LAB BLOOD NON A DD-ON [facility] [address] [place] [address] [facility] [address] [place] [address] * Apolipoprotein E Genotyping (11/26/2023 11:30 AM PHYS ASSISTANT) Result Summary COMPLEX (SEE RESULT AND INTERPRETATION) 11/28/2023 10:26 AM PHYS ASSISTANT DTL Result Genotype: e3/e4 10:26 AM PHYS ASSISTANT DTL Reason for Referral Test for the presence of the e2, e3, and e4 alleles in the APOE gene. 11/28/2023 10:26 AM PHYS ASSISTANT DTL Specimen WB Whole Blood 11/28/2023 10:26 AM PHYS ASSISTANT DTL Released By Sd Erazo, Ph.D. 11/28/19 10:26 AM PHYS ASSISTANT DTL Interpretation The e4 allele leads to [...] disease is not currently recommended by the [employer] due to limited clinical utility and poor predictive value (3, 4). Less common APOE variants that do not alter a restriction site for HhaI will not be detected by this assay. REFERENCES 1. Anai Int Med. 2004, 141:137-47 (PMID 80726260) 2. KITTY 1997; 278:9291-1307 (PMID [id number]) 3. Janine Med 2011; 13:597-605 (PMID [id number]) 4. [employer] and Genomics 2014May 07. Retrieved from www.choosingwise ly.org/societies /slovenian-colle e-fm-ntpefid -tlekvylv-pwc-jz nomics/) 11/28/2023 10:26 AM PHYS ASSISTANT DTL Comment: ----ADDITIONAL INFORMATION---- A PCR-based assay, including Buckle Strap Drum Operator I digestion of the amplified product, was utilized to identify the three common APOE alleles (epsilon2, epsilon3, and epsilon4). An online research opportunity called [employer] (genomeMeUndies.org), a project of [employer], is available for the recipient of this genetic test. This patient registry collects de-identified genetic and health information to advance the knowledge of genetic variants. [facility] is a collaborator of [employer]. This may not be applicable for all [...] allogenic donors will interfere with testing. Call [facility] for instructions for testing patients [...] developed and its performance characteristics determined by [facility] in a manner consistent with CLIA requirements. This test has not been cleared or approved by the U.S. Food and Drug Administration. Blood (Blood, Venous) 11/26/2023 11:30 AM PHYS ASSISTANT 11/26/2023 11:56 AM PHYS ASSISTANT Anselmo Barrios M.D., Ph.D. LAB GENETIC OSMAN TING Performing Organization Address City/[facility]/ZIP Co de Phone Number [facility] [address] [place] [address], [facility] DTL [address] [facility] [address] [place] [address] * Pernicious Anemia Aspen (11/26/2023 11:30 AM PHYS ASSISTANT) Pathologist [facility] Vitamin B12 Assay, S 390 180 - 914 ng/L 11/26/2023 4:54 PM PHYS ASSISTANT [facility] Comment:B-12 <400; MMA test was performed. Blood (Blood, Venous) 11/26/2023 11:30 AM PHYS ASSISTANT 11/26/2023 3:07 PM PHYS ASSISTANT Anselmo Barrios M.D., Ph.D. LAB BLOOD NON A DD-ON Performing Organization Address City/[facility] Co de Phone Number [facility] [address] [place] [address] [facility] [address] [place] [address] * Thyroid Function Aspen (11/26/2023 11:30 AM PHYS ASSISTANT) Pathologist [facility] TSH, Sensitive 2.2 0.3 - 4.2 mIU/L 11/26/2023 12:31 PM PHYS ASSISTANT DT Blood (Blood, Venous) 11/26/2023 11:30 AM PHYS ASSISTANT 11/26/2023 11:52 AM PHYS ASSISTANT Anselmo Barrios M.D., Ph.D. LAB BLOOD ADD-O N [facility] [address] [place] [address], [place] DTL [facility] [address] [place] [address] * Comprehensive Metabolic Panel (11/26/2023 11:30 AM PHYS ASSISTANT) Pathologist [facility] Potassium, S 4.3 3.6 - 5.2 mmol/L 11/26/2023 12:31 PM PHYS ASSISTANT DTL Sodium, S 140 135 - 145 mmol/L 11/26/2023 12:31 PM PHYS ASSISTANT DTL Chloride, S 105 98 - 107 mmol/L 11/26/2023 12:31 PM PHYS ASSISTANT DTL Bicarbonate, S 27 22 - 29 mmol/L 11/26/2023 12:31 PM PHYS ASSISTANT DTL Anion Gap 8 7 - 15 11/26/2023 12:31 PM PHYS ASSISTANT DTL BUN (Blood Urea Nitrogen), S 13 8 - 24 mg/dL 11/26/2023 12:31 PM PHYS ASSISTANT DTL Creatinine 0.99 0.74 - 1.35 mg/dL 11/26/2023 12:31 PM PHYS ASSISTANT DTL Estimated GFR (eGFR) 83 >=60 mL/min/BS A 11/26/2023 12:31 PM PHYS ASSISTANT DTL Comment: Estimated GFR calculated using the 2020 CKD_EPI creatinine equation. Calcium, Total, S 9.3 8.8 - 10.2 mg/dL 11/26/2023 12:31 PM PHYS ASSISTANT DTL Glucose, S 98 70 - 140 mg/dL 11/26/2023 12:31 PM PHYS ASSISTANT DTL Protein, Total, S 7.3 6.3 - 7.9 g/dL 11/26/2023 12:31 PM PHYS ASSISTANT DTL Albumin, S 4.3 3.5 - 5.0 g/dL 11/26/2023 12:31 PM PHYS ASSISTANT DTL Aspartate Aminotransferase (AST), S 28 8 - 48 U/L 11/26/2023 12:31 PM PHYS ASSISTANT DTL Alkaline Phosphatase, S 119 40 - 129 U/L 11/26/2023 12:31 PM PHYS ASSISTANT DTL Alanine Aminotransferase (ALT), S 32 7 - 55 U/L 11/26/2023 12:31 PM PHYS ASSISTANT DTL Bilirubin, Total, S 1.2 0.0 - 1.2 mg/dL 11/26/2023 12:31 PM PHYS ASSISTANT DTL Blood (Blood, Venous) 11/26/2023 11:30 AM PHYS ASSISTANT 11/26/2023 11:52 AM PHYS ASSISTANT Anselmo Barrios M.D., Ph.D. LAB BLOOD ADD-O N [facility] [address] [place] [address], [facility] [address] [place] [address] * APTT (Activated Partial Thromboplastin Time) (11/26/2023 11:30 AM PHYS ASSISTANT) Activated Partial Thrombopl Time, P 28 25 - 37 sec 11/26/2023 12:05 PM PHYS ASSISTANT DTL Blood (Blood, Venous) 11/26/2023 11:30 AM PHYS ASSISTANT 11/26/2023 11:42 AM PHYS ASSISTANT Anselmo Barrios M.D., Ph.D. LAB BLOOD ADD-O N Performing Organization Address City/[facility] Co de Phone Number [facility] [address] [place] [address], [facility] [address] [place] [address] * Prothrombin Time (PT) (11/26/2023 11:30 AM PHYS ASSISTANT) Prothrombin Time, P 11.2 9.4 - 12.5 sec 11/26/2023 12:05 PM PHYS ASSISTANT DTL INR 1.0 0.9 - 1.1 11/26/2023 12:05 PM PHYS ASSISTANT DTL Comment: ----ADDITIONAL INFORMATION---- Standard intensity warfarin therapeutic range: 2.0 to 3.0 ?? High intensity warfarin therapeutic range: 2.5 to 3.5 Blood (Blood, Venous) 11/26/2023 11:30 AM PHYS ASSISTANT 11/26/2023 11:42 AM PHYS ASSISTANT Anselmo Barrios M.D., Ph.D. LAB BLOOD ADD-O N [facility] [address] [place] [address], [facility] DTL [facility] [address] [place] [address] * CBC with Differential, Blood (11/26/2023 11:30 AM PHYS ASSISTANT) Hemoglobin 14.7 13.2 - 16.6 g/dL 11/26/2023 11:49 AM PHYS ASSISTANT DTL Hematocrit 43.3 38.3 - 48.6 % 11/26/2023 11:49 AM PHYS ASSISTANT DTL Erythrocytes 4.71 4.35 - 5.65 x10(12)/L 11/26/2023 11:49 AM PHYS ASSISTANT DTL MCV 91.9 78.2 - 97.9 fL 11/26/2023 11:49 AM PHYS ASSISTANT DTL RBC Distrib Width 12.0 11.8 - 14.5 % 11/26/2023 11:49 AM PHYS ASSISTANT DTL Platelet Count 209 135 - 317 x10(9)/L 11/26/2023 11:49 AM PHYS ASSISTANT DTL Leukocytes 6.7 3.4 - 9.6 x10(9)/L 11/26/2023 11:49 AM PHYS ASSISTANT DTL Neutrophils 4.09 1.56 - 6.45 x10(9)/L 11/26/2023 11:49 AM PHYS ASSISTANT [facility] Lymphocytes 1.89 0.95 - 3.07 x10(9)/L 11/26/2023 11:49 AM PHYS ASSISTANT DTL Monocytes 0.49 0.26 - 0.81 x10(9)/L 11/26/2023 11:49 AM PHYS ASSISTANT DTL Eosinophils 0.16 0.03 - 0.48 x10(9)/L 11/26/2023 11:49 AM PHYS ASSISTANT DTL Basophils 0.05 0.01 - 0.08 x10(9)/L 11/26/2023 11:49 AM PHYS ASSISTANT DTL Blood (Blood, Venous) 11/26/2023 11:30 AM PHYS ASSISTANT 11/26/2023 11:42 AM PHYS ASSISTANT Anselmo Barrios M.D., Ph.D. LAB BLOOD ADD-O N [facility] [address] [place] [address], [place] DTL [facility] [address] [place] [address] DHPM [facility] [address] [place] [address] * MR Brain Dementia without IV Contrast (11/26/2023 7:23 AM PHYS ASSISTANT) Anatomical Region Laterality Modality Head, Brain, Neuroradiology RST LOS, Neuroradiology ARZ LOS N/A Magnetic Resonance Impressions 11/26/2023 8:00 AM PHYS ASSISTANT 1. ??Total microhemorrhages: None 2. ??Superficial siderosis is not detected. 3. 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 Narrative 11/26/2023 8:00 AM PHYS ASSISTANT EXAM: MR BRAIN DEMENTIA WITHOUT IV CONTRAST [...] assessment was performed on an independent computer sports book server using NeuroQuant software. The clinical indication for performing the post-processing was dementia. ??Review of the quality assurance intern images demonstrates suboptimal segmentation of the hippocampi. [...] andassessment was performed on an independent computer sports book server usingThermal Nomad software. The clinical indication for performing thepost-processing was dementia. Review of the quality assurance intern images demonstrates suboptimal segmentation of the hippocampi.The [...] right caudate head. Anselmo Barrios M.D., Ph.D. 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
--- OUTSIDE RECORDS SUMMARY | 2023-12-10 14:06 | XMS_ITS | Encounter Summary ---
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 [address] [place] [phone] [facility] Referral ID Status Reason Start Date Expiration Date Visits Re quested Visits Authorized [id number] Closed 11/26/2023 11/25/2024 1 1 Encounter Details Date Type Department Care Team (Latest Contact Info) Description 11/27/2023 8:30 AM LOADER HELPER Procedure visit Department of Neurology in [place], [place] [address] [place] [phone] Anselmo Barrios M.D., Ph.D. 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 I have a [facility] place to live 11/22/2023 Sex and Gender Information Value Date Recorded Sex Assigned at Male 11/21/2023 10:59 AM LOADER HELPER Gender Identity Male 11/21/2023 10:59 AM LOADER HELPER Sexual Orientation Straight 11/21/2023 10 :59 AM LOADER HELPER documented as of this encounter Procedure Notes * Tana Stanford RTapanN. 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 Authorized by: Anselmo Barrios M.D., Ph.D. PROCEDURE DETAILS Patient position: left lateral decubitus Lumbar space: L3-L4 interspace Needle gauge: 20 G Needle type: spinal needle - Quincke tip Needle length (in): 3.5 Number of attempts: 1 (1 pass) Opening pressure (mm H2O): 150 Fluid appearance: clear Total volume (mL): 7.5 (1 ml Brock and 2.5 ml ROMERO both on wet ice sent to lab via tube station along with other ambient CSF.) Specimen collected: yes CSF collection method: gravity pull CONSENT Consent [...] utilized as applicable for the procedure: yes SEDATION / ANESTHESIA Anesthesia method: local infiltration Local infiltrate type: lidocaine, see MAR for dose POST-PROCEDURE DETAILS Procedure completed successfully: yes Puncture site: adhesive bandage applied, direct pressure applied and clean and dry Complications: no immediate complications Comments Patient was educated on lumbar puncture procedure, post procedure care, and written consent was obtained. Patient denied any pain or headache before the procedure. Patient tolerated the procedure andCSF was collected successfully. Patient denied pain or headache post procedure. Band-aid was clean,dry, and intact. 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) CELL COUNT AND DIFFERENTIAL, CSF Routine 11/27/2023 9:23 AM LOADER HELPER Unspecified Dementia Unspecified Severity Without Behavioral Disturbance 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) PROTEIN, TOTAL, CSF Routine 11/27/2023 9 :23 AM LOADER HELPER Unspecified Dementia Unspecified Severity Without Behavioral Disturbance 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) GLUCOSE, CSF Routine 11/27/2023 9:23 AM LOADER HELPER Unspecified Dementia Unspecified Severity Without Behavioral Disturbance 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) VA PUNCTURE SPINAL LUMBAR DX Routine 11/27/2023 8:30 AM LOADER HELPER Unspecified Dementia Unspecified Severity Without Behavioral Disturbance 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 Its performance characteristics were determined by [facility] in a manner consistent with CLIA requirements. This test has not been cleared or approved by the U.S. Food and Drug Administration. Erythrocytes 0 /mcL 11/27/2023 10:21 AM LOADER HELPER [facility] Comment: ----REFERENCE VALUE---- The reference range and other method performance specifications have not been established for this body fluid. The test result must be integrated into the clinical context for interpretation. Lymphocytes 66 % 11/27/2023 11:04 AM [facility] Comment: ----REFERENCE VALUE---- Adult: (60% +/- 20%) Neonates: (20% +/- 15%) Monocytes/Macrophag es 34 % 11/27/2023 11:04 AM [facility] Comment: ----REFERENCE VALUE---- Adult: (30% +/- 15%) Neonates: (70% +/- 20%) Diff Comments See Comment 11/27/2023 11:04 AM [facility] Comment:No abnormal cells se en. 76 cells counted. Comment See Comment 11/27/2023 11:04 AM [facility] Comment:No blasts or maligna nt cells seen. Reviewed by: Pelon 11/27/2023 11:04 AM [facility] Fluid (Cerebrospinal Fluid) 11/27/2023 9:23 AM LOADER HELPER 11/27/2023 9:52 AM LOADER HELPER Anselmo Barrios M.D., Ph.D. LAB BODY FLUIDS AND STOOLS ORDERABLES Performing Organization Address [facility] Co de Phone Number [facility] 200 [place] [address], [facility] 200 [place] [address] * (ABNORMAL) Protein, Total, CSF (11/27/2023 9:23 AM LOADER HELPER) Protein, Total, CSF 53(H) 0 - 35 mg/dL 11/27/2023 10:21 AM LOADER HELPER DTL Cerebrospinal Fluid (Cerebrospinal Fluid) 11/27/2023 9:23 AM LOADER HELPER 11/27/2023 9:38 AM LOADER HELPER nAselmo Barrios M.D., Ph.D. LAB BODY FLUIDS AND STOOLS ORDERABLES Performing Organization Address City/[facility]/ZIP Co de Phone Number [facility] [address] 200 [place] [address] * Glucose, CSF (11/27/2023 9:23 AM LOADER HELPER) Pathologist [facility] [place] Glucose, CSF 54 mg/dL 11/27/2023 10:21 AM LOADER HELPER [facility] Comment: ----REFERENCE VALUE---- CSF glucose concentration should be approximately 60% of the plasma /serum concentration and should be compared with concurrently measured plasma /serum glucose for adequate clinical interpretation. Cerebrospinal Fluid (Cerebrospinal Fluid) 11/27/2023 9:23 AM LOADER HELPER 11/27/2023 9:38 AM LOADER HELPER Anselmo Barrios M.D., Ph.D. LAB BODY FLUIDS AND STOOLS ORDERABLES [facility] [address] 200 [place] [address] * (ABNORMAL) Alzheimer???s Disease Evaluation, CSF (11/27/2023 9:23 AM LOADER HELPER) [facility] p-Tau/Abeta42 0.063(H) <=0.028 ratio 11/27/2023 2:[address] [facility] AD Interpretation SEE COMMENT 11/27/2023 2:[address] [facility] Comment: The elevated p-Tau/Abeta42 ratio [...] the p-Tau/Abeta42 ratio. The p-Tau assay measures p-[id number] (Tau phosphorylated at threonine 181). ----ADDITIONAL INFORMATION---- The testing method is an electrochemiluminescence assay manufactured by [employer] Effective March 28, 2023, a formulation change was implemented in the [employer] Abeta42 and p-Exe747 reagent (Generation I to Generation II). Internal [...] Abeta42 934 >834 pg/mL 11/27/2023 2:13 PM [facility] Comment: ----ADDITIONAL INFORMATION---- The testing method is an electrochemiluminescence assay manufactured by [employer] Effective March 28, 2023, a formulation change was implemented in the [employer] Abeta42 reagent (Generation I to Generation II). The [employer] B-Amyloid (1-42) CSF II assay was restandardized using certified reference materials (CRMs) ERM-DA480/-481/-482/[facility]. Internal studies indicate a reduction in measured [...] Total-Tau 490(H) <=238 pg/mL 11/27/2023 2:[address] [facility] Comment: ----ADDITIONAL INFORMATION---- The testing method is an electrochemiluminescence assay manufactured by [employer] Values obtained with different assay methods or kits may be different and cannot be used interchangeably. This test was developed and its performance characteristics determined by [facility] in a manner consistent with CLIA requirements. This test has not been cleared or approved by the U.S. Food and Drug Administration. Phospho-Tau(181P) 58.6(H) <=21.6 pg/mL 11/27/2023 2:[address] [facility] Comment: ----ADDITIONAL INFORMATION---- The testing method is an electrochemiluminescence assay manufactured by [employer] Effective March 28, 2023, a formulation change was implemented in the [employer] p-Wun944 reagent (Generation I to Generation II). Internal studies indicate a slight reduction in measured p-Aku704 concentrations under specified assay collection conditions when using the new reagent formulation. Accordingly, the reference value has been modified from < or = 21.7 pg/mL (Gen I) to < or = 21.6 (Gen II). Values obtained with different assay methods or kits may be different and cannot be used interchangeably. Cerebrospinal Fluid (Cerebrospinal Fluid) 11/27/2023 9:23 AM LOADER HELPER 11/27/2023 1:22 PM LOADER HELPER Anselmo Barrios M.D., Ph.D. LAB BODY FLUIDS AND STOOLS ORDERABLES [facility] [address] [place] [address] [facility] [address] [place] [address] * Immunoglobulin Brock Free Light Chain, CSF (automatically paired with serum) (11/27/2023 9:23 AM LOADER HELPER) Brock Free Light Chain, CSF 0.0565 <0.1000 mg/dL 11/28/2023 8:[address] [facility] Comment: Negative. The kappa free light concentration measured in CSF is lower than the threshold associated with multiple sclerosis. Clinical correlation recommended. ----ADDITIONAL INFORMATION---- This test has been modified from the traveling auditor's instructions. Its performance characteristics were determined by [facility] in a manner consistent with CLIA requirements. This test has not been cleared or approved by the U.S. Food and Drug Administration. A [facility] study published in 2018 with 325 patients ?? suggested that a kappa free light chain concentration in CSF greater than or equal to 0.06 mg/dL has 92% clinical sensitivity in the diagnosis of multiple sclerosis (ref 1). A second, larger [facility] study with 1355 patients published in [...] Ian CRUZ, Rocky GARCIA, et al. CSF Brock Free Light ?? Chains: Cutoff Validation for Diagnosing Multiple Sclerosis. [facility] Proc. 2020; X[address](34)36510-2. doi: 10.1016/j.mayocp.202.09.014. Cerebrospinal Fluid (Cerebrospinal Fluid) 11/27/2023 9:23 AM LOADER HELPER 11/28/2023 6:46 AM LOADER HELPER Anselmo Barrios M.D., Ph.D. LAB BODY FLUIDS AND STOOLS ORDERABLES [facility] [address] [place] [address] [facility] [address] [place] [address] * VA PUNCTURE SPINAL LUMBAR DX (11/27/2023 8:30 AM LOADER HELPER) Narrative MMODAL - 11/27/2023 8:30 AM LOADER HELPER Tana Stanford R.N. ? 11/27/2023 10:08 AM [...] clear Total volume (mL): 7.5 (1 ml Brock and 2.5 ml ROMERO both on wet [...] MAR Action Action Date Dose Rate Site lidocaine (PF) 10 mg/mL (1 %) injection 5 mL (XYLOCAINE) 5 mL, infiltration, Once, On Sun11/27/23 at 0945, For 1 dose Given 11/27/2023 9:17 AM LOADER HELPER 5 mL documented in this encounter Care Teams Manager Of Operations Relationship Specialty Start Date End Date Elsewhere, Pcp PCP - General Internal Medicine 11/22/23 documented as of this encounter
--- OUTSIDE RECORDS SUMMARY | 2023-12-10 14:06 | XMS_ITS | Encounter Summary ---
Author Name Unknown Organization [facility] Address [address] [place] [address] Care Team Providers Care Programmer Or Analyst Name Role Phone Elsewhere, Pcp Primary Care Provider Unavailabl e Encounter Details Date Type Department Care Team (Late st Contact Info) Description 11/26/2023 Clinical Communication Department of Neurology in [place], [place] [address] [place] [phone] Anselmo Barrios M.D., Ph.D. [address] [place] [phone] Social History Tobacco Use Types Packs/Day Years Used Date Smoking Tobacco: Former Cigarettes 0 11/16/1977 - 05/31/2002 Passive Smoke Exposure: Past Smokeless Tobacco: Never Comments:I have not smoked f or 22 years Alcohol Use Standard Drinks/Week Comments Yes 10 (1 standard drink = 0.6 oz pu re alcohol) [facility] Utilities Answer Date Recorded In the past [address] [facility] [employer], gas, oil, or water [employer] threatened to shut off services in your [...] money to buy more. Never true 11/22/19 24 Within the past 12 months, t [...] your living situation today? I have a [facility] place to live 11/22/2023 Sex and Gender Information Value Date Recorded Sex Assigned at Male 11/21/2023 10:59 AM BET TAKER Gender Identity Male 11/21/2023 10:59 AM BET TAKER Sexual Orientation Straight 11/21/2023 10 :59 AM BET TAKER documented as of this encounter Plan of Treatment Not on file documented as of this encounter Visit Diagnoses Not on filedocumented in this encounter Care Teams Programmer Or Analyst Relationship Specialty Start Date End Date Elsewhere, Pcp PCP - General Internal Medicine 11/22/23 documented as of this encounter
--- OUTSIDE RECORDS SUMMARY | 2023-12-10 14:06 | XMS_ITS | Encounter Summary ---
Author Name Unknown Organization [facility] Address [address] [place] [address] Care Team Providers Care Motor Equipment Sergeant Name Role Phone Elsewhere, Pcp Primary Care Provider Unavailabl e Encounter Details Date Type Department Care Team (Late st Contact Info) Description 11/26/2023 Documentation Department of Neurology in [place], [place] [address] [place] [phone] Anselmo Barrios M.D., Ph.D. [address] [place] [phone] Social History Tobacco Use Types Packs/Day Years Used Date Smoking Tobacco: Former Cigarettes 0 11/16/1977 - 05/31/2002 Passive Smoke Exposure: Past Smokeless Tobacco: Never Comments:I have not smoked f or 22 years Alcohol Use Standard Drinks/Week Comments Yes 10 (1 standard drink = 0.6 oz pu re alcohol) [facility] Utilities Answer Date Recorded In the past 12 months has [facility] [employer], gas, oil, or water [employer] threatened to shut off services in your [...] your living situation today? I have a [facility] place to live 11/22/2023 Sex and Gender Information Value Date Recorded Sex Assigned at Male 11/21/2023 10:59 AM ENTEROSTOMAL NURSE Gender Identity Male 11/21/2023 10:59 AM ENTEROSTOMAL NURSE Sexual Orientation Straight 11/21/2023 10 :59 AM ENTEROSTOMAL NURSE documented as of this encounter Progress Notes * Anselmo Barrios M.D., Ph.D. - 11/26/2023 7:57 AM CST Encounter created for purposes of clinical communication. ROSTOMAL NURSE documented in this encounter Plan of Treatment Not on file documented as of this encounter Visit Diagnoses Not on filedocumented in this encounter Care Teams Motor Equipment Sergeant Relationship Specialty Start Date End Date Elsewhere, Pcp PCP - General Internal Medicine 11/22/23 documented as of this encounter
--- OUTSIDE RECORDS SUMMARY | 2023-12-10 14:06 | XMS_ITS | Encounter Summary ---
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 [address] [place] [phone] [facility] Referral ID Status Reason Start Date Expiration Date Visits Re quested Visits Authorized [id number] Closed 10/11/2023 10/10/2026 1 1 Encounter Details Date Type Department Care Team ([facility] st Contact Info) Description 11/29/2023 1:00 PM CHIP TESTER Office Visit Department of Neurology in [place], [place] [address] [place] [phone] Anselmo Barrios M.D., Ph.D. 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 I have a [facility] place to live 11/22/2023 Sex and Gender Information Value Date Recorded Sex Assigned at Male 11/21/2023 10:59 AM CHIP TESTER Gender Identity Male 11/21/2023 10:59 AM CHIP TESTER Sexual Orientation Straight 11/21/2023 10 :59 AM CHIP TESTER documented as of this encounter Progress Notes * Anselmo Barrios M.D., Ph.D. - 11/29/2023 1:00 PM CST Images from the original note were not included. Zackary returned for review of test results and recommendations. Based on the history and examination including neuropsychological assessment, the patient???s clinical diagnosis was confirmed to be: mild cognitive impairment Labs: Result Date Value Ref Range Status 11/26/2023 Genotype: e3/e4 Final TSH, Sensitive Date Value Ref Range Status 11/26/2023 2.2 0.3 - 4.2 mIU/L Final Vitamin B12 Assay, S Date Value Ref Range Status 11/26/2023 390 180 - 914 ng/L Final Comment: B-12 <400; MMA test was performed. Brain MRI: Number of microbleeds: 0 Areas of superficial siderosis: 0 Other clinically significant findings: Incidentally discovered chronic right caudate infarct Brain FDG PET: CSF studies: p-Tau/Abeta42 Date Value Ref Range Status 11/27/2023 0.063 (H) <=0.028 ratio Final Abeta42 Date Value Ref Range Status 11/27/2023 934 >834 pg/mL Final Comment: ----ADDITIONAL INFORMATION---- The testing method is an electrochemiluminescence assay manufactured by [employer] Effective March 28, 2023, a formulation change was implemented in the [employer] Abeta42 reagent (Generation I to Generation II). The [employer] B-Amyloid (1-42) CSF II assay was restandardized using certified reference materials (CRMs) ERM-DA480/-481/-482/[facility]. Internal studies indicate a reduction in measured Abeta42 concentration (an approximate 19% decrease at the reference value) under specified assay collection conditions when using the new reagent formulation. Accordingly, the reference value has been changed from >1026 pg/mL (Gen I) to >834 pg/mL (Gen II). Values obtained with different assay methods or kits may be different and cannot be used interchangeably. Phospho-Tau(181P) Date Value Ref Range Status 11/27/2023 58.6 (H) <=21.6 pg/mL Final Comment: ----ADDITIONAL INFORMATION---- The testing method is an electrochemiluminescence assay manufactured by [employer] Effective March 28, 2023, a formulation change was implemented in the [employer] p-Msm469 reagent (Generation I to Generation II). Internal studies indicate a slight reduction in measured p-Lae597 concentrations under specified assay collection conditions when using the new reagent formulation. Accordingly, the reference value has been modified from < or = 21.7 pg/mL (Gen I) to < or = 21.6 (Gen II). Values obtained with different assay methods or kits may be different and cannot be used interchangeably. Other clinically significant findings: no Biomarker status: Evidence of amyloidosis: yes Modality: CSF biomarkers The patient???s case was reviewed at the [facility] Multidisciplinary Conference on?11/29/2023, and was determined to be eligible for lecanemab treatment. I discussed the diagnosis expected clinical courseand management of Alzheimer's disease. Note that he is already on donepezil 10 mg daily. We also discussed general safety recommendation and future planning. At present he is driving without concerns, I think this is reasonable, however, we discussed that in the future given progressive brain disease he would need on the road driving assessment. They will proceed with prescheduled social work andnursing visit. 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 We reviewed the data from the CLARITY-AD study including that the drug does not cure the disease, nor does it stop or reverse cognitive decline, but that the goal of treatment is to slow progression of cognitive decline. We discussed that if patients treated with lecanemab were to present with stroke-like symptoms, we would recommend an urgent MRI scan. We also discussed the case of fatal hemorrhage associated with tPA in the trial's open-label extension, and that lecanemab treatment should be considered a relative contraindication for tPA or tenecteplase in acute stroke. We additionally discussed that if the patient were to be prescribed a blood- thinning medication in future, the treatment team should be promptly notified due to the possible risk of intracranial bleeding. The patient received pre- and post-test counseling information on APOE testing, which was obtained as part of determining risks and benefits of potential lecanemab treatment. Additional information was provided on the relationship of APOE to Alzheimer???s disease risk, as well as possible implications of testing on eligibility and/or premiums for life, disability, or long-term care insurance, andon other family members including future generations. The patient was found to have one copy of APOE ?4. We discussed that the risk of ARIA with lecanemab treatment is higher in patients with one copy of APOE ?4 compared to those having zero copies. We also reviewed that having one copy of APOE ?4 means that there is a 50 percent chance of passingAPOE ?4 to that person???s biological children. Individuals with one copy of APOE ?4 are at increased lifetime risk for developing Alzheimer???s disease dementia, but having one copy of APOE ?4 is nei ther necessary nor sufficient for developing Alzheimer???s disease or other causes of dementia, andAPOE testing is not currently recommended in clinical care outside of the context of treatment decisions for patients with early symptomatic Alzheimer???s disease. We discussed the risks, benefits and alternatives to lecanemab with the patient and/or decision-maker, including but not limited to: Cerebral edema (brain swelling) Microbleeds (small areas of bleeding in the brain that may raise risk for future bleeds) Ventricular enlargement (loss of brain volume) Neurologic symptoms such as visual disturbances, headaches, nausea/vomiting, and others Seizures Strokes such as larger brain bleeds which lead to neurological disability The patient and/or decision-maker had the opportunity to ask questions, which have been answered totheir satisfaction.They have received a copy of the lecanemab patient education brochure. At this time they wish to proceed with lecanemab infusions. 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
--- OUTSIDE RECORDS SUMMARY | 2023-12-10 14:06 | XMS_ITS | Encounter Summary ---
Author Name Unknown Organization [facility] Address [address] [place] [address] Care Team Providers Care Office Electrician Name Role Phone Elsewhere, Pcp Primary Care Provider Unavailabl e Reason for Visit * Reason Onset Date Comments Pre-visit Intake 11/22/2023 Encounter Details Date Type Department Care Team (Latest Contact Info) Description 11/22/2023 8:30 AM TALLOW MAKER Clinical Communication Virtual Review in [place], [place] [address] [place], [place] [phone] Pre-visit Intake Social History Tobacco Use Types Packs/Day Years Used Date Smoking Tobacco: Former Cigarettes 0 11/16/1977 - 05/31/2002 Passive Smoke Exposure: Past Smokeless Tobacco: Never Comments:I have not smoked f or 22 years Alcohol Use Standard Drinks/Week Comments Yes 10 (1 standard drink = 0.6 oz pu re alcohol) [facility] Utilities Answer Date Recorded In the past 12 months has e [employer], gas, oil, or water [employer] threatened to shut off services in your [...] your living situation today? I have a [facility] place to live 11/22/2023 Sex and Gender Information Value Date Recorded Sex Assigned at Male 11/21/2023 10:59 AM TALLOW MAKER Gender Identity Male 11/21/2023 10:59 AM TALLOW MAKER Sexual Orientation Straight 11/21/2023 10 :59 AM TALLOW MAKER documented as of this encounter Plan of Treatment Not on file documented as of this encounter Visit Diagnoses Not on filedocumented in this encounter Care Teams Office Electrician Relationship Specialty Start Date End Date Elsewhere, Pcp PCP - General Internal Medicine 11/22/23 documented as of this encounter
--- OUTSIDE RECORDS SUMMARY | 2023-12-10 14:06 | XMS_ITS | Encounter Summary ---
Author Name Unknown Organization [facility] Address [address] [place] [address] Care Team Providers Care Drywall Taper Helper Name Role Phone Unavailable Primary Care Provider Unavailabl e Encounter Details Date Type Department Care Team (Late st Contact Info) Description 10/09/2023 Clinical Communication Department of Neurology in [place], [place] [address] [place] [phone] Provider, Unknown Social History Tobacco Use Types Packs/Day Years Used Date Smoking Tobacco: Never Assessed Nutrition Answer Date Recorded Nutrition: EVOO Fat Source Unknown 09/12 Nutrition: Servings of Fruits/Vegetables per Day Not on file 09/12/2023 Dental Answer Date Recorded Dental: Regular Dentist Unknown 09/12/20 Sex and Gender Information Value Date Recorded Sex Assigned at Male 11/21/2023 10:59 AM CORRECTION OFFICER [employer] Gender Identity Male 11/21/2023 10:59 AM CORRECTION OFFICER [employer] Sexual Orientation Straight 11/21/2023 10 :59 AM CORRECTION OFFICER [employer] documented as of this encounter Plan of Treatment Not on file documented as of this encounter Visit Diagnoses Not on filedocumented in this encounter
--- OUTSIDE RECORDS SUMMARY | 2023-12-10 14:06 | XMS_ITS | Encounter Summary ---
Author Name Unknown Organization [facility] Address [address] [place] [id number] Care Team Providers Care Chemical Production Machine Operator Name Role Phone Elsewhere, Pcp Primary Care Provider Unavailabl e Encounter Details Date Type Department Care Team (Late st Contact Info) Description 11/26/2023 12:30 PM EXERCISE PHYSIOLOGY PROFESSOR Lab Department of Laboratory Medicine and Pathology, [facility], in [place], [place] [address] [place] [phone] Anselmo Barrios M.D., Ph.D. [address] [place] [phone] Unspecified Dementia Unspecified Severity Without Behavioral Disturbance 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) Social History Tobacco Use Types Packs/Day Years Used Date Smoking Tobacco: Former Cigarettes 0 11/16/1977 - 05/31/2002 Passive Smoke Exposure: Past Smokeless Tobacco: Never Comments:I have not smoked f or 22 years Alcohol Use Standard Drinks/Week Comments Yes 10 (1 standard drink = 0.6 oz pu re alcohol) [facility] Utilities Answer Date Recorded In the past 12 months has [employer], gas, oil, or water [employer] threatened to shut off services in your [...] your living situation today? I have a [facility] place to live 11/22/2023 Sex and Gender Information Value Date Recorded Sex Assigned at Male 11/21/2023 10:59 AM EXERCISE PHYSIOLOGY PROFESSOR Gender Identity Male 11/21/2023 10:59 AM EXERCISE PHYSIOLOGY PROFESSOR Sexual Orientation Straight 11/21/2023 10 :59 AM EXERCISE PHYSIOLOGY PROFESSOR documented as of this encounter Plan of Treatment Not on file documented as of this encounter Procedures Procedure Name Priority Date/Time Associated Diagnosis Comments ADDITIONAL SAMPLE FOR REFLEX OLIGS Routine 11/26/2023 11:30 AM EXERCISE PHYSIOLOGY PROFESSOR Unspecified Dementia Unspecified Severity Without Behavioral Disturbance 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) LA ORGANIC ACID 1 QUANT 2 Routine 11/26/2023 11:30 AM EXERCISE PHYSIOLOGY PROFESSOR THYROID FUNCTION CASCADE, S Routine 11/26/2023 11:30 AM EXERCISE PHYSIOLOGY PROFESSOR Unspecified Dementia Unspecified Severity Without Behavioral Disturbance 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) PERNICIOUS ANEMIA CASCADE, S Routine 11/26/2023 11:30 AM EXERCISE PHYSIOLOGY PROFESSOR Unspecified Dementia Unspecified Severity Without Behavioral Disturbance 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) APOLIPOPROTEIN E GENOTYPING, B Routine 11/26/2023 11:30 AM EXERCISE PHYSIOLOGY PROFESSOR Unspecified Dementia Unspecified Severity Without Behavioral Disturbance 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) ACTIVATED PARTIAL THROMBOPLASTIN TIME (APTT), P Routine 11/26/2023 11:30 AM EXERCISE PHYSIOLOGY PROFESSOR Unspecified Dementia Unspecified Severity Without Behavioral Disturbance 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) PROTHROMBIN TIME (PT), P Routine 11/26/2023 11:30 AM EXERCISE PHYSIOLOGY PROFESSOR Unspecified Dementia Unspecified Severity Without Behavioral Disturbance 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) CBC WITH DIFFERENTIAL, B Routine 11/26/2023 11:30 AM EXERCISE PHYSIOLOGY PROFESSOR Unspecified Dementia Unspecified Severity Without Behavioral Disturbance 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) COMPREHENSIVE METABOLIC PANEL, S/P Routine 11/26/2023 11:30 AM EXERCISE PHYSIOLOGY PROFESSOR Unspecified Dementia Unspecified Severity Without Behavioral Disturbance 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) documented in this encounter Results * Methylmalonic Acid (MMA), Quantitative, Serum (11/26/2023 11:30 AM EXERCISE PHYSIOLOGY PROFESSOR) Methylmalonic Acid, QN, S 0.14 <=0.40 nmol/mL 11/28/2023 1:26 PM EXERCISE PHYSIOLOGY PROFESSOR DTL Comment: No cellular B-12 deficiency. ----ADDITIONAL INFORMATION---- This test was developed and its performance characteristics determined by [facility] in a manner consistent with CLIA requirements. This test has not been cleared or approved by the U.S. Food and Drug Administration. Blood 11/26/2023 11:3 0 AM EXERCISE PHYSIOLOGY PROFESSOR 11/26/2023 4:54 PM EXERCISE PHYSIOLOGY PROFESSOR Anselmo Barrios M.D., Ph.D. LAB BLOOD NON A DD-ON [facility] [address] [place] [address], [facility] DTL [address] [place] [address] * Additional Sample for Reflex Oligoclonal Banding (11/26/2023 11:30 AM EXERCISE PHYSIOLOGY PROFESSOR) Additional sample for reflex OLIGS Collected DEFAULT 11/27/2023 6:29 AM EXERCISE PHYSIOLOGY PROFESSOR [facility] Blood (Blood, Venous) 11/26/2023 11:30 AM EXERCISE PHYSIOLOGY PROFESSOR 11/27/2023 6:29 AM EXERCISE PHYSIOLOGY PROFESSOR Anselmo Barrios M.D., Ph.D. LAB BLOOD NON A DD-ON [facility] [address] [place] [address] [facility] [address] [place] [address] * Apolipoprotein E Genotyping (11/26/2023 11:30 AM EXERCISE PHYSIOLOGY PROFESSOR) Pathologist [facility] Result Summary COMPLEX (SEE RESULT AND INTERPRETATION) 11/28/2023 10:26 AM EXERCISE PHYSIOLOGY PROFESSOR DTL Result Genotype: e3/e4 10:26 AM EXERCISE PHYSIOLOGY PROFESSOR DTL Reason for Referral Test for the presence of the e2, e3, and e4 alleles in the APOE gene. 11/28/2023 10:26 AM EXERCISE PHYSIOLOGY PROFESSOR DTL Specimen WB Whole Blood 11/28/2023 10:26 AM EXERCISE PHYSIOLOGY PROFESSOR DTL Released By Sd Erazo, Ph.D. 11/28/19 10:26 AM EXERCISE PHYSIOLOGY PROFESSOR DTL Interpretation The e4 allele leads to [...] disease is not currently recommended by the [employer] due to limited clinical utility and poor predictive value (3, 4). Less common APOE variants that do not alter a restriction site for HhaI will not be detected by this assay. REFERENCES 1. Anai Int Med. 2004, 141:137-47 (PMID [id number]) 2. KITTY 1997; 278:6105-4167 (PMID [id number]) 3. Janine Med 2011; 13:597-605 (PMID [id number]) 4. [employer] 2014May 07. Retrieved from www.choosingwise ly.org/societies /faroese-colleg o-nf-gsavkho -hcedkdid-kfh-vx nomics/) 11/28/2023 10:26 AM EXERCISE PHYSIOLOGY PROFESSOR DTLewis Comment: ----ADDITIONAL INFORMATION---- A PCR-based assay, including Plastic Block Boiler Reliner I digestion of the amplified product, was utilized to identify the three common APOE alleles (epsilon2, epsilon3, and epsilon4). An online research opportunity called GenomeTarenaneBioaxial (genomeJamdat Mobile.org), a project of [employer], is available for the recipient of this genetic test. This patient registry collects de-identified genetic and health information to advance the knowledge of genetic variants. [facility] is a collaborator of [employer]. This may not be applicable for all [...] allogenic donors will interfere with testing. Call [facility] for instructions for testing patients who [...] developed and its performance characteristics determined by [facility] in a manner consistent with CLIA requirements. This test has not been cleared or approved by the U.S. Food and Drug Administration. Blood (Blood, Venous) 11/26/2023 11:30 AM EXERCISE PHYSIOLOGY PROFESSOR 11/26/2023 11:56 AM EXERCISE PHYSIOLOGY PROFESSOR Anselmo Barrios M.D., Ph.D. LAB GENETIC OSMAN TING Performing Organization Address City/[facility] Co de Phone Number [facility] [address] [place] [address], [facility] DT 200 [facility] 200 [place] [address] * Pernicious Anemia Kerr (11/26/2023 11:30 AM EXERCISE PHYSIOLOGY PROFESSOR) Pathologist [facility] Vitamin B12 Assay, S 390 180 - 914 ng/L 11/26/2023 4:54 PM EXERCISE PHYSIOLOGY PROFESSOR [facility] Comment:B-12 <400; MMA test was performed. Blood (Blood, Venous) 11/26/2023 11:30 AM EXERCISE PHYSIOLOGY PROFESSOR 11/26/2023 3:07 PM EXERCISE PHYSIOLOGY PROFESSOR Anselmo Barrios M.D., Ph.D. LAB BLOOD NON A DD-ON Performing Organization Address [facility] de Phone Number [facility] [address] [place] [address] [facility] [address] [place] [address] * Thyroid Function Kerr (11/26/2023 11:30 AM EXERCISE PHYSIOLOGY PROFESSOR) Pathologist [facility] TSH, Sensitive 2.2 0.3 - 4.2 mIU/L 11/26/2023 12:31 PM EXERCISE PHYSIOLOGY PROFESSOR DT Blood (Blood, Venous) 11/26/2023 11:30 AM EXERCISE PHYSIOLOGY PROFESSOR 11/26/2023 11:52 AM EXERCISE PHYSIOLOGY PROFESSOR Anselmo Barrios M.D., Ph.D. LAB BLOOD ADD-O N Performing Organization Address City/[facility]/ZIP Co de Phone Number [facility] [address] [place] [address], [facility] DTL [facility] [address] * Comprehensive Metabolic Panel (11/26/2023 11:30 AM EXERCISE PHYSIOLOGY PROFESSOR) [facility] Potassium, S 4.3 3.6 - 5.2 mmol/L 11/26/2023 12:31 PM EXERCISE PHYSIOLOGY PROFESSOR DTL Sodium, S 140 135 - 145 mmol/L 11/26/2023 12:31 PM EXERCISE PHYSIOLOGY PROFESSOR DTL Chloride, S 105 98 - 107 mmol/L 11/26/2023 12:31 PM EXERCISE PHYSIOLOGY PROFESSOR DTL Bicarbonate, S 27 22 - 29 mmol/L 11/26/2023 12:31 PM EXERCISE PHYSIOLOGY PROFESSOR DTL Anion Gap 8 7 - 15 11/26/2023 12:31 PM EXERCISE PHYSIOLOGY PROFESSOR DTL BUN (Blood Urea Nitrogen), S 13 8 - 24 mg/dL 11/26/2023 12:31 PM EXERCISE PHYSIOLOGY PROFESSOR DTL Creatinine 0.99 0.74 - 1.35 mg/dL 11/26/2023 12:31 PM EXERCISE PHYSIOLOGY PROFESSOR DTL Estimated GFR (eGFR) 83 >=60 mL/min/BS A 11/26/2023 12:31 PM EXERCISE PHYSIOLOGY PROFESSOR DTL Comment: Estimated GFR calculated using the 2020 CKD_EPI creatinine equation. Calcium, Total, S 9.3 8.8 - 10.2 mg/dL 11/26/2023 12:31 PM EXERCISE PHYSIOLOGY PROFESSOR DTL Glucose, S 98 70 - 140 mg/dL 11/26/2023 12:31 PM EXERCISE PHYSIOLOGY PROFESSOR DTL Protein, Total, S 7.3 6.3 - 7.9 g/dL 11/26/2023 12:31 PM EXERCISE PHYSIOLOGY PROFESSOR DTL Albumin, S 4.3 3.5 - 5.0 g/dL 11/26/2023 12:31 PM EXERCISE PHYSIOLOGY PROFESSOR DTL Aspartate Aminotransferase (AST), S 28 8 - 48 U/L 11/26/2023 12:31 PM EXERCISE PHYSIOLOGY PROFESSOR DTL Alkaline Phosphatase, S 119 40 - 129 U/L 11/26/2023 12:31 PM EXERCISE PHYSIOLOGY PROFESSOR DTL Alanine Aminotransferase (ALT), S 32 7 - 55 U/L 11/26/2023 12:31 PM EXERCISE PHYSIOLOGY PROFESSOR DTL Bilirubin, Total, S 1.2 0.0 - 1.2 mg/dL 11/26/2023 12:31 PM EXERCISE PHYSIOLOGY PROFESSOR DTL Blood (Blood, Venous) 11/26/2023 11:30 AM EXERCISE PHYSIOLOGY PROFESSOR 11/26/2023 11:52 AM EXERCISE PHYSIOLOGY PROFESSOR Anslemo Barrios M.D., Ph.D. LAB BLOOD ADD-O N Performing Organization Address City/[facility] Co de Phone Number [facility] [address] [place], [place] [address] [address] [place] [address] * APTT (Activated Partial Thromboplastin Time) (11/26/2023 11:30 AM EXERCISE PHYSIOLOGY PROFESSOR) Activated Partial Thrombopl Time, P 28 25 - 37 sec 11/26/2023 12:05 PM EXERCISE PHYSIOLOGY PROFESSOR DTL Blood (Blood, Venous) 11/26/2023 11:30 AM EXERCISE PHYSIOLOGY PROFESSOR 11/26/2023 11:42 AM EXERCISE PHYSIOLOGY PROFESSOR Anselmo Barrios M.D., Ph.D. LAB BLOOD ADD-O N Performing Organization Address [facility] Co de Phone Number [facility] [address] [place], [place] [address] [address] [place] [address] * Prothrombin Time (PT) (11/26/2023 11:30 AM EXERCISE PHYSIOLOGY PROFESSOR) Prothrombin Time, P 11.2 9.4 - 12.5 sec 11/26/2023 12:05 PM EXERCISE PHYSIOLOGY PROFESSOR DTL INR 1.0 0.9 - 1.1 11/26/2023 12:05 PM EXERCISE PHYSIOLOGY PROFESSOR DTL Comment: ----ADDITIONAL INFORMATION---- Standard intensity warfarin therapeutic range: 2.0 to 3.0 ?? High intensity warfarin therapeutic range: 2.5 to 3.5 Blood (Blood, Venous) 11/26/2023 11:30 AM EXERCISE PHYSIOLOGY PROFESSOR 11/26/2023 11:42 AM EXERCISE PHYSIOLOGY PROFESSOR Anselmo Barrios M.D., Ph.D. LAB BLOOD ADD-O N Performing Organization Address City/[facility]/ZIP Co de Phone Number [facility] [address] [place], [place] [id number] [place] [address] [facility] [address] [place] [address] * CBC with Differential, Blood (11/26/2023 11:30 AM EXERCISE PHYSIOLOGY PROFESSOR) Hemoglobin 14.7 13.2 - 16.6 g/dL 11/26/2023 11:49 AM EXERCISE PHYSIOLOGY PROFESSOR DTL Hematocrit 43.3 38.3 - 48.6 % 11/26/2023 11:49 AM EXERCISE PHYSIOLOGY PROFESSOR DTL Erythrocytes 4.71 4.35 - 5.65 x10(12)/L 11/26/2023 11:49 AM EXERCISE PHYSIOLOGY PROFESSOR DTL MCV 91.9 78.2 - 97.9 fL 11/26/2023 11:49 AM EXERCISE PHYSIOLOGY PROFESSOR DTL RBC Distrib Width 12.0 11.8 - 14.5 % 11/26/2023 11:49 AM EXERCISE PHYSIOLOGY PROFESSOR DTL Platelet Count 209 135 - 317 x10(9)/L 11/26/2023 11:49 AM EXERCISE PHYSIOLOGY PROFESSOR DTL Leukocytes 6.7 3.4 - 9.6 x10(9)/L 11/26/2023 11:49 AM EXERCISE PHYSIOLOGY PROFESSOR DTL Neutrophils 4.09 1.56 - 6.45 x10(9)/L 11/26/2023 11:49 AM EXERCISE PHYSIOLOGY PROFESSOR DHPM Lymphocytes 1.89 0.95 - 3.07 x10(9)/L 11/26/2023 11:49 AM EXERCISE PHYSIOLOGY PROFESSOR DTL Monocytes 0.49 0.26 - 0.81 x10(9)/L 11/26/2023 11:49 AM EXERCISE PHYSIOLOGY PROFESSOR DTL Eosinophils 0.16 0.03 - 0.48 x10(9)/L 11/26/2023 11:49 AM EXERCISE PHYSIOLOGY PROFESSOR DTL Basophils 0.05 0.01 - 0.08 x10(9)/L 11/26/2023 11:49 AM EXERCISE PHYSIOLOGY PROFESSOR DTL Blood (Blood, Venous) 11/26/2023 11:30 AM EXERCISE PHYSIOLOGY PROFESSOR 11/26/2023 11:42 AM EXERCISE PHYSIOLOGY PROFESSOR Anselmo Barrios M.D., Ph.D. LAB BLOOD ADD-O N [facility] [address] [place] [address], [facility] DTL [facility] [place] [address] [place] [address] [facility] [address] [place] [address] documented in this encounter Visit Diagnoses Diagnosis Unspecified Dementia Unspecified Severity Without Behavioral Disturbance 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) documented in this encounter Care Teams Chemical Production Machine Operator Relationship Specialty Start Date End Date Elsewhere, Pcp PCP - General Internal Medicine 11/22/23 documented as of this encounter
--- OUTSIDE RECORDS SUMMARY | 2023-12-10 14:06 | XMS_ITS | Encounter Summary ---
Author Name Unknown Organization [facility] Address [address] [place] [address] Care Team Providers Care Warehouse Hand Name Role Phone Unavailable Primary Care Provider Unavailabl e Encounter Details Date Type Department Care Team (Late st Contact Info) Description 10/10/2023 Clinical Communication Department of Neurology in [place], [place] [address] [place] [address] Provider, Unknown Social History Tobacco Use Types Packs/Day Years Used Date Smoking Tobacco: Never Assessed Nutrition Answer Date Recorded Nutrition: EVOO Fat Source Unknown 09/12 Nutrition: Servings of Fruits/Vegetables per Day Not on file 09/12/2023 Dental Answer Date Recorded Dental: Regular Dentist Unknown 09/12/20 Sex and Gender Information Value Date Recorded Sex Assigned at Male 11/21/2023 10:59 AM TOEING STOCKINGS Gender Identity Male 11/21/2023 10:59 AM TOEING STOCKINGS Sexual Orientation Straight 11/21/2023 10 :59 AM TOEING STOCKINGS documented as of this encounter Plan of Treatment Not on file documented as of this encounter Visit Diagnoses Not on filedocumented in this encounter
--- OUTSIDE RECORDS SUMMARY | 2023-12-10 14:06 | XMS_ITS | Encounter Summary ---
Author Name Unknown Organization [facility] Address [address] [place] [address] Care Team Providers Care Exam Proctor Name Role Phone Elsewhere, Pcp Primary Care Provider Unavailabl e Reason for Visit * Outpatient (Routine) - Closed Specialty Diagnoses / Procedures Referred By Contenma t Referred To Contact Social Work Diagnoses Unspecified Dementia Unspecified Severity Without Behavioral Disturbance 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) Anselmo Barrios M.D., Ph.D. [address] [place] [phone] [facility] Referral ID Status Reason Start Date Expiration Date Visits Re quested Visits Authorized [id number] Closed 10/11/2023 10/10/2024 1 1 Encounter Details Date Type Department Care Team (Late st Contact Info) Description 11/29/2023 3:30 PM BOARD FINISHER Clinical Support Department of Neurology in [place], [place] [address] [place] [phone] Anselmo Barrios M.D., Ph.D. [address] [place] [phone] Ida Calle L.I.C.SAlvino., M.S.W. [address] [place] [phone] Unspecified Dementia Unspecified Severity Without Behavioral Disturbance 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) Social History Tobacco Use Types Packs/Day Years Used Date Smoking Tobacco: Former Cigarettes 0 11/16/1977 - 05/31/2002 Passive Smoke Exposure: Past Smokeless Tobacco: Never Comments:I have not smoked f or 22 years Alcohol Use Standard Drinks/Week Comments Yes 10 (1 standard drink = 0.6 oz pu re alcohol) [facility] Utilities Answer Date Recorded In the past [...] your living situation today? I [facility] to [facility] 11/22/2023 Sex and Gender Information Value Date Recorded Sex Assigned at Male 11/21/2023 10:59 AM BOARD FINISHER Gender Identity Male 11/21/2023 10:59 AM BOARD FINISHER Sexual Orientation Straight 11/21/2023 10 :59 AM BOARD FINISHER documented as of this encounter Consult Notes * Ida Calle L.I.C.SAlvino., M.S.W. - 11/29/2023 3:30 PM CST Psychosocial Assessment SUBJECTIVE DEMOGRAPHIC INFORMATION Referral Source: Service/Provider Referral Reason: Psychosocial Assessment and [facility] Patient Support Resources Person(s) present during interview: Patient and his , Mechelle Previous Psychosocial Assessment : No Primary care clinic and provider: ELSEWHERE, PCP They were advised of the various topics that will be assessed during this evaluation. They consented to proceed. The information provided in the assessment is based on review of the medical record aswell as the interview. They were advised that the content of this interview will be shared with the health care team. It was discussed that staff are mandated reporters and they reported understanding. Senior Linkage Line information was provided with resources. HISTORY OF PRESENT ILLNESS Unspecified Dementia Unspecified Severity Without Behavioral Disturbance Psychotic disturbance MoodDisturbance And Anxiety (HCC) F03.90 SOCIAL HISTORY Family / Household: Patient lives in a single family home. He lives with his and 2 dogs. They have 2 sons, both of whom live within 20 minutes of them. They have 4 grandchildren ages 17, 13, 11,and 7. Employment: Retired SDOH Utilities: None SDOH Food Insecurity: None SDOH Housing: None SDOH Intimate Partner Violence: None Psychosocial Risk Factors impacting the patient: none Abuse, Neglect, Maltreatment, Trauma: Current: Patient denied. ENVIRONMENTAL SUPPORTS Current Living Situation: Patient lives in a split level home. There are steps inside and he has noissues with them. Anticipated modifications to the patient's home environment: None FUNCTIONAL STATUS (ADL's and IADL's) Dressing: independent Feeding: independent Bathing: independent Grooming: independent Toileting: independent Transfer to/from Bed, Chair, Etc.: independent Mobility: independent Meal Prep: independent Medication Setup/Administration: independent Telephone Use: independent Housekeeping: independent Shopping: independent Managing Finances: independent It is anticipated that the patient will need assistance with None ASSISTIVE DEVICES Patient has the following equipment: none Patient anticipates potentially needing the following additional equipment: none Transportation needs: independent to drive and support from family/friends FORMAL AND INFORMAL RESOURCES Patient does not have formal services at this time and identifies his informal support as being primarily his . He does have support from his sons, a close friend and fgbf-ywapql-jw-law. FINANCES/INSURANCE Primary insurance: [employer] MEDICARE ADVANTAGE [place] PPO Secondary insurance: NA Financial concerns: No ADVANCE DIRECTIVES Not on file OBJECTIVE Mental Health Per chart review patient indicated some new depression/anxiety due to MCI concerns. In this visit patient he does endorse anxiety/depression, but he takes medications for this. He denied coping or mood concerns and denied feeling more down/depressed/hopeless. He reports some occasional alcohol use and does not use other substances. Suicide Risk and Safety Risk Assessment: Suicidal: No Homicidal: No Current Stressors No additional stressors outside of diagnosis. 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 Other strengths include family support, attitude of self and family, motivation, level of function,and insight. ASSESSMENT / PLAN DISCUSSION Patient was seen in clinic as part of eligibility for Lecanemab. Also present was his . Patient lives in a single family home. It is a split level home. There are steps inside and he has no issues with them. He lives with his and 2 dogs. They have 2 sons, both of whom live within 20 minutes of them. They have 4 grandchildren ages 17, 13, 11, and 7. He does not use any durable medical equipment and is independent in all activities of daily living. Patient does not have formal services at this time and identifies his informal support as being primarily his . He does have support from his sons, a close friend and mngs-wooclk-qt-law. Per chart review patient indicated some new depression/anxiety due to MCI concerns. In this visit patient he does endorse anxiety/depression, but he takes medications for this. He denied coping or mood concerns and denied feeling more down/depressed/hopeless. He denied abuse/neglect concerns as well as any thoughts of harming himself or others. He reports some occasional alcohol use and does not use other substances. 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 He notes that he is excited and nervous to start treatment and endorsed some anxiety ar ound the diagnosis as he watched his brother go through it. Social work discussed the [facility] Patient Support Application and the patient signed this to check candidacy for medication assistance. This will be faxed. Resource list along with Mediterranean Diet information was provided. They did not have additional questions at this time and will see the education nurses tomorrow. IMPRESSION Patient is a pleasant 68 year old male. 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 He displayed appropriate eye contact and his volume, affect and rate of speech were within normal limits. He appeared to be a reliable and forthcoming historian and seemed to be coping appropriately. He appropriately joked with social work as well. He and his asked appropriate and well thought out questions and were in agreement with the plan below. INTERVENTIONS Psychosocial assessment, active and reflective listening, rapport building, education on role of social work, supportive counseling, empathetic listening, [facility] Patient Support Application. PLAN Social work will send in the completed [facility] Patient Support Application Social work will remain available if questions/concerns arise Face to face time (for billing purposes) 90 minutes total time, 60 minutes spent in counseling withpatient and patient's family. Ludy Michel, M.S.W. 11/29/2023 D FINISHER documented in this encounter Plan of Treatment Not on file documented as of this encounter Visit Diagnoses Diagnosis Unspecified Dementia Unspecified Severity Without Behavioral Disturbance 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) documented in this encounter Care Teams Exam Proctor Relationship Specialty Start Date End Date Elsewhere, Pcp PCP - General Internal Medicine 11/22/23 documented as of this encounter
--- OUTSIDE RECORDS SUMMARY | 2023-12-10 14:07 | XMS_ITS | Encounter Summary ---
Author Name Unknown Organization [facility] Address [address] [place] [address] Care Team Providers Care Taker Off Name Role Phone Jamarcus Cordero APRN, CNP Primary Care Provid er Encounter Details Date Type Department Care Team Description 04/20/2023 9:50 AM CDT Lab Visit [facility] [address] [place], [place] [phone] Essential hypertension (HRC); Pre-diabetes; Mixed hyperlipidemia (HRC); Screening for prostate cancer Social History Tobacco Use Types Packs/Day Years Used Date Smoking Tobacco: Former Cigarettes 1 20 0 06/06/1980 - 06/06/2000 Smokeless Tobacco: Never Comments:Quit smoking: Alcohol Use Standard Drinks/Week Comments Yes 6 (1 standard drink = 0.6 oz pure alcohol) average 6 beers a week, never wine, occasionally drinks PHQ-2 Answer Date Recorded PHQ-2 Score 0 04/20/2023 Sex and Gender Information Value Date Recorded Sex Assigned at Not on file Gender Identity Not on file Sexual Orientation Not on file documented as of this encounter Plan of Treatment Not on file documented as of this encounter Procedures Procedure Name Priority Date/Time Associated Diagnosis Comments LIPID PANEL & DIRECT LDL (IF NEEDED) Routine 04/20/2023 9:52 AM CDT Mixed hyperlipidemia (HRC) CREATININE / GFR Routine 04/20/2023 9:52 AM CDT Essential hypertension (HRC) PROSTATIC SPECIFIC ANTIGEN(SCREEN) Routine 04/20/2023 9:52 AM CDT Screening for prostate cancer HGB A1C Routine 04/20/2023 9:52 AM CDT Pre-diabetes ALT (SGPT) Routine 04/20/2023 9:52 AM CDT Mixed hyperlipidemia (HRC) POTASSIUM Routine 04/20/2023 9:52 AM CDT Essential hypertension (HRC) GLUCOSE Routine 04/20/2023 9:52 AM CDT Pre-diabetes documented in this encounter Results * Prostatic Specific Antigen (Screen) (04/20/2023 9:52 AM CDT) Prostatic Specific Antigen 0.5 0.0 - 4.0 ng/mL 04/20/2023 2:26 PM CDT [facility] Blood Venipuncture / Unknown 04/20/2023 9:52 AM CDT 04/20/2023 9:52 AM CDT Narrative [facility] - 04/20/2023 2:26 PM CDT The Nieto PSA Chemiluminescent immunoassay is used. Results obtained with different test methods or kits cannot be used interchangeably. Jamarcus Cordero APRN, RIKA LAB_1 [facility] [address] * Lipid Panel and Direct LDL(If Needed) (04/20/2023 9:52 AM CDT) Cholesterol 135 0 - 199 mg/dL 04/20/2023 10:40 AM CDT [facility] Triglyceride 72 <=149 mg/dL 04/20/2023 10:40 AM CDT [facility] HDL Cholesterol 47 >=40 mg/dL 10:40 AM T [facility] LDL, Calculated 74 <130 mg/dL 10:40 AM T [facility] Non HDL Chol, Calculated 88 <=159 mg/dL 04/20/2023 10:40 AM T [facility] Cholesterol/HDL Ratio 2.9 04/20/2023 10:40 AM T [facility] Hours Fasting 12 04/20/2023 10:40 AM T [facility] Blood Venipuncture / Unknown 04/20/2023 9:52 AM CDT 04/20/2023 9:52 AM CDT Jamarcus Cordero APRN, CNP LAB_1 Performing Organization Address [facility] Phone Number [facility] [address] [place] [address], [facility] [phone] * ALT (SGPT) (04/20/2023 9:52 AM CDT) ALT (SGPT) 22 <=55 U/L 04/20/2023 10:40 AM T [facility] Blood Venipuncture / Unknown 04/20/2023 9:52 AM CDT 04/20/2023 9:52 AM CDT Jamarcus Cordero APRN, CNP LAB_1 Performing Organization Address [facility] Phone Number [facility] [address] [place] [phone], [facility] [phone] * Glucose (04/20/2023 9:52 AM CDT) Glucose 91 70 - 100 mg/dL 04/20/2023 10:40 AM T [facility] Comment:The given reference range is for the fasting state. Non-fasting reference range for glucose is 70 - 180 mg/dL. Hours Fasting 12 04/20/2023 10:40 AM T [facility] Blood Venipuncture / Unknown 04/20/2023 9:52 AM CDT 04/20/2023 9:52 AM CDT Jamarcus Cordero APRN, CNP LAB_1 Performing Organization Address [facility]/ZIP Co de Phone Number [facility] [address] [place] [address], [facility] [phone] * Hgb A1C (04/20/2023 9:52 AM CDT) Pathologist [facility] Hemoglobin A1C (Rapid) 5.2 <=5.6 % 04/20/2023 10:16 AM CDT [facility] Estimated Average Glucose (Calc) 103 < 117 mg/dL 04/20/2023 10:16 AM CDT [facility] Comment:Estimated average gl ucose (eAG) converts A1c into glucose units (mg/dL) and estimates average glucose over the past approximately 3 months. The eAG reference interval (<117 mg/dL) corresponds to an A1c of <5.7%. Blood Venipuncture / Unknown 04/20/2023 9:52 AM CDT 04/20/2023 9:52 AM CDT Narrative [facility] - 04/20/2023 10:16 AM CDT The test method used for this Hemoglobin A1c result can experience interference from elevated hemoglobin and other hemoglobin variants. In patients with results that do not correlate clinically, contact the lab for further direction. Jamarcus Cordero APRN, CNP LAB_1 Performing Organization Address [facility] Co de Phone Number [facility] [address] [place] [address], [facility] [phone] * Creatinine/GFR (04/20/2023 9:52 AM CDT) [facility] Creatinine 0.90 0.73 - 1.18 mg/dL 04/20/2023 10:40 AM CDT [facility] GFR, Estimated >60 >60 mL/min/1.7 3m2 04/20/2023 10:40 AM CDT [facility] Blood Venipuncture / Unknown 04/20/2023 9:52 AM CDT 04/20/2023 9:52 AM CDT Fortino Milian MD LAB_1 Performing Organization Address [facility]/ZIP Co de Phone Number [facility] [address] [place] [address], [facility] [phone] * Potassium (04/20/2023 9:52 AM CDT) Potassium 4.3 3.5 - 5.1 mmol/L 04/20/2023 10:40 AM CDT [facility] Blood Venipuncture / Unknown 04/20/2023 9:52 AM CDT 04/20/2023 9:52 AM CDT Fortino Milian MD LAB_1 [facility] [address] [place] [address], [facility] [phone] documented in this encounter Visit Diagnoses Diagnosis Essential hypertension (HRC) Unspecified essential hypertension Pre-diabetes Other abnormal glucose Mixed hyperlipidemia (HRC) Mixed hyperlipidemia Screening for prostate cancer Special screening for malignant neoplasm of prostate documented in this encounter Care Teams Taker Off Relationship Specialty Start Date End Date Jamarcus Cordero, ERICA, FORESTRY SUPPORT SPECIALIST [address] [place] [place] [address] PCP - General Nurse Practitioner 10/08/19 documented as of this encounter
--- OUTSIDE RECORDS SUMMARY | 2023-12-10 14:07 | XMS_ITS | Encounter Summary ---
Author Name Unknown Organization [facility] Address [address] [place] [address] Care Team Providers Care Allergist Immunologist Name Role Phone Jamarcus Cordero APRN, CNP Primary Care Provid er Reason for Visit * Reason Comments Refill Encounter Details Date Type Department Care Team Description 07/28/2023 [facility]ill [facility] [address] [place], [place] [phone] Fortino Milian MD [address], [place] [phone] Refill Social History Tobacco Use Types Packs/Day Years [...] as of this encounter Visit Diagnoses Diagnosis Essential hypertension (HRC) Unspecified essential hypertension documented in this encounter Care Teams Allergist Immunologist Relationship Specialty Start Date End Date Jamarcus [place] CNP [address] [address] [place] [address] PCP - General Nurse Practitioner 10/08/19 documented as of this encounter
--- OUTSIDE RECORDS SUMMARY | 2023-12-10 14:07 | XMS_ITS | Encounter Summary ---
Author Name Unknown Organization [facility] Address [address] [place] [address] Care Team Providers Care Blood Bank Calendar Control Clerk Name Role Phone Jamarcus Cordero APRN, CNP Primary Care Provid er Reason for Visit * Reason Comments Refill Encounter Details Date Type Department Care Team Description 08/06/2023 Refill [facility] [address] [place], [place] [address] Fortino Milian MD [address] [place], [place] [phone] Refill Social History Tobacco Use Types Packs/Day [...] on filedocumented in this encounter Care Teams Blood Bank Calendar Control Clerk Relationship Specialty Start Date End Date Jamarcus Cordero APRN, CNP [address] [address] [id number] PCP - General Nurse Practitioner 10/08/19 documented as of this encounter
--- OUTSIDE RECORDS SUMMARY | 2023-12-10 14:07 | XMS_ITS | Encounter Summary ---
Author Name Unknown Organization [facility] Address [address] [address] Care Team Providers Care Guardian Ad Litem Name Role Phone Jamarcus Cordero APRN, CNP Primary Care Provid er Reason for Visit * Procedure/Equipment (Routine) - Incomplete Specialty Diagnoses / Procedures Referred By Arlen zamorano Referred To Contact Diagnoses Subacute cough Procedures XR Chest 2 Views Kimmy Crocker PA-C [address] [place] [address] Referral ID Status Reason Start Date Expiration Date V isits Requested Visits Authorized [id number] Incomplete 07/31/2023 10/29/2024 1 1 Encounter Details Date Type Department Care Team Description 07/31/2023 11:35 AM CDT Ancillary Procedure [facility] Radiology [address] [place] [address] Kimmy Crocker PA-C [address] [place] [address] Subacute cough Social History Tobacco Use Types Packs/Day Years [...] Procedure Name Priority Date/Time Associated Diagnosis Comments XR CHEST 2 VIEWS Routine 07/31/2023 11:4 4 AM CDT Subacute cough documented in this encounter Results * XR Chest 2 Views (07/31/2023 11:44 AM CDT) Anatomical Region Laterality Modality Chest, Lung Computed Radiogr aphy 07/31/2023 11:4 4 AM CDT Narrative 07/31/2023 4:11 PM CDT EXAM: XR CHEST 2 VIEWS LOCATION: [facility] DATE: 07/31/2023 INDICATION: Persistent cough for 3 weeks, Subacute cough COMPARISON: 04/24/2016 IMPRESSION: Negative chest. Procedure Note Fawad Rueda MD - 07/31/2023 EXAM: XR CHEST 2 VIEWS LOCATION: [facility] DATE: 07/31/2023 INDICATION: Persistent cough for 3 weeks, Subacute cough COMPARISON: 04/24/2016 IMPRESSION: Negative chest. Kimmy COLLIER GD documented in this encounter Visit Diagnoses Diagnosis Subacute cough Cough documented in this encounter Care Teams Guardian Ad Litem Relationship Specialty Start Date End Date Jamarcus Cordero, LMFT, CODING COMPLIANCE MANAGER [address] [place] [address] PCP - General Nurse Practitioner 10/08/19 documented as of this encounter
--- OUTSIDE RECORDS SUMMARY | 2023-12-10 14:07 | XMS_ITS | Encounter Summary ---
Author Name Unknown Organization [facility] Address [address] [place] [id number] Care Team Providers Care Mud Mixer Helper Name Role Phone Jamarcus Cordero APRN, CNP Primary Care Provid er Reason for Visit * Reason Comments ROUTINE, FOLLOW-UP Encounter Details Date Type Department Care Team Description 05/03/2023 9:15 AM CDT Office Visit [facility] [address] [place], [place] [id number] Pepito Calle MD [address] [place] [address] Memory loss (Primary Dx) Social History Tobacco Use Types [...] on file documented as of this encounter Last Filed Vital Signs Vital Sign Reading Time Taken Comments Blood Pressure 128/70 05/03/2023 9:19 AM CDT Pulse 62 05/03/2023 9:19 AM CDT Temperature - - Respiratory Rate - - Oxygen Saturation - - Inhaled Oxygen Concentration - - Weight - - Height - - Body Mass Index - - documented in this encounter Progress Notes * Pepito Calle MD - 05/03/2023 9:15 AM CDT SUBJECTIVE: 05/03/23: I saw Zackary for a follow-up visit today accompanied by his . He had his neuropsych testing done last month. Results show mild cognitive impairment, amnestic +. Concerns are also raised for adjustment disorder with anxiety and depression. I went over those findings with the patient andhis today. He is still managing fine independently. Again he raises concerns about seeing his brother decline with Alzheimer's disease. 01/11/2023: This patient is a 67-year-old man seen for neurologic evaluation today accompanied by his . Concerns are raised for short-term memory issues. Symptoms seemed to come on fairly quickly after he retired a year and a half ago. He can easily forget what someone has told him recently. On a recent occasion a friend was telling the patient about his trip to [place], seeing the baseball players and 1 in particular. A few minutes later the patient asked him if he saw that 1 particular player. His says that he will forget conversations, he might forget what she has told him as far as plans for the day etc.. 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 He had to use the GPS in the car. Recently he had to call his for the code for the outside garage outdoor adventure instructor. He had not used this in several months. Outpatient Medications Prior to Visit Medication Sig Dispense Refill aspirin EC 81 MG enteric coated tablet Take 1 Tablet (81 mg) by mouth daily. atorvastatin (LIPITOR) 40 MG tablet Take 1 Tablet (40 mg) by mouth daily. 90 Tablet 1 citalopram (CELEXA) 20 MG tablet Take 1 Tablet (20 mg) by mouth daily. 90 Tablet 3 losartan (COZAAR) 100 MG tablet Take 1 Tablet (100 mg) by mouth daily. 90 Tablet 0 metoprolol succinate (TOPROL XL) 25 MG 24 hour release tablet Take 1 Tablet (25 mg) by mouth daily.90 Tablet 1 No facility-administered medications prior to visit. 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 LANG/SPEECH: Fluent, no dysarthria CRANIAL NERVES: II: Pupils equal and reactive III, IV, : EOM intact, no gaze preference or deviation VII: no facial asymmetry VIII: normal hearing to speech MOTOR: 5/5 in both upper and lower extremities REFLEXES: 2/4 throughout, bilateral flexor planters COORD: Very slight tremor on [id number] testing GAIT: gait and station are normal MRI of the brain and blood work were unremarkable ASSESSMENT & PLAN: Memory loss: As noted, his neuropsych testing showed mild cognitive impairment, not sufficient to diagnose dementia, though especially with his family history I am concerned about very early stage Alzheimer disease. He is certainly independent and functioning fine right now. We will get him started on Aricept. I discussed potential side effects with him and his . We will plan to meet again in a year so I can ask about any new symptoms. At some point it may be worth repeating the neuropsych testing to look for any significant decline. Again, the anxiety and depression certainly are contributing to difficulties with attention and focus and I encouraged him to address the mental health aspect of things. Orders Placed This Encounter donepezil (ARICEPT) 5 MG tablet donepezil (ARICEPT) 10 MG tablet documented in this encounter Plan of Treatment Not on file documented as of this encounter Visit Diagnoses Diagnosis Memory loss- Primary documented in this encounter Care Teams Mud Mixer Helper Relationship Specialty Start Date End Date Jamarcus Cordero, SENIOR INTERNATIONAL TAX MANAGER, DIDACTIC PROGRAM IN DIETETICS DIRECTOR [id number] [place] [address] PCP - General Nurse Practitioner 10/08/19 documented as of this encounter
--- OUTSIDE RECORDS SUMMARY | 2023-12-10 14:07 | XMS_ITS | Clinical Summary ---
Author Name Unknown Organization [facility] Address [address] [place] [address] Care Team Providers Care Padding Gluer Name Role Phone Jamarcus Cordero APRN, CNP Primary Care Provid er Source Comments You are receiving this document as you are listed as the primary care provider,follow-up provider, or the patient has been referred to you for consultation.This is in compliance with the Medicare and[facility] EHR Incentive Program,which states Providers who transition their patient to another setting of careor provider of care or refers their patient to another provider of care shouldprovide summary care record for each transition of care or referral. [facility] Allergies No known active allergies Medications Medication Sig Dispensed Refills Start Date End Date Status aspirin EC 81 MG enteric coated tablet Take 1 Tablet (81 mg) by mouth daily. 0 04/24/2016 Active donepezil (ARICEPT) 10 MG tablet Take 1 Tablet (10 mg) by mouth daily at bedtime. 90 Tablet 3 05/03/2023 05/02/2024 Active escitalopram oxalate (LEXAPRO) 20 MG tabletIndications:An xiety (HRC) Take 1 Tablet (20 mg) by mouth daily. 90 Tablet 3 05/03/2023 05/02/2024 Active cetirizine (ZYRTEC) 10 MG tabletIndications:Hernández bacute cough Take 1 Tablet (10 mg) by mouth daily. 30 Tablet 0 07/31/2023 Active fluticasone propionate (FLONASE) 50 MCG/ACT nasal solutionIndications: Subacute cough Place 2 Sprays into both nostrils daily. 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 [address] Jamarcus Cordero W, HEALTH SPA MANAGER, TANGLED YARN WORKER Symptoms 10/31/2023 1:56 PM AUDIO VISUAL SPECIALIST - 10/31/2023 11:59 PM AUDIO VISUAL SPECIALIST [facility] Electrocardiogram, Holter, Event Recorder [address] [place] [address] Lightheadedness (Primary Dx) Discharge Disposition: Home 10/31/2023 12:35 PM AUDIO VISUAL SPECIALIST - 10/31/2023 1:55 PM AUDIO VISUAL SPECIALIST [facility] Echocardiogram [address] [place] [address] Elizabeth Jeter PA-C Sleep apnea, unspecified type Discharge Disposition: Home 10/31/2023 9:00 AM AUDIO VISUAL SPECIALIST Lab Visit [facility] [address] [place], [place] [id number] Lightheadedness 10/30/2023 8:00 AM AUDIO VISUAL SPECIALIST Telemedicine [facility] [address] [place] [address] Elizabeth Jeter PA-C Lightheadedness (Primary Dx); Aortic dilatation (HRC); Sleep apnea, unspecified type 10/25/2023 [facility]ill [facility] Cardiology [address] [place] [address] Fortino Milian MD Refill 10/08/2023 [facility] [address] [place] [address] Fortino Milian MD Refill 09/12/2023 Telephone Specialty Center [facility] Neurology [address] [place] [id number] Pepito Calle MD Referral (To [facility]) 09/11/2023 1:10 PM AUDIO VISUAL SPECIALIST E-Visit [facility] [address] [place] [address] Pepito Calle MD Chief Comp: QUESTIONS, GENERAL from Last 3 Months Immunizations Name Administration Dates Next Due DT Ped 12/05/1988 Flu Vac (3+ yrs) 07/24/2014, 3,09/20/2011,2008 HepB, Unspecified Formulation 03/15/1992, 991,09/15/1991 Influenza L3O1-20 11/15/2009 Influenza IIV4 (Quadrivalent ) 0.5mL (80810) 08/07/2020,08/14/2019,08/17/2017,2014 Influenza IIV4 (Quadrivalent ) Fluad, 65+ Yrs 08/21/2023,07/18/2022,10/19/2021 Influenza IIV4 (Quadrivalent ) Fluzone, 65+ Yrs 10/19/2021 Moderna Monovalent 12+ 01/07/2021,12/10/2020 Moderna Monovalent Booster 12+ 10/01/2021 PCV20 ([id number]) 04/20/2023 PPSV23 (Pneumovax) 04/22/2021 Pfizer Bivalent 12+ 07/18/2022 RSV Arexvy 08/21/2023 TDAP (BOOSTRIX) 12/10/2009 Td (7+ yrs) 10/31/2019 Zoster (Zostavax) 04/26/2016 Zoster RZV (Shingrix) 08/04/2022,03/28/2022 Family History Medical History Relation Name Comments Alcohol Abuse Father Ermin Brain Aneurysm Father Ermin Cancer Father Ermin Lung High Blood Pressure Father Ermin Stroke Mother erin Alcohol Abuse Brother 1 Veto Dementia Brother 1 Veto Early Brother 1 Veto Heart Heart Disease Brother 1 Veto Coronary Artery Disease Brother 2 Heart Disease Brother 4 Simon Early Maternal Grandfather Cha Heart Heart Disease Maternal Grandfather Cha CAD/IA High Blood Pressure Son 1 Diabetes Negative Family History High Cholesterol Negative Family History Relation Name Status Comments Father Ermin Mother erin (Age 83) Brother 1 Veto Brother 2 Brother 3 Alive Brother 4 Simon Maternal Grandfather Cha Son 1 Alive Son 2 Alive Social History Tobacco Use Types Packs/Day Years [...] Sign Reading Time Taken Comments Blood Pressure 103/61 07/31/2023 11:01 AM CDT Pulse 52 07/31/2023 11:01 AM CDT Temperature 36.2 ??C (97.2 ??F) 05/05/2022 11:52 AM C DT Respiratory Rate 12 01/11/2023 2:01 PM CDT Oxygen Saturation 94% 05/05/2022 2:15 PM CDT Inhaled Oxygen Concentration - - Weight 95.3 kg (210 lb) 07/31/2023 11:01 AM CDT Height 181 cm (5' 11.25) 04/20/2023 8:59 AM CDT Body Mass Index 29.08 04/20/2023 8:59 AM CDT Plan of Treatment Health Maintenance Due Date Last Done Comments Abdominal Aortic Aneurysm (AAA) Screening 2020 COVID-19 Vaccine ( season) 2023 07/18/2022, 10/01/2021, 01/07/2021, Additional history exists Medicare Annual Wellness Visit 10/29/2023 04/20/2023, 04/20/2023 (Completed), 02/21/2022 PSA Screening Discussion 04/20/2024 023, 02/21/2022, 04/22/2021, Additional history exists Prediabetes: HGBA1C 04/20/2024 04/20/2023, 02/21/2022, 04/22/2021, Additional history exists Colonoscopy 12/08/2024 12/08/2019, 03/02/2010 Cholesterol 04/20/2028 04/20/2023, 01/28, 04/22/2021, Additional history exists DTaP/Tdap/Td (4 - Tdap) 10/31/2029 10/31/19, 12/10/2009, 12/05/1988 HepB Completed 03/15/1992, 09/28, 09/15/1991 Hep C Screening (Preventive Services) Completed 04/24/2016 Zoster/Shingles Completed 08/04/2022, 02/28, 04/26/2016 Pneumococcal 65+ Yrs Completed 04/20/2023, 04/22/20 21 Influenza Completed 08/21/2023, 06/30, 10/19/2021, Additional history exists HepA Aged Out No longer eligi ble based on patient's age to complete this topic Hib Aged Out No longer eligi ble based on patient's age to complete this topic IPV (Polio) Aged Out No longer eligi ble based on patient's age to complete this topic MCV4 Aged Out No longer eligi ble based on patient's age to complete this topic Procedures Procedure Name Priority Date/Time Associated Diagnosis Comments ZIOPATCH RECORDER 8-15 DAYS Routine 11/20/2023 10:25 AM AUDIO VISUAL SPECIALIST Lightheadedness ECHOCARDIOGRAM Routine 10/31/2023 1:12 PM AUDIO VISUAL SPECIALIST Sleep apnea, unspecified type UA MICRO Routine 10/31/2023 9:38 AM AUDIO VISUAL SPECIALIST Lightheadedness URINALYSIS ROUTINE, MICRO/CULTURE IF POS Routine 10/31/2023 9:38 AM AUDIO VISUAL SPECIALIST Lightheadedness COMPLETE BLOOD COUNT-W/DIFF Routine 10/31/2023 9:07 AM AUDIO VISUAL SPECIALIST Lightheadedness COMPREHENSIVE METABOLIC PANEL Routine 10/31/2023 9:07 AM AUDIO VISUAL SPECIALIST Lightheadedness CBC AND DIFFERENTIAL PANEL Routine 10/31/2023 9:07 AM AUDIO VISUAL SPECIALIST Lightheadedness from Last 3 Months Results * Ziopatch Recorder 8-15D - [id number] (11/20/2023 10:25 AM AUDIO VISUAL SPECIALIST) 11/20/2023 10:2 5 AM AUDIO VISUAL SPECIALIST Narrative MUSE GHP - 11/20/2023 3:00 PM AUDIO VISUAL SPECIALIST Summary: - Zio is unremarkable - The SVT mechanism is 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 - No symptoms reported Signature: Girish Keating MD Primary Indications: ??Dizziness and giddiness (R42) Enrollment Period: 13 days 5 hours; 10/31/2023, 02:14pm to 11/13/2023, 07:22pm Analysis Time (after artifact removed): 12 days 20 hours Total Triggers: 0 Total Diaries: 0 Findings within +/- 45 sec of triggered events or diary entries: None Found Longest Ventricular Bigeminy Episode: 0 s Longest Ventricular Trigeminy Episode: 7.7 s Findings: Patient had a min HR of 35 bpm, max sinus HR of 148 bpm, and avg HR of 58 bpm. Predominant underlying rhythm was Sinus Rhythm. 13 Supraventricular Tachycardia runs occurred, the run with the fastest interval lasting 18 beats with a max rate of 148 bpm, the longest lasting 10.6 secs with an avg rate of 125 bpm. Isolated SVEs were rare (<1.0%), SVE Couplets were rare (<1.0%), and SVE Triplets were rare (<1.0%). Isolated VEs were rare (<1.0%), VE Couplets were rare (<1.0%), and no VE Triplets were present. Ventricular Trigeminy was present. 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 - No symptoms reported Signature: Girish Keating MD Primary Indications: Dizziness and giddiness (R42) Enrollment Period: 13 days 5 hours; 10/31/2023, 02:14pm to 11/13/2023,07:22pm Analysis Time (after artifact removed): 12 days 20 hours Total Triggers: 0 Total Diaries: 0 Findings within +/- 45 sec of triggered events or diary entries: None Found Longest Ventricular Bigeminy Episode: 0 s Longest Ventricular Trigeminy Episode: 7.7 s Findings: Patient had a min HR of 35 bpm, max sinus HR of 148 bpm, and avg HR of 58bpm. Predominant underlying rhythm was Sinus Rhythm. 13 Supraventricular Tachycardia runs occurred, the run with the fastestinterval lasting 18 beats with a max rate of 148 bpm, the longest [id number] secs with an avg rate of 125 bpm. Isolated SVEs were rare (<1.0%), SVE Couplets were rare (<1.0%), and SVE Triplets were rare (<1.0%). Isolated VEs were rare (<1.0%), VE Couplets were rare (<1.0%), and no VETriplets were present. Ventricular Trigeminy was present. Confirmed by Dain Keating ([id number]) on 11/20/2023 3:00:43 PM Elizabeth Jeter PA-C PN ECG ORDERABLES [facility] [address] [place] [id number] * Echocardiogram (10/31/2023 1:12 PM AUDIO VISUAL SPECIALIST) 10/31/2023 1:12 PM AUDIO VISUAL SPECIALIST Narrative PN ECHO - 10/31/2023 3:01 PM AUDIO VISUAL SPECIALIST ECHOCARDIOGRAM. Date: 10/31/2023 Start: 01:12 PM [facility] CONCLUSIONS Technically difficult study. 1. Left ventricular ejection fraction is estimated at 52% (normal). Mild concentric left ventricular hypertrophy. 2. No significant valve abnormalities. No significant change from prior. FINDINGS MITRAL VALVE Normal mitral valve structure and function. Trace mitral regurgitation. AORTIC VALVE Normal aortic valve structure and function. The aortic valve is tricuspid. Trace aortic regurgitation. TRICUSPID VALVE Normal tricuspid valve structure and function. Trace tricuspid regurgitation. Pulmonary artery pressure estimate cannot be obtained due to inadequate TR jet. PULMONIC VALVE Normal pulmonic valve structure and function. Trace pulmonic regurgitation. LEFT ATRIUM Normal left atrium. Left atrial volume index is 30 mL/m^2. (Normal <34mL/m^2). LEFT VENTRICLE Left ventricular ejection fraction is estimated at 52% (normal). Mild concentric left ventricular hypertrophy. Normal left ventricular size, low-normal global and regional function. Indeterminate diastolic function. RIGHT ATRIUM Normal right atrial size. RIGHT VENTRICLE Right ventricle is normal in size and function. PERICARDIAL EFFUSION There is no significant pericardial effusion. MISCELLANEOUS Aortic root is normal. Ascending aorta is 4.1cm. The inferior vena cava is small. M-MODE/2D MEASUREMENTS & CALCULATIONS LV Diastolic Dimension: 4.93 cm LV PW Diastolic: 1.34 cm Septum Diastolic: 1.37 cm ?LA Dimension: 4.5 cm ?LA Area: 19.1 cm^2 LV Area Diastolic: 27.3 cm^2 LV Area Systolic: 18.4 cm^2 ?Ascending Aorta: 4.1 cm LV Systolic Dimension: 2.91 cm ? LA volume index: 30.9 LV Volume Diastolic: 74.9 ml ? ml/m^2 LV Volume Systolic: 36.9 ml LV EDV/LV EDV Index: 74.9 ml/35 m^2 ?IVC Inspiration: 0.17 cm LV ESV/LV ESV Index: 36.9 ml/17 m^2EF ?IVC Expiration: 1.28 cm Estimated: 52 % LV Length: 8.27 cm LVOT: 2.2 cm DOPPLER MEASUREMENTS & CALCULATIONS MV Peak E-Wave: 0.4 m/s MV Peak A-Wave: 0.7 m/s MV E/A Ratio: 0.6 MV Peak Gradient: 0.8 mmHg MV Deceleration Time: 426 msec E' Velocity: 0.03 m/s AV P1/2t: 753 msec PROCEDURE Doppler Quality: Adequate quality pulse, continuous wave, and color Doppler was performed and interpreted. 2-D Quality: Adequate quality 2-dimensional echo was performed and interpreted. Indications: Sleep Apnea. Contrast Medium: Not Applicable. Height: 71 inches Weight: 210 pounds BSA: 2.15 m^2 BMI: 29.29 kg/m^2 Rhythm: Sinus bradycardia HR: 49 bpm BP: 103/61 mmHg Gender: ? Male SIGNATURE DEMOGRAPHICS Patient Name ??AINSLEY NANO Neris ??Room Number ? OUTPT Patient ? [id number] ? Date of Study ? 10/31/2023 Number Accession ? [id number] ? Interpreting ?CELSO Holland Number ? Provider ?MD KELLY Date of 1955 ? Ordering Provider Elizabeth Jeter, ?PAAntonio Primary ? JAMARCUS W ?Tax Auditor ? EE Provider ?GM ANP ?Attending ? Elizabeth Jeter, ?Physician ? SRIKANTH The procedure was explained in detail to the patient. Risks, complications and alternative treatments were reviewed. Informed consent was obtained. Procedure Note Celso Mendoza MD - 10/31/2023 ECHOCARDIOGRAM. Date: 10/31/2023 Start: 01:12 PM [facility] CONCLUSIONS Technically difficult study. 1. Left ventricular ejection fraction is estimated at 52% (normal). Mild concentric left ventricular hypertrophy. 2. No significant valve abnormalities. No significant change from prior. FINDINGS MITRAL VALVE Normal mitral valve structure and function. Trace mitral regurgitation. AORTIC VALVE Normal aortic valve structure and function. The aortic valve is tricuspid. Trace aortic regurgitation. TRICUSPID VALVE Normal tricuspid valve structure and function. Trace tricuspid regurgitation. Pulmonary artery pressure estimate cannot be obtained due to inadequate TR jet. PULMONIC VALVE Normal pulmonic valve structure and function. Trace pulmonic regurgitation. LEFT ATRIUM Normal left atrium. Left atrial volume index is 30 mL/m^2. (Normal <34mL/m^2). LEFT VENTRICLE Left ventricular ejection fraction is estimated at 52% (normal). Mild concentric left ventricular hypertrophy. Normal left ventricular size, low-normal global and regional function. Indeterminate diastolic function. RIGHT ATRIUM Normal right atrial size. RIGHT VENTRICLE Right ventricle is normal in size and function. PERICARDIAL EFFUSION There is no significant pericardial effusion. MISCELLANEOUS Aortic root is normal. Ascending aorta is 4.1cm. The inferior vena cava is small. M-MODE/2D MEASUREMENTS & CALCULATIONS LV Diastolic Dimension: 4.93 cm LV PW Diastolic: 1.34 cm Septum Diastolic: 1.37 cm LA Dimension: 4.5 cm LA Area: 19.1 cm^2 LV Area Diastolic: 27.3 cm^2 LV Area Systolic: 18.4 cm^2 Ascending Aorta: 4.1 cm LV Systolic Dimension: 2.91 cm LA volume index: 30.9 LV Volume Diastolic: 74.9 ml ml/m^2 LV Volume Systolic: 36.9 ml LV EDV/LV EDV Index: 74.9 ml/35 m^2 IVC Inspiration: 0.17 cm LV ESV/LV ESV Index: 36.9 ml/17 m^2EF IVC Expiration: 1.28 cm Estimated: 52 % LV Length: 8.27 cm LVOT: 2.2 cm DOPPLER MEASUREMENTS & CALCULATIONS MV Peak E-Wave: 0.4 m/s MV Peak A-Wave: 0.7 m/s MV E/A Ratio: 0.6 MV Peak Gradient: 0.8 mmHg MV Deceleration Time: 426 msec E' Velocity: 0.03 m/s AV P1/2t: 753 msec PROCEDURE Doppler Quality: Adequate quality pulse, continuous wave, and color Doppler was performed and interpreted. 2-D Quality: Adequate quality 2-dimensional echo was performed and interpreted. Indications: Sleep Apnea. Contrast Medium: Not Applicable. Height: 71 inches Weight: 210 pounds BSA: 2.15 m^2 BMI: 29.29 kg/m^2 Rhythm: Sinus bradycardia HR: 49 bpm BP: 103/61 mmHg Gender: Male SIGNATURE DEMOGRAPHICS Patient Name AINSLEY Cordon Room Number [facility] Patient [id number] Date of Study 10/31/2023 Number Interpreting CELSO Cadena Provider MD KELLY Date of 1955 Ordering Provider Elizabeth Jeter PA-C Primary [facility] Tax Auditor EE Provider GM FLOR Attending Elizabeth Jeter, Physician SRIKANTH The procedure was explained in detail to the patient. Risks, complications and alternative treatments were reviewed. Informed consent was obtained. Elizabeth Jeter PA-C ET ECHO ORDERABLE S PN ECHO * (ABNORMAL) Urinalysis Routine, Micro/Culture if Pos: Clean Catch (10/31/2023 9:38 AM AUDIO VISUAL SPECIALIST) Urine Culture Comment Urinalysis results do not meet criteria for urine culture reflex. 10/31/2023 10:03 AM AUDIO VISUAL SPECIALIST [facility] Urine Color Yellow 10/31/2023 10:03 AM AUDIO VISUAL SPECIALIST [facility] Urine Clarity Clear Clear 10/31/2023 10:03 AM AUDIO VISUAL SPECIALIST [facility] Specific [place], Urine 1.015 1.005 - 1.030 10/31/2023 10:03 AM AUDIO VISUAL SPECIALIST [facility] PH Urine 6.0 5.0 - 8.0 10/31/2023 10:03 AM AUDIO VISUAL SPECIALIST [facility] Protein, Urine Qual (mg/dL) Negative Neg/Trace 10/31/2023 10:03 AM [facility] Glucose Urine Qual (mg/dL) Negative Negative 10/31/2023 10:03 AM AUDIO VISUAL SPECIALIST [facility] Ketones, Urine (mg/dL) Negative Negative 10/31/2023 10:03 AM [facility] Urobilinogen, Urine (EU/dL) 0.2 <2.0 10/31/2023 10:03 AM AUDIO VISUAL SPECIALIST [facility] Bilirubin Urine Negative Negative 10/31/2023 10:03 AM AUDIO VISUAL SPECIALIST [facility] Blood, Urine Small(A) Neg/Trace 10/31/2023 10:03 AM AUDIO VISUAL SPECIALIST [facility] Nitrite Urine Negative Negative 10/31/2023 10:03 AM [facility] Leukocyte Est. Negative Negative 10/31/2023 10:03 AM [facility] Urine Source Clean Catch 10/31/2023 10:03 AM [facility] Urine URINE SPECIMEN COLLECTION, CLEAN CATCH / Unknown Non-blood Collection / Unknown 10/31/2023 9:38 AM AUDIO VISUAL SPECIALIST 10/31/2023 9:38 AM AUDIO VISUAL SPECIALIST Elizabeth Jeter PA-C LAB_1 [facility] [address] [place] [address], [facility] [phone] * (ABNORMAL) Urine Microscopic Evaluation: Clean Catch (10/31/2023 9:38 AM AUDIO VISUAL SPECIALIST) Red Blood Cells 0-3 0 - 3 /HPF 10:02 AM AUDIO VISUAL SPECIALIST [facility] White Blood Cells 0-5 0 - 5 /HPF 10/31/2023 10:02 AM [facility] Bacteria Few(A) None Seen /HPF 10/31/2023 10:02 AM [facility] Squamous Epithelial Cells Moderate(A ) None Seen, Occasional , Few /HPF 10/31/2023 10:02 AM AUDIO VISUAL SPECIALIST [facility] Sperm Present(A) None Seen /HPF 10/31/2023 10:02 AM AUDIO VISUAL SPECIALIST [facility] Urine URINE SPECIMEN COLLECTION, CLEAN CATCH / Unknown Non-blood Collection / Unknown 10/31/2023 9:38 AM AUDIO VISUAL SPECIALIST 10/31/2023 9:38 AM AUDIO VISUAL SPECIALIST Elizabeth Jeter PA-C LAB_1 [facility] [address] [place] [address], [facility] [phone] * Complete Blood Count-W/Diff (10/31/2023 9:07 AM AUDIO VISUAL SPECIALIST) WBC 6.3 3.5 - 10.5 x10(9)/L 10/31/2023 9:08 AM AUDIO VISUAL SPECIALIST [facility] RBC 4.70 4.32 - 5.72 x10(12)/L 10/31/2023 9:08 AM [facility] Hemoglobin 14.5 13.5 - 17.5 g/dL 10/31/2023 9:08 AM [facility] HCT 44.4 38.8 - 50.0 % 10/31/2023 9:08 AM [facility] MCV 94.5 80.0 - 100.0 fL 10/31/2023 9:08 AM [facility] MCH 30.9 27.6 - 33.3 pg 10/31/2023 9:08 AM [facility] MCHC 32.7 31.5 - 35.2 g/dL 10/31/2023 9:08 AM [facility] RDW 12.6 11.9 - 15.5 % 10/31/2023 9:08 AM [facility] Platelets 196 150 - 450 x10(9)/L 10/31/2023 9:08 AM [facility] Neutrophil Absolute 3.7 1.7 - 7.0 10(9)/L 10/31/2023 9:08 AM AUDIO VISUAL SPECIALIST [facility] Lymphocyte Absolute 1.7 1.0 - 4.8 10(9)/L 10/31/2023 9:08 AM AUDIO VISUAL SPECIALIST [facility] Monocyte Absolute 0.7 0.2 - 0.9 10(9)/L 10/31/2023 9:08 AM [facility] Eosinophil Absolute 0.3 0.0 - 0.5 10(9)/L 10/31/2023 9:08 AM AUDIO VISUAL SPECIALIST [facility] Basophil Absolute 0.0 0.0 - 0.3 10(9)/L 10/31/2023 9:08 AM [facility] Immature Granulocyte % 0.2 0.0 - 0.5 % 10/31/2023 9:08 AM [facility] Blood Venipuncture / Unknown 10/31/2023 9:07 AM AUDIO VISUAL SPECIALIST 10/31/2023 9:07 AM AUDIO VISUAL SPECIALIST Elizabeth Jeter PA-C LAB_1 [facility] [address] [place] [address], [facility] [phone] * (ABNORMAL) Comp Metabolic Panel (10/31/2023 9:07 AM AUDIO VISUAL SPECIALIST) Sodium 138 136 - 145 mmol/L 10/31/2023 3:01 PM [facility] Potassium 4.1 3.5 - 5.1 mmol/L 10/31/2023 3:01 PM [facility] Chloride 107 98 - 109 mmol/L 10/31/2023 3:01 PM [facility] CO2 28 20 - 29 mmol/L 10/31/2023 3:01 PM [facility] Anion Gap 3(L) 7 - 16 mmol/L 10/31/2023 3:01 PM [facility] Calcium 9.2 8.4 - 10.4 mg/dL 10/31/2023 3:01 PM [facility] BUN 16 7 - 26 mg/dL 10/31/2023 3:01 PM [facility] Creatinine 0.86 0.73 - 1.18 mg/dL 10/31/2023 3:01 PM [facility] Alkaline Phosphatase 109 40 - 150 U/L 10/31/2023 3:01 PM [facility] AST (SGOT) 24 10 - 40 U/L 10/31/2023 3:01 PM [facility] ALT (SGPT) 22 <=55 U/L 10/31/2023 3:01 PM [facility] Bilirubin, Total 1.6(H) 0.2 - 1.2 mg/dL 10/31/2023 3:01 PM AUDIO VISUAL SPECIALIST [facility] Protein, Total 7.4 6.4 - 8.3 g/dL 10/31/2023 3:01 PM [facility] Albumin 3.7 3.5 - 5.0 g/dL 10/31/2023 3:01 PM [facility] Glucose 91 70 - 100 mg/dL 10/31/2023 3:01 PM [facility] Comment:The given reference range is for the fasting state. Non-fasting reference range for glucose is 70 - 180 mg/dL. GFR, Estimated >60 >60 mL/min/1. 73m2 10/31/2023 3:01 PM [facility] Hours Fasting 0.0 8 - 12 Hours 10/31/2023 3:01 PM [facility] Blood Venipuncture / Unknown 10/31/2023 9:07 AM AUDIO VISUAL SPECIALIST 10/31/2023 9:07 AM AUDIO VISUAL SPECIALIST Elizabeth Jeter PA-C LAB_1 Performing Organization Address City/State/[facility] Co de Phone Number [facility] [address] [place] [address], [facility] [phone] from Last 3 Months Advance Directives Documents on File Type Date Recorded Patient Nuclear Licensing Engineer Expl anation Advance Directive/Living Will/Durable Power of Attny on file/POLST PN 05/03/2023 9:01 AM HEALTHCARE DIRECTIVE 03/21/2023 Mechelle Reyer HEALTH CARE DIRECTIVE 03/21/2023 Latest Code Status on File Code Status Date Activated Date Inactivated Comments Full Code 05/05/2022 11:51 AM 05/05/2022 4:55 PM Healthcare Agents on File Name Relationship Healthcare Agent Relationshi p Communication Mechellesa Mcgowan Health Care Agent Care Teams Padding Gluer Relationship Specialty Start Date End Date Jamarcus Cordero, HEALTH SPA MANAGER, TANGLED YARN WORKER [id number] [place] [id number] PCP - General Nurse Practitioner 10/08/19
--- OUTSIDE RECORDS SUMMARY | 2023-12-10 14:07 | XMS_ITS | Encounter Summary ---
Author Name Unknown Organization [facility] Address [address] [place] [address] Care Team Providers Care Veneer Clipper Name Role Phone Jamarcus Cordero APRN, BUSINESS SYSTEMS ARCHITECT Primary Care Provid er Reason for Visit * Reason Comments Symptoms Encounter Details Date Type Department Care Team Description 12/10/2023 Nurse Triage Careline [address] [place], [place] [id number] Jamarcus Cordero, HEAVY EQUIPMENT SALES ASSOCIATE, BUSINESS SYSTEMS ARCHITECT [address] [place] [id number] Symptoms Social History Tobacco Use Types Packs/Day Years [...] on file documented as of this encounter Nursing Notes * Ida Rubio RN - 12/10/2023 8:48 AM CST Reason for Disposition ??? [1] SEVERE weakness (i.e., unable to walk or barely able to walk, requires support) AND [2] new-onset or worsening Protocols used: Neurologic [place]-HGQCW-PT ICAL RADIATION TECHNICIAN * Ida Rubio RN - 12/10/2023 8:31 AM CST Call transferred to Careline from [facility]ment [facility] paperhanger contractor, Ihsan. Verified patient identity: Yes, verified name, date of , and address. Situation/Background (brief explanation of current symptoms/situation): Spouse and patient state his episodes of symptoms began approximately one week ago and do not happen every day. They state the last time it happened was 20 minutes ago. They state he had 5 episodes yesterday. The episodes can occur if he is standing or sitting, and has not occurred when he is laying down. Patient describes the episodes as he feels heat and tinging in his torso, but not his legs, possibly his head, feels weak like he is going to faint so he sits down or lays down and then the symptoms resolve within 5 minutes. Patient states he has not fainted during these episodes. Spouse states patient gets pale when the episodes occur. Spouse states patient looked grayish during one of his episodes yesterday. Yesterday his systolic blood pressure was in the upper 160's and then it came down to normal and constantly rechecking it,.They have not checked his blood pressure today. They state at clinic visits they would have to check his blood pressure 5 times because the first readings would be high and subsequent readings would be normal. They state lately his blood pressures have been low. They state patienthas had numerous scans and tests as he will be participating in a program for Alzheimer's through [place] and having infusions, however he has not started that yet. They state patient recently wore a Holter monitor for 2 weeks and it was all normal results. Patient states he has no symptoms at this time. Reviewed with patient pertinent medical history (as it related to the call): Yes Reviewed with patient pertinent medications (as they relate to call): Yes Reviewed with patient pertinent allergies (as they relate to call): Yes ICAL RADIATION TECHNICIAN documented in this encounter Plan of Treatment Not on file documented as of this encounter Visit Diagnoses Not on filedocumented in this encounter Care Teams Veneer Clipper Relationship Specialty Start Date End Date Jamarcus Cordero, ERICA, RIKA [address] [address] PCP - General Nurse Practitioner 10/08/19 documented as of this encounter
--- OUTSIDE RECORDS SUMMARY | 2023-12-10 14:07 | XMS_ITS | Encounter Summary ---
Author Name Unknown Organization [facility] Address [address] [place] [address] Care Team Providers Care Cnc Specialist Name Role Phone Jamarcus Cordero APRN, CNP Primary Care Provid er Reason for Referral * Procedure/Equipment (Routine) - New Request Specialty Diagnoses / Procedures Referred By Contenma t Referred To Contact Diagnoses Sleep apnea, unspecified type Procedures Echocardiogram Elizabeth Jeter PA-C [address] [place] [address] Referral ID Status Reason Start Date Expiration Date V isits Requested Visits Authorized [id number] New Request 10/30/2023 01/28/2025 1 1 TRANSPORTER Reason for Visit * Procedure/Equipment (Routine) - New Request Specialty Diagnoses / Procedures Referred By Arlen zamorano Referred To Contact Diagnoses Sleep apnea, unspecified type Procedures Echocardiogram Elizabeth Jeter PA-C [address] [place] [address] Referral ID Status Reason Start Date Expiration Date V isits Requested Visits Authorized [id number] New Request 10/30/2023 01/28/2025 1 1 Encounter Details Date Type Department Care Team Description 10/31/2023 12:35 PM CLAY TRANSPORTER - 10/31/2023 1:55 PM CLAY TRANSPORTER Hospital Encounter [facility] Echocardiogram [address] [facility] [place] [address] Elizabeth Jeter PA-C [address] [place] [address] Sleep apnea, unspecified type Discharge Disposition: Home Social History Tobacco Use Types Packs/Day Years [...] on file documented as of this encounter Medications at Time of Discharge Medication Sig Dispensed Refills Start Date End Date aspirin EC 81 MG enteric coated tablet Take 1 Tablet (81 mg) by mouth daily. 0 04/24/2016 atorvastatin (LIPITOR) 40 MG tablet TAKE 1 TABLET BY MOUTH DAILY 100 Tablet 1 10/26/2023 cetirizine (ZYRTEC) 10 MG tabletIndications:Subac sergio cough Take 1 Tablet (10 mg) by mouth daily. 30 Tablet 0 07/31/2023 donepezil (ARICEPT) 10 MG tablet Take 1 Tablet (10 mg) by mouth daily at bedtime. 90 Tablet 3 05/03/2023 05/02/2024 escitalopram oxalate (LEXAPRO) 20 MG tabletIndications:Anxie ty (HRC) Take 1 Tablet (20 mg) by mouth daily. 90 Tablet 3 05/03/2023 05/02/2024 fluticasone propionate (FLONASE) 50 MCG/ACT nasal solutionIndications:Sub acute cough Place 2 Sprays into both nostrils daily. 16 g 0 07/31/2023 losartan (COZAAR) 100 MG tabletIndications:Essen tial hypertension (HRC) TAKE 1 TABLET BY MOUTH DAILY 90 Tablet 1 10/09/2023 metoprolol succinate (TOPROL XL) 25 MG 24 hour release tablet TAKE 1 TABLET BY MOUTH ONCE DAILY 100 Tablet 1 10/26/2023 documented as of this encounter Plan of Treatment Not on file documented as of this encounter Procedures Procedure Name Priority Date/Time Associated Diagnosis Comments ECHOCARDIOGRAM Routine 10/31/2023 1:12 PM CLAY TRANSPORTER Sleep apnea, unspecified type documented in this encounter Results * Echocardiogram (10/31/2023 1:12 PM CLAY TRANSPORTER) 10/31/2023 1:12 PM CLAY TRANSPORTER Narrative PN ECHO - 10/31/2023 3:01 PM CLAY TRANSPORTER ECHOCARDIOGRAM. Date: 10/31/2023 Start: 01:12 PM Facility: [...] ? Male SIGNATURE DEMOGRAPHICS Patient Name ??AINSLEY Cordon ??Room Number ? OUTPT Patient ? [id number] ? Date of Study ? 10/31/2023 Number Accession ? [id number] ? Interpreting ?CELSO Holland Number ? Provider ?MD KELLY Date of 1955 ? Ordering Provider Elizabeth Jeter, ?PA-C Primary ? JAMARCUS W ?Ironworker Wire Fence Erector ? EE Provider ?GM ANP ?Attending ? Elizabeth Jeter, ?Physician ? PA-C The procedure was explained in detail to [...] DEMOGRAPHICS Patient Name AINSLEY Cordon Room Number OUTPT Patient [id number] Date of Study 10/31/2023 Number Interpreting CELSO Cadena Provider MD KELLY Date of 1955 Ordering Provider Elizabeth Jeter PA-C Primary JAMARCUS Barrientos Ironworker Wire Fence Erector EE Provider GM FLOR Attending Elizabeth Jeter, Physician SRIKANTH The procedure was explained in detail to the patient. Risks, complications and alternative treatments were reviewed. Informed consent was obtained. Elizabeth Jeter PA-C ET ECHO ORDERABLE S PN ECHO documented in this encounter Visit Diagnoses Diagnosis Sleep apnea, unspecified type documented in this encounter Care Teams Cnc Specialist Relationship Specialty Start Date End Date Jamarcus Cordero, ERICA, RIKA [address] [place] [address] PCP - General Nurse Practitioner 10/08/19 documented as of this encounter
--- OUTSIDE RECORDS SUMMARY | 2023-12-10 14:07 | XMS_ITS | Encounter Summary ---
Author Name Unknown Organization [facility] Address [address] [place] [address] Care Team Providers Care Disaster Recovery Analyst Name Role Phone Jamarcus Cordero APRN, CNP Primary Care Provid er Reason for Visit * Reason Comments Refill Encounter Details Date Type Department Care Team Description 10/08/2023 Refill [facility] Cardiology [address] [place], [place] [phone] Fortino Milian MD [address] [place], [place] [phone] Refill Social History Tobacco Use Types Packs/Day [...] hypertension documented in this encounter Care Teams Disaster Recovery Analyst Relationship Specialty Start Date End Date Jamarcus [place] CNP [address] [address] PCP - General Nurse Practitioner 10/08/19 documented as of this encounter
--- OUTSIDE RECORDS SUMMARY | 2023-12-10 14:07 | XMS_ITS | Encounter Summary ---
Author Name Unknown Organization [facility] Address [address], [place] [address] Care Team Providers Care House Wirer Name Role Phone Jamarcus Cordero APRN, CNP Primary Care Provid er Reason for Referral * Procedure/Equipment (Routine) - Incomplete Specialty Diagnoses / Procedures Referred By Arlen t Referred To Contact Diagnoses Subacute cough Procedures XR Chest 2 Views Kimmy Crocker PA-C [address] [place] [address] Referral ID Status Reason Start Date Expiration Date V isits Requested Visits Authorized [id number] Incomplete 07/31/2023 10/29/2024 1 1 Reason for Visit * Reason Comments COUGH Encounter Details Date Type Department Care Team Description 07/31/2023 10:40 AM CDT Office Visit [facility] [address] [place] [address] Kimmy Crocker PA-C [address] [place] [address] Subacute cough (Primary Dx) Social History Tobacco Use Types [...] Pulse 52 07/31/2023 11:01 AM CDT Temperature - - Respiratory Rate - - Oxygen Saturation - - Inhaled Oxygen Concentration - - Weight 95.3 kg (210 lb) 07/31/2023 11:01 AM CDT Height - - Body Mass Index 29.08 04/20/2023 8:59 AM CDT documented in this encounter Progress Notes * Kimmy Crocker PA-C - 07/31/2023 10:40 AM CDT Historical: Chief Complaint Patient presents with COUGH Cold/Cough/Flu/Sinus/Sore Throat How long have you had these symptoms? 3 week(s) What cold symptoms are you experiencing?Cough Are you experiencing any wheezing? No Do you have any new chest pain or shortness of breath? No Are you coughing up any mucus? No Do you have a history of asthma? No Have you had a fever? No Are there any treatments you have tried? YES What products have you tried? Nyquil and Dayquil and Mucinex Did the treatment help your symptoms? Has not changed Zackary Mcgowan is a 67 y.o. male who presents for evaluation of a persistent cough. Patient presents with , both report persistent dry cough for 3 weeks. Coughing throughout the day, and specifically having coughing fits. Sometimes leads to posttussive gagging. More annoying than anything. Mucinex, DayQuil, and NyQuil helps for cough suppression. He is also taking Zyrtec intermittently for seasonal allergies, but doesn't notice any difference. Denies any SOB, difficulty breathing, sore throat, chest pain, fever or chills. Additionally, he notes a history of acid reflux. No known exposures or sick contacts. Negative at-home COVID-19 test results. No additional concerns were addressed, and remainder of ROS was negative. I have personally reviewed the patient's allergies and medications in detail and updated the patient record as necessary. Observed: BP 103/61 (BP Location: Right Arm, BP Cuff Size: Regular - Long) Pulse (!) 52 Wt 210 lb (95.3 kg) BMI 29.08 kg/m?? Physical Exam: General Appearance: alert, well appearing, and in no apparent distress HEENT: lids normal, sclera clear, and conjunctiva normal Neck: no lymphadenopathy, no thyromegaly or nodules, and supple Heart: regular rate and rhythm, no murmurs, gallops or rubs, and normal S1 and S2 Lungs: clear to auscultation, no wheezes, rales or rhonchi, equal breath sounds throughout, and normal respiratory effort Assessment/Plan: Subacute cough - XR Chest 2 Views; Future - benzonatate (TESSALON) 100 MG capsule; Take 1-2 Capsules (100-200 mg) by mouth three times a day as needed for Cough for up to 30 doses. - cetirizine (ZYRTEC) 10 MG tablet; Take 1 Tablet (10 mg) by mouth daily. - fluticasone propionate (FLONASE) 50 MCG/ACT nasal solution; Place 2 Sprays into both nostrils daily. - ALBUterol sulfate HFA 108 (90 Base) MCG/ACT inhaler; Inhale 1-2 Puffs every 4 hours as needed forWheezing. MDM: It was an absolute pleasure seeing Tray in clinic today, and I was happy to participate in hiscare. Obtained CXR, which was WNL. No concerning findings. Given history and physical exam, symptoms seem to be related to seasonal allergies and PND. Advised he take Zyrtec and Flonase daily, and also provided tessalon pearls and albuterol inhaler PRN use for cough. Administration and side effectswere discussed, and all his questions were answered. Discussed these medications and other supportive cares at length with the patient and his . Advised he follow-up in 2-3 weeks with any worsening symptoms, and sooner any other new or acute changes to his health. Patient and his were bothin agreement with the plan going forward, and had no further questions at this time. Please see orders and patient instructions Kimmy Crocker PA-C documented in this encounter Plan of Treatment Not on file documented as of this encounter Results * XR Chest 2 Views (07/31/2023 11:44 AM CDT) Anatomical Region Laterality Modality Chest, Lung Computed Radiogr aphy 07/31/2023 11:4 4 AM CDT Narrative 07/31/2023 4:11 PM CDT EXAM: XR CHEST 2 VIEWS LOCATION: [facility] DATE: 07/31/2023 INDICATION: Persistent cough for 3 weeks, Subacute cough COMPARISON: 04/24/2016 IMPRESSION: Negative chest. Procedure Note Fawad Rueda MD - 07/31/2023 EXAM: XR CHEST 2 VIEWS LOCATION: [facility] DATE: 07/31/2023 INDICATION: Persistent cough for 3 weeks, Subacute cough COMPARISON: 04/24/2016 IMPRESSION: Negative chest. Kimmy Crocker PA-C RAD GD documented in this encounter Visit Diagnoses Diagnosis Subacute cough- Primary Cough Subacute cough Cough documented in this encounter Care Teams House Wirer Relationship Specialty Start Date End Date Jamarcus Cordero, TRANSPORTATION MUSEUM HELPER, SOFTWARE DEVELOPMENT ENGINEER [address] [place] [address] PCP - General Nurse Practitioner 10/08/19 documented as of this encounter
--- OUTSIDE RECORDS SUMMARY | 2023-12-10 14:07 | XMS_ITS | Encounter Summary ---
Author Name Unknown Organization [facility] Address [address], [place] [address] Care Team Providers Care Mobile Product Manager Name Role Phone Jamarcus Cordero APRN, CNP Primary Care Provid er Reason for Visit * Procedure/Equipment (Routine) - New Request Specialty Diagnoses / Procedures Referred By Arlen zamorano Referred To Contact Diagnoses Lightheadedness Elizabeth Jeter PA-C [address] [place] [address] Referral ID Status Reason Start Date Expiration Date V isits Requested Visits Authorized [id number] New Request 10/30/2023 01/28/2025 1 1 Encounter Details Date Type Department Care Team Description 10/31/2023 1:56 PM DEVELOPMENTAL PSYCHOLOGIST - 10/31/2023 11:59 PM DEVELOPMENTAL PSYCHOLOGIST Hospital Encounter [facility] Center Electrocardiogram, Holter, Event Recorder [address] [place] [address] Lightheadedness (Primary Dx) Discharge Disposition: Home Social History Tobacco Use [...] RECORDER 8-15 DAYS Routine 11/20/2023 10:25 AM DEVELOPMENTAL PSYCHOLOGIST Lightheadedness documented in this encounter Results * Ziopatch Recorder 8-15D - [id number] (11/20/2023 10:25 AM DEVELOPMENTAL PSYCHOLOGIST) 11/20/2023 10:2 5 AM DEVELOPMENTAL PSYCHOLOGIST Narrative [facility]USE [facility] - 11/20/2023 3:00 PM DEVELOPMENTAL PSYCHOLOGIST Summary: - Zio is unremarkable - The [...] max rate of 148 bpm, the longest cevpsrh46.6 secs with an avg rate of 125 bpm. Isolated SVEs were rare (<1.0%), SVE Couplets were rare (<1.0%), and SVE Triplets were rare (<1.0%). Isolated VEs were rare (<1.0%), VE Couplets were rare (<1.0%), and no VETriplets were present. Ventricular Trigeminy was present. Confirmed by Dain Keating ([id number]) on 11/20/2023 3:00:43 PM Elizabeth Jeter PA-C PN ECG ORDERABLES [facility] [address] [place] [address] documented in this encounter Visit Diagnoses Diagnosis Lightheadedness- Primary Dizziness and giddiness documented in this encounter Care Teams Mobile Product Manager Relationship Specialty Start Date End Date Jamarcus Cordero, ART OBJECTS SUPERVISOR, PRINTING SPECIALIST [address] [place] [address] PCP - General Nurse Practitioner 10/08/19 documented as of this encounter
--- OUTSIDE RECORDS SUMMARY | 2023-12-10 14:07 | XMS_ITS | Encounter Summary ---
Author Name Unknown Organization [facility] Address [address], [place] [address] Care Team Providers Care Plastics Engineer Name Role Phone Jamarcus Cordero APRN, CNP Primary Care Provid er Encounter Details Date Type Department Care Team Description 10/31/2023 9:00 AM REPTILE KEEPER Lab Visit [facility] [address] [place] [address] Lightheadedness Social History Tobacco Use Types Packs/Day Years [...] Procedure Name Priority Date/Time Associated Diagnosis Comments URINALYSIS ROUTINE, MICRO/CULTURE IF POS Routine 10/31/2023 9:38 AM REPTILE KEEPER Lightheadedness UA MICRO Routine 10/31/2023 9:38 AM REPTILE KEEPER Lightheadedness CBC AND DIFFERENTIAL PANEL Routine 10/31/2023 9:07 AM REPTILE KEEPER Lightheadedness COMPLETE BLOOD COUNT-W/DIFF Routine 10/31/2023 9:07 AM REPTILE KEEPER Lightheadedness COMPREHENSIVE METABOLIC PANEL Routine 10/31/2023 9:07 AM REPTILE KEEPER Lightheadedness documented in this encounter Results * (ABNORMAL) Urine Microscopic Evaluation: Clean Catch (10/31/2023 9:38 AM REPTILE KEEPER) Red Blood Cells 0-3 0 - 3 /HPF 10:02 AM REPTILE KEEPER [facility] White Blood Cells 0-5 0 - 5 /HPF 10/31/2023 10:02 AM REPTILE KEEPER [facility] Bacteria Few(A) None Seen /HPF 10/31/2023 10:02 AM REPTILE KEEPER [facility] Squamous Epithelial Cells Moderate(A ) None Seen, Occasional , Few /HPF 10/31/2023 10:02 AM REPTILE KEEPER [facility] Sperm Present(A) None Seen /HPF 10/31/2023 10:02 AM REPTILE KEEPER [facility] Urine URINE SPECIMEN COLLECTION, CLEAN CATCH / Unknown Non-blood Collection / Unknown 10/31/2023 9:38 AM REPTILE KEEPER 10/31/2023 9:38 AM REPTILE KEEPER Elizabeth Jeter PA-C LAB_1 [facility] [address] [place] [address], [facility] [phone] * (ABNORMAL) Urinalysis Routine, Micro/Culture if Pos: Clean Catch (10/31/2023 9:38 AM REPTILE KEEPER) Urine Culture Comment Urinalysis results do not meet criteria for urine culture reflex. 10/31/2023 10:03 AM REPTILE KEEPER [facility] Urine Color Yellow 10/31/2023 10:03 AM REPTILE KEEPER [facility] Urine Clarity Clear Clear 10/31/2023 10:03 AM REPTILE KEEPER [facility] Specific [place], Urine 1.015 1.005 - 1.030 10/31/2023 10:03 AM REPTILE KEEPER [facility] PH Urine 6.0 5.0 - 8.0 10/31/2023 10:03 AM REPTILE KEEPER [facility] Protein, Urine Qual (mg/dL) Negative Neg/Trace 10/31/2023 10:03 AM [facility] Glucose Urine Qual (mg/dL) Negative Negative 10/31/2023 10:03 AM [facility] Ketones, Urine (mg/dL) Negative Negative 10/31/2023 10:03 AM [facility] Urobilinogen, Urine (EU/dL) 0.2 <2.0 10/31/2023 10:03 AM [facility] Bilirubin Urine Negative Negative 10/31/2023 10:03 AM [facility] Blood, Urine Small(A) Neg/Trace 10/31/2023 10:03 AM [facility] Nitrite Urine Negative Negative 10/31/2023 10:03 AM [facility] Leukocyte Est. Negative Negative 10/31/2023 10:03 AM [facility] Urine Source Clean Catch 10/31/2023 10:03 AM [facility] Urine URINE SPECIMEN COLLECTION, CLEAN CATCH / Unknown Non-blood Collection / Unknown 10/31/2023 9:38 AM REPTILE KEEPER 10/31/2023 9:38 AM [facility] Elizabeth Jeter PA-C LAB_1 [facility] [address] [place] [address], [facility] [phone] * Complete Blood Count-W/Diff (10/31/2023 9:07 AM [facility]) WBC 6.3 3.5 - 10.5 x10(9)/L 10/31/2023 9:08 AM [facility] RBC 4.70 4.32 - 5.72 x10(12)/L 10/31/2023 9:08 AM [facility] Hemoglobin 14.5 13.5 - 17.5 g/dL 10/31/2023 9:08 AM [facility] HCT 44.4 38.8 - 50.0 % 10/31/2023 9:08 AM [facility] MCV 94.5 80.0 - 100.0 fL 10/31/2023 9:08 AM [facility] MCH 30.9 27.6 - 33.3 pg 10/31/2023 9:08 AM [facility] MCHC 32.7 31.5 - 35.2 g/dL 10/31/2023 9:08 AM [facility] RDW 12.6 11.9 - 15.5 % 10/31/2023 9:08 AM [facility] Platelets 196 150 - 450 x10(9)/L 10/31/2023 9:08 AM [facility] Neutrophil Absolute 3.7 1.7 - 7.0 10(9)/L 10/31/2023 9:08 AM [facility] Lymphocyte Absolute 1.7 1.0 - 4.8 10(9)/L 10/31/2023 9:08 AM [facility] Monocyte Absolute 0.7 0.2 - 0.9 10(9)/L 10/31/2023 9:08 AM [facility] Eosinophil Absolute 0.3 0.0 - 0.5 10(9)/L 10/31/2023 9:08 AM [facility] Basophil Absolute 0.0 0.0 - 0.3 10(9)/L 10/31/2023 9:08 AM [facility] Immature Granulocyte % 0.2 0.0 - 0.5 % 10/31/2023 9:08 AM [facility] Blood Venipuncture / Unknown 10/31/2023 9:07 AM REPTILE KEEPER 10/31/2023 9:07 AM [facility] Elizabeth Jeter PA-C LAB_1 [facility] [address] [place] [address], [facility] [phone] * (ABNORMAL) Comp Metabolic Panel (10/31/2023 9:07 AM REPTILE KEEPER) Sodium 138 136 - 145 mmol/L 10/31/2023 3:01 PM [facility] Potassium 4.1 3.5 - 5.1 mmol/L 10/31/2023 3:01 PM [facility] Chloride 107 98 - 109 mmol/L 10/31/2023 3:01 PM [facility] CO2 28 20 - 29 mmol/L 10/31/2023 3:01 PM [facility] Anion Gap 3(L) 7 - 16 mmol/L 10/31/2023 3:01 PM [facility] Calcium 9.2 8.4 - 10.4 mg/dL 10/31/2023 3:01 PM [facility] BUN 16 7 - 26 mg/dL 10/31/2023 3:01 PM [facility] Creatinine 0.86 0.73 - 1.18 mg/dL 10/31/2023 3:01 PM [facility] Alkaline Phosphatase 109 40 - 150 U/L 10/31/2023 3:01 PM [facility] AST (SGOT) 24 10 - 40 U/L 10/31/2023 3:01 PM [facility] ALT (SGPT) 22 <=55 U/L 10/31/2023 3:01 PM [facility] Bilirubin, Total 1.6(H) 0.2 - 1.2 mg/dL 10/31/2023 3:01 PM [facility] Protein, Total 7.4 6.4 - 8.3 g/dL 10/31/2023 3:01 PM [facility] Albumin 3.7 3.5 - 5.0 g/dL 10/31/2023 3:01 PM [facility] Glucose 91 70 - 100 mg/dL 10/31/2023 3:01 PM [facility] Comment:The given reference range is for the fasting state. Non-fasting reference range for glucose is 70 - 180 mg/dL. GFR, Estimated >60 >60 mL/min/1. 73m2 10/31/2023 3:01 PM [facility] Hours Fasting 0.0 8 - 12 Hours 10/31/2023 3:01 PM [facility] Blood Venipuncture / Unknown 10/31/2023 9:07 AM REPTILE KEEPER 10/31/2023 9:07 AM [facility] Elizabeth Jeter PA-C LAB_1 [facility] [address] [place], [place] [id number], [facility] [phone] documented in this encounter Visit Diagnoses Diagnosis Lightheadedness Dizziness and giddiness documented in this encounter Care Teams Plastics Engineer Relationship Specialty Start Date End Date Jamarcus Cordero, ERICA, RIKA [address] [place] [address] PCP - General Nurse Practitioner 10/08/19 documented as of this encounter
--- OUTSIDE RECORDS SUMMARY | 2023-12-10 14:07 | XMS_ITS | Encounter Summary ---
Author Name Unknown Organization [facility] Address [address] [place] [address] Care Team Providers Care Resistor Tester Name Role Phone Jamarcus Cordero APRN, CNP Primary Care Provid er Reason for Visit * Reason Comments Refill Encounter Details Date Type Department Care Team Description 10/25/2023 [facility]ill [facility] [address] [place], [place] [phone] Fortino Milian MD [address], [place] [phone] Refill Social History Tobacco Use Types Packs/Day [...] on filedocumented in this encounter Care Teams Resistor Tester Relationship Specialty Start Date End Date Jamarcus Cordero APRN, CNP [address] [place] [id number] PCP - General Nurse Practitioner 10/08/19 documented as of this encounter
--- OUTSIDE RECORDS SUMMARY | 2023-12-10 14:07 | XMS_ITS | Encounter Summary ---
Author Name Unknown Organization [facility] Address [address], [place] [address] Care Team Providers Care Utility Accounts Director Name Role Phone Jamarcus Cordero APRN, CNP Primary Care Provid er Reason for Referral * Consult/Transfer Care (Routine) - New Request Specialty Diagnoses / Procedures Referred By Arlen zamorano Referred To Contact Diagnoses Memory loss Pepito Calle MD [address] [place] [address] Referral ID Status Reason Start Date Expiration Date V isits Requested Visits Authorized [id number] New Request 09/12/2023 03/10/2024 1 1 Scheduling Instructions This order is your clinician's recommendation for a service and is not an insurance referral which authorizes payment. The recommended service and/or location may not be covered by your insurance plan. Please call the number on your insurance card to find out your specific benefits and coverage for the recommended services and/or location. If you need help scheduling the recommended services, please ask your clinician's staff to assist you. Question Answer Appointment Urgency? Non-Urgent Reason for visit? josesito FREEMAN Comments [facility] BUILDING Reason for Visit * Reason Comments Referral To [facility] Encounter Details Date Type Department Care Team Description 09/12/2023 Telephone [facility] [address] [place] [address] [id number] Pepito Calle MD [address] [place] [address] Referral (To [facility]) Social History Tobacco Use Types Packs/Day Years [...] as of this encounter Nursing Notes * Sangita Reed RN - 09/14/2023 8:53 AM CST Referral and letter and Neuropsych test report faxed to [facility]. Requested MRI- fortino images sent to [facility] also. Nurse left message for Norma about referral sent. CTOR BUILDING * Pepito Calle MD - 09/12/2023 4:28 PM CST Done, I'll bring the packet to your desk, looks like you are not in [facility] tomorrow. CTOR BUILDING * Sangita Reed RN - 09/12/2023 10:12 AM CST Pt left message asking for referral to [facility] for Zackary to be considered for new treatment forAlzheimer dx. Needing referral letter and records sent to fax [phone] with [facility] patient [id number]. Nurse called and spoke to - Norma. No verbal disclosure in chart. They will get that done. CTOR BUILDING documented in this encounter Plan of Treatment Scheduled Referrals Name Type Priority Associated Diagnoses Orde r Schedule Neurology Consult-Adults Referral Routine Memory loss Ordered: 09/12/2023 documented as of this encounter Visit Diagnoses Diagnosis Memory loss- Primary documented in this encounter Care Teams Utility Accounts Director Relationship Specialty Start Date End Date Jamarcus Cordero, TANK CAR REPAIRER, RAW STOCK MACHINE FEEDER [address] [place] [address] PCP - General Nurse Practitioner 10/08/19 documented as of this encounter
--- OUTSIDE RECORDS SUMMARY | 2023-12-10 14:07 | XMS_ITS | Encounter Summary ---
Author Name Unknown Organization [facility] Address [address], [place] [address] Care Team Providers Care Die Designer Name Role Phone Jamarcus Cordero APRN, CNP Primary Care Provid er Reason for Visit * Reason Comments QUESTIONS, GENERAL Entered automaticall y based on patient selection in [employer]. Encounter Details Date Type Department Care Team Description 09/11/2023 1:10 PM OFFICE AGENT E-Visit [facility] [address] [place] [address] Pepito Calle MD [address] [place] [address] Chief Comp: QUESTIONS, GENERAL Social History Tobacco Use Types Packs/Day Years [...] on filedocumented in this encounter Care Teams Die Designer Relationship Specialty Start Date End Date Jamarcus [place]order[place] APRN, CNP [address] [address] [place] [address] PCP - General Nurse Practitioner 10/08/19 documented as of this encounter
--- OUTSIDE RECORDS SUMMARY | 2023-12-10 14:07 | XMS_ITS | Encounter Summary ---
Author Name Unknown Organization [facility] Address [address], [place] [address] Care Team Providers Care Insurance Compliance Analyst Name Role Phone Jamarcus Cordero APRN, CNP Primary Care Provid er Reason for Referral * Procedure/Equipment (Routine) - New Request Specialty Diagnoses / Procedures Referred By Arlen t Referred To Contact Diagnoses Sleep apnea, unspecified type Procedures Echocardiogram Elizabeth Jeter PA-C [address] [place] [address] Referral ID Status Reason Start Date Expiration Date V isits Requested Visits Authorized [id number] New Request 10/30/2023 01/28/2025 1 1 GER OF SUSTAINABILITY * Procedure/Equipment (Routine) - New Request Specialty Diagnoses / Procedures Referred By Arlen zamorano Referred To Contact Diagnoses Lightheadedness Elizabeth Jeter PA-C [address] [place] [address] Referral ID Status Reason Start Date Expiration Date V isits Requested Visits Authorized [id number] New Request 10/30/2023 01/28/2025 1 1 Scheduling Instructions Your clinician has recommended an appointment with [facility]. You may call [phone] to schedule your appointment. We suggest you call your health insurance company about your coverage and benefits for this appointment. Question Answer Appointment Urgency? Non-Urgent Monitoring timeframe: 8 -15 days Comments Patient to receive monitor: In-clinic placement at [address] [place] [address] GER OF SUSTAINABILITY Reason for Visit * Reason Onset Date Comments Video Visit 10/30/2023 Encounter Details Date Type Department Care Team Description 10/30/2023 8:00 AM MANAGER OF SUSTAINABILITY Telemed[facility] [address] [place] [address] Elizabeth Jeter PA-C [address] [place] [address] Lightheadedness (Primary Dx); Aortic dilatation (HRC); Sleep apnea, unspecified type Social History Tobacco Use Types Packs/Day Years [...] on file documented as of this encounter Progress Notes * Elizabeth Jeter PA-C - 10/30/2023 8:00 AM CST Subjective: Today's visit with Zackary was conducted as a scheduled video visit. 68-year-old male who presents virtually today for evaluation of syncope. A few days ago, he was pushing a shopping cart while at a store when he began to feel lightheaded. He describes everything going black and then slowly moving himself down to the ground. He did not lose consciousness. There wasno specific incident that occurred leading up to these symptoms. He did not have any chest pain or u nilateral weakness. Paramedics were called. They performed an EKG and per the patient, this did notshow any signs of ischemia. He presents today for follow-up to discuss this episode of syncope. His is present during the video call today. She mentions that similar episodes of syncope haveoccurred maybe 3 or 4 times over the past year or two. Most of the time he is standing up, but one time about 6 months ago, he did feel lightheaded while he was driving and was experiencing some chest tightness. He pulled over and was seen in the emergency department. He did not black out at that time. Workup in the emergency department was fairly benign. He was found to be slightly hypotensive along with bradycardic. They suspected that his symptoms were related to low blood pressure. He was encouraged to decrease his dose of metoprolol from 25 mg daily to 12.5 mg daily. However, when talking to him today, he has not decreased his dose of metoprolol. He remains on metoprolol 25 mg daily. The patient has a past medical history significant for hypertension, hyperlipidemia, history of tobacco use not want remission, anxiety, obstructive sleep apnea, and obesity. He believes he was started on metoprolol for the treatment of hypertension. Per chart review, he does not have a history of coronary artery disease. He was seen by Cardiology a year ago. A stress echocardiogram was completed in March of 2022 which showed no evidence of stress-induced ischemia. However, there was mild dilation of the aorta measuring 4.4 cm. This was completed at an outside facility. Today during the visit, he feels well. He denies chest pain, pressure, palpitations, any current symptoms of lightheadedness or dizziness, or unilateral muscle weakness/balance issues. Patient's medications, allergies, past medical, surgical, social and family histories were reviewedand updated as appropriate. Objective: There were no vitals taken for this visit. Physical Exam General: Sitting comfortably during visit. No acute distress. Appearance appropriate for age. HEENT: Normocephalic and atraumatic. No scleral icterus or scleral injection. Respiratory: Speaking in full sentences. Non-labored breathing. No use of accessory muscles. Neurology: Alert and oriented x 3. No atypical movements. Skin: No rashes or ecchymosis noted. Psychiatric: Alert & oriented with normal affect and insight. Speech is not pressured. Patient does not appear depressed or anxious. Assessment/Plan: Lightheadedness - ZIOPATCH Holter Adults/Peds - Complete Blood Count -W/Diff; Future - Comp Metabolic Panel; Future - Urinalysis Routine, Micro/Culture if Pos: Clean Catch; Future Aortic dilatation (HRC) Sleep apnea, unspecified type - Echocardiogram; Future 68-year-old male who presents virtually for follow-up after episode of syncope without loss of consciousness. We discussed that this certainly could have been related to hypotension, which has been the case in the past when similar symptoms have occurred. I recommend that he decrease his dose of metoprolol from 25 mg daily down to 12.5 mg daily. I also recommend that he focus on hydration as thiscertainly could have been related to vasovagal presyncope. We will proceed with a repeat echocardiogram for follow-up of ascending aortic dilation. I also recommend proceeding with a Zio monitor which was ordered. Finally, he will come in for routine labs. I recommend that he schedule a follow up ap pointment with Cardiology. We will be in touch with the lab and imaging results. If he develops recurrent symptoms, he is instructed to be seen in the emergency department immediately. All questions addressed. Elizabeth Jeter PA-C GER OF SUSTAINABILITY documented in this encounter Plan of Treatment Scheduled Referrals Name Type Priority Associated Diagnoses Orde r Schedule ZIOPATCH Holter Adults/Peds Referral Routine Lightheadedness Ordered: 10/30/2023 documented as of this encounter Results * Echocardiogram (10/31/2023 1:12 PM MANAGER OF SUSTAINABILITY) 10/31/2023 1:12 PM MANAGER OF SUSTAINABILITY Narrative PN ECHO - 10/31/2023 3:01 PM MANAGER OF SUSTAINABILITY ECHOCARDIOGRAM. Date: 10/31/2023 Start: 01:12 PM Facility: [...] Cordon ??Room Number ? OUTPT Patient ? [id number] ? Date of Study ? 10/31/2023 Number Accession ? [id number] ? Interpreting ?CELSO Holland Number ? Provider ?MD KELLY Date of 1955 ? Ordering Provider Elizabeth Jeter, ?PA-C Primary ? JAMARCUS W ?Field Care Advocate ? EE Provider ?GM ANP ?Attending ? [...] Name AINSLEY Cordon Room Number OUTPT Patient [id number] Date of Study 10/31/2023 Number Interpreting CELSO Holland Surinder Provider MD KELLY Date of 1955 Ordering Provider Elizabeth Jeter PA-C Primary JAMARCUS W Field Care Advocate EE Provider GM FLOR Attending Elizabeth Jeter, Physician DUKE The procedure was explained in detail to the patient. Risks, complications and alternative treatments were reviewed. Informed consent was obtained. Elizabeth Jeter PA-C ET ECHO ORDERABLE S PN ECHO * (ABNORMAL) Urinalysis Routine, Micro/Culture if Pos: Clean Catch (10/31/2023 9:38 AM MANAGER OF SUSTAINABILITY) Urine Culture Comment Urinalysis results do not meet criteria for urine culture reflex. 10/31/2023 10:03 AM MANAGER OF SUSTAINABILITY [facility] Urine Color Yellow 10/31/2023 10:03 AM MANAGER OF SUSTAINABILITY [facility] Urine Clarity Clear Clear 10/31/2023 10:03 AM MANAGER OF SUSTAINABILITY [facility] Specific [place], Urine 1.015 1.005 - 1.030 10/31/2023 10:03 AM MANAGER OF SUSTAINABILITY [facility] PH Urine 6.0 5.0 - 8.0 10/31/2023 10:03 AM MANAGER OF SUSTAINABILITY [facility] Protein, Urine Qual (mg/dL) Negative Neg/Trace 10/31/2023 10:03 AM MANAGER OF SUSTAINABILITY [facility] Glucose Urine Qual (mg/dL) Negative Negative 10/31/2023 10:03 AM MANAGER OF SUSTAINABILITY [facility] Ketones, Urine (mg/dL) Negative Negative 10/31/2023 10:03 AM MANAGER OF SUSTAINABILITY [facility] Urobilinogen, Urine (EU/dL) 0.2 <2.0 10/31/2023 10:03 AM MANAGER OF SUSTAINABILITY [facility] Bilirubin Urine Negative Negative 10/31/2023 10:03 AM MANAGER OF SUSTAINABILITY [facility] Blood, Urine Small(A) Neg/Trace 10/31/2023 10:03 AM MANAGER OF SUSTAINABILITY [facility] Nitrite Urine Negative Negative 10/31/2023 10:03 AM MANAGER OF SUSTAINABILITY [facility] Leukocyte Est. Negative Negative 10/31/2023 10:03 AM MANAGER OF SUSTAINABILITY [facility] Urine Source Clean Catch 10/31/2023 10:03 AM MANAGER OF SUSTAINABILITY [facility] Urine URINE SPECIMEN COLLECTION, CLEAN CATCH / Unknown Non-blood Collection / Unknown 10/31/2023 9:38 AM MANAGER OF SUSTAINABILITY 10/31/2023 9:38 AM MANAGER OF SUSTAINABILITY Elizabeth Jeter PA-C LAB_1 [facility] [address] [place] [address], [facility] [phone] * (ABNORMAL) Comp Metabolic Panel (10/31/2023 9:07 AM [facility]) Sodium 138 136 - 145 mmol/L 10/31/2023 3:01 PM [facility] Potassium 4.1 3.5 - 5.1 mmol/L 10/31/2023 3:01 PM [facility] Chloride 107 98 - 109 mmol/L 10/31/2023 3:01 PM [facility] CO2 28 20 - 29 mmol/L 10/31/2023 3:01 PM [facility] Anion Gap 3(L) 7 - 16 mmol/L 10/31/2023 3:01 PM [facility] Calcium 9.2 8.4 - 10.4 mg/dL 10/31/2023 3:01 PM [facility] BUN 16 7 - 26 mg/dL 10/31/2023 3:01 PM [facility] Creatinine 0.86 0.73 - 1.18 mg/dL 10/31/2023 3:01 PM [facility] Alkaline Phosphatase 109 40 - 150 U/L 10/31/2023 3:01 PM [facility] AST (SGOT) 24 10 - 40 U/L 10/31/2023 3:01 PM [facility] ALT (SGPT) 22 <=55 U/L 10/31/2023 3:01 PM [facility] Bilirubin, Total 1.6(H) 0.2 - 1.2 mg/dL 10/31/2023 3:01 PM [facility] Protein, Total 7.4 6.4 - 8.3 g/dL 10/31/2023 3:01 PM [facility] Albumin 3.7 3.5 - 5.0 g/dL 10/31/2023 3:01 PM [facility] Glucose 91 70 - 100 mg/dL 10/31/2023 3:01 PM [facility] Comment:The given reference range is for the fasting state. Non-fasting reference range for glucose is 70 - 180 mg/dL. GFR, Estimated >60 >60 mL/min/1. 73m2 10/31/2023 3:01 PM [facility] Hours Fasting 0.0 8 - 12 Hours 10/31/2023 3:01 PM [facility] Blood Venipuncture / Unknown 10/31/2023 9:07 AM MANAGER OF SUSTAINABILITY 10/31/2023 9:07 AM MANAGER OF SUSTAINABILITY Elizabeth Jeter PA-C LAB_1 Performing Organization Address City/State/[facility] Co de Phone Number [facility] [id number] [phone] documented in this encounter Visit Diagnoses Diagnosis Lightheadedness- Primary Dizziness and giddiness Aortic dilatation (HRC) Aortic ectasia, unspecified site Sleep apnea, unspecified type Sleep apnea, unspecified type documented in this encounter Care Teams Insurance Compliance Analyst Relationship Specialty Start Date End Date Jamarcus Cordero, AGENT PRODUCER, SHIFT ENGINEER [address] [place] [address] PCP - General Nurse Practitioner 10/08/19 documented as of this encounter
--- OUTSIDE RECORDS SUMMARY | 2023-12-10 14:08 | XMS_ITS | Encounter Summary ---
Author Name Unknown Organization [facility] Address [address] [place] [address] Care Team Providers Care Track Equipment Operator Name Role Phone Jamarcus Cordero APRN, CNP Primary Care Provid er Reason for Visit * Procedure/Equipment (Routine) - Incomplete Specialty Diagnoses / Procedures Referred By Arlen zamorano Referred To Contact Diagnoses Memory loss Tremor Procedures MR Brain W/WO IV Cont Pepito Calle MD [address] [place] [address] Referral ID Status Reason Start Date Expiration Date V isits Requested Visits Authorized [id number] Incomplete 01/11/2023 04/11/2024 1 1 Encounter Details Date Type Department Care Team Description 01/22/2023 10:30 AM CDT Ancillary Procedure [facility] [address] [place], [place] [phone] Pepito Calle MD [address] [place], [place] [phone] Memory loss; Tremor Social History Tobacco Use Types Packs/Day Years Used Date Smoking Tobacco: Former Cigarettes 1 20 0 06/06/1980 - 06/06/2000 Smokeless Tobacco: Never Comments:Quit smoking: Alcohol Use Standard Drinks/Week Comments Yes 6 (1 standard drink = 0.6 oz pure alcohol) average 6 beers a week, never wine, occasionally drinks PHQ-2 Answer Date Recorded PHQ-2 Score 1 02/21/2022 Sex and Gender Information Value Date Recorded Sex Assigned at Not on file Gender Identity Not on file Sexual Orientation Not on file documented as of this encounter Plan of Treatment Not on file documented as of this encounter Procedures Procedure Name Priority Date/Time Associated Diagnosis Comments MR BRAIN W/WO IV CONT Routine 01/22/2023 10:54 AM CDT Memory loss Tremor documented in this encounter Results * MR Brain W/WO IV Cont (01/22/2023 10:54 AM CDT) Anatomical Region Laterality Modality Head Magnetic Resonan ce 01/22/2023 10:0 9 AM CDT Impressions 01/22/2023 1:43 PM CDT INDICATION: Mental status change, unknown cause; memory loss ?? TECHNIQUE: ??MRI of the head with and without contrast using tumor protocol, 11 mL GADOBUTROL 1 MMOL/ML IV SOLN. COMPARISON: CT Head 12/06/2021. FINDINGS: ??Normal diffusion. Moderate scattered periventricular and subcortical white matter signal abnormalities, a nonspecific finding commonly associated with chronic microvascular ischemic changes. The ventricular system, sulci, and cisterns are normal caliber and configuration. Normal flow voids within the major intracranial vessels. Normal enhancement. Moderate polypoid maxillary sinus mucosal thickening. Moderate ethmoid and otherwise mild paranasal sinus mucosal thickening. The visualized calvarium, skull base, and upper cervical spine are unremarkable. IMPRESSION: ?? 1. No acute intracranial abnormality. 2. Senescent changes of global cerebral volume loss and chronic microvascular ischemia. 3. Moderate polypoid maxillary sinus mucosal thickening and moderate ethmoid sinus mucosal thickening. Narrative Procedure Note Samir Rojas MD - 01/22/2023 IMPRESSION INDICATION: Mental status change, unknown cause; memory loss TECHNIQUE: MRI of the head with and without contrast using tumorprotocol, 11 mL GADOBUTROL 1 MMOL/ML IV SOLN. COMPARISON: CT Head 12/06/2021. FINDINGS: Normal diffusion. Moderate scattered periventricular andsubcortical white matter signal abnormalities, a nonspecific findingcommonly associated with chronic microvascular ischemic changes. Theventricular system, sulci, and cisterns are normal caliber andconfiguration. Normal flow voids within the major intracranial vessels.Normal enhancement. Moderate polypoid maxillary sinus mucosal thickening.Moderate ethmoid and otherwise mild paranasal sinus mucosal thickening.The visualized calvarium, skull base, and upper cervical spine areunremarkable. IMPRESSION: 1. No acute intracranial abnormality. 2. Senescent changes of global cerebral volume loss and chronicmicrovascular ischemia. 3. Moderate polypoid maxillary sinus mucosal thickening and moderateethmoid sinus mucosal thickening. Pepito Calle MD RAD MRI documented in this encounter Visit Diagnoses Diagnosis Memory loss Tremor Abnormal involuntary movements documented in this encounter Administered Medications Inactive Administered Medications - up to 3 most recent administrations Medication Order MAR Action Action Date Dose Rate Site gadobutrol (GADAVIST) 1 MMOL/ML injection 11 mL 11 mL, Intravenous, ONCE, On Sun01/22/23 at 1045, For 1 dose Given 01/22/2023 10:37 AM CDT 11 mL sodium chloride 0.9% injection 20 mL 20 mL, Intravenous, ONCE, On Sun01/22/23 at 1045, For 1 dose Given 01/22/2023 10:38 AM CDT 20 mL documented in this encounter Care Teams Track Equipment Operator Relationship Specialty Start Date End Date Jamarcus Cordero, ROUGH PATCHER, ICE CREAM SCOOPER [address] [place] [address] PCP - General Nurse Practitioner 10/08/19 documented as of this encounter
--- OUTSIDE RECORDS SUMMARY | 2023-12-10 14:08 | XMS_ITS | Encounter Summary ---
Author Name Unknown Organization [facility] Address [address] [place] [address] Care Team Providers Care Roughener Name Role Phone Erickson Worrell APRN, RIKA Primary Care Provid er Reason for Visit * Reason Comments Refill citalopram (CELEXA) 20 MG tablet [Pharmacy Med Name: Citalopram Hydrobromide 20 MG Oral Tablet] Encounter Details Date Type Department Care Team Description 03/22/2023 Refill [facility] [address] [place], [place] [phone] Erickson Worrell APRN, OIL GAUGER [address] [place] [id number] Refill (citalopram (CELEXA) 20 MG tablet [Pharmacy Med Name: Citalopram Hydrobromide 20 MG Oral Tablet]) Social History Tobacco Use Types Packs/Day Years [...] as of this encounter Nursing Notes * Candy Whiting RN - 03/22/2023 4:13 PM CDT Further Assistance Needed on Refill from Braiding Machine Tender Patient is due for Qualifying Visit Medication has been refilled for 90 day supply. Patient is due for an Office/Video Visit in the next 90 days.. Call Patient and document using .TERI. After attempting to schedule patient: Close encounter. Refill has already been processed per refill standing order. Requested Prescriptions Pending Prescriptions Disp Refills citalopram (CELEXA) 20 MG tablet [Pharmacy Med Name: Citalopram Hydrobromide 20 MG Oral Tablet] 90 Tablet 0 Sig: Take 1 tablet by mouth once daily * Interface, Out Surescripts Prov Query - 03/22/2023 2:10 PM CDT citalopram (CELEXA) 20 MG tablet [Pharmacy Med Name: Citalopram Hydrobromide 20 MG Oral Tablet] Medication started: 04/27/2017 Last ordered by ERICKSON WORRELL W: 02/21/2022 (394 days ago) QTY: 90, Refills: 3, Sig: take 1 tablet (20 mg) by mouth daily. (changed but equivalent) -> Refill x 1 month (until due for an office visit) Last qualifying visit: 04/26/2022 (with ERICKSON WORRELL) Next scheduled visit: None Age: 67 [employer] Embedded Refills, Reference: [id number], 03/22/2023 2:10:06 PM CDT, Pool: IDALMIS FIELDED REFILL ([id number]) documented in this encounter Plan of Treatment Not on file documented as of this encounter Visit Diagnoses Diagnosis Generalized anxiety disorder (HRC) Generalized anxiety disorder documented in this encounter Care Teams Roughener Relationship Specialty Start Date End Date Erickson Worrell, AREA SUPERVISOR, OIL GAUGER [address] [address] PCP - General Nurse Practitioner 10/08/19 documented as of this encounter
--- OUTSIDE RECORDS SUMMARY | 2023-12-10 14:08 | XMS_ITS | Encounter Summary ---
Author Name Unknown Organization [facility] Address [address], [place] [address] Care Team Providers Care Out Of School Hours Care Worker Name Role Phone Jamarcus Cordero APRN, CNP Primary Care Provid er Reason for Visit * Reason Comments Paperwork Encounter Details Date Type Department Care Team Description 04/16/2023 Telephone [facility] Neurology [address] [place], [place] [address] Pepito Calle MD [address] [place], [place] [address] Paperwork Social History Tobacco Use Types Packs/Day Years [...] Nursing Notes * Sangita Reed RN - 04/16/2023 1:12 PM CDT Received fax Neuropsych Test report. Copy to scan doc. Copy to Dr Calle. documented in this encounter Plan of Treatment Not on file documented as of this encounter Visit Diagnoses Not on filedocumented in this encounter Care Teams Out Of School Hours Care Worker Relationship Specialty Start Date End Date Jamarcus Cordero, ERICA, RIKA [address] [address] [place] [address] [address] PCP - General Nurse Practitioner 10/08/19 documented as of this encounter
--- OUTSIDE RECORDS SUMMARY | 2023-12-10 14:08 | XMS_ITS | Encounter Summary ---
Author Name Unknown Organization [facility] Address [address] [address] Care Team Providers Care Custom Ski Maker Name Role Phone Jamarcus Cordero APRN, CNP Primary Care Provid er Encounter Details Date Type Department Care Team Description 01/11/2023 2:50 PM CDT Lab Visit [facility] [address] [place] [address] Memory loss; Tremor Social History Tobacco Use [...] Procedure Name Priority Date/Time Associated Diagnosis Comments VITAMIN B1, BLOOD Routine 01/11/2023 2:4 7 PM CDT Memory loss Tremor TSH, SENSITIVE Routine 01/11/2023 2:47 PM CDT Memory loss Tremor VITAMIN B12 ONLY Routine 01/11/2023 2:47 PM CDT Memory loss Tremor documented in this encounter Results * TSH (01/11/2023 2:47 PM CDT) TSH, Sensitive 2.27 0.30 - 4.50 uIU/mL 01/11/2023 8:14 PM CDT [facility] Blood Venipuncture / Unknown 01/11/2023 2:47 PM CDT 01/11/2023 2:47 PM CDT Pepito Calle MD LAB_1 [facility] [address] [place] * Vitamin B1, Blood (01/11/2023 2:47 PM CDT) Pathologist [facility] Vitamin B1 163 70 - 180 nmol/L 01/17/2023 2:51 PM CDT [facility] Comment: INTERPRETIVE INFORMATION: Vitamin B1, Whole Blood This assay measures the concentration of thiamine diphosphate (TDP), the primary active form of vitamin B1. Approximately 90 percent of vitamin B1 present in whole blood is TDP. Thiamine and thiamine monophosphate, which comprise the remaining 10 percent, are not measured. This test was developed and its performance characteristics determined by [facility]. It has not been cleared or approved by the US Food and Drug Administration. This test was performed in a CLIA certified laboratory and is intended for clinical purposes. Performed By: [facility] [address] [place] [address] Grill Associate: Kelvin Barone MD, PhD Blood Venipuncture / Unknown 01/11/2023 2:47 PM CDT 01/11/2023 2:47 PM CDT Pepito Calle MD LAB_1 Performing Organization Address [facility] Co de Phone Number [facility] [address] [place], [place] [address] [place], [place] [id number] * (ABNORMAL) Vitamin B12 Only (01/11/2023 2:47 PM CDT) Pathologist [facility] Vitamin B12 1,068(H) 213 - 816 pg/mL 01/11/2023 8:14 PM CDT [facility] Blood Venipuncture / Unknown 01/11/2023 2:47 PM CDT 01/11/2023 2:47 PM CDT Pepito Calle MD LAB_1 [facility] [address] [place] [address], [facility] documented in this encounter Visit Diagnoses Diagnosis Memory loss Tremor Abnormal involuntary movements documented in this encounter Care Teams Custom Ski Maker Relationship Specialty Start Date End Date Jamarcus Cordero, BIAS CUTTER, MANAGER CLIENT SUPPORT [address] [place] [address] PCP - General Nurse Practitioner 10/08/19 documented as of this encounter
--- OUTSIDE RECORDS SUMMARY | 2023-12-10 14:08 | XMS_ITS | Encounter Summary ---
Author Name Unknown Organization [facility] Address [address] [place] [address] Care Team Providers Care Packer Sausage And Wiener Name Role Phone Jamarcus Cordero APRN, CNP Primary Care Provid er Reason for Visit * Reason Onset Date Comments Refill 04/12/2023 Encounter Details Date Type Department Care Team Description 04/12/2023 Refill [facility] [address] [place] [address] Fortino Milian MD [address] [place] [address] Refill Social History Tobacco Use Types Packs/Day [...] as of this encounter Nursing Notes * Lisa Rodriguez RN - 04/17/2023 3:57 PM CDT Patient is due for potassium and creatinine lab draw. Lab orders entered. Sent pt a letter. Refilled medications per protocol. documented in this encounter Plan of Treatment Not on file documented as of this encounter Results * Creatinine/GFR (04/20/2023 9:52 AM CDT) Creatinine 0.90 0.73 - 1.18 mg/dL 04/20/2023 10:40 AM CDT [facility] GFR, Estimated >60 >60 mL/min/1.7 3m2 04/20/2023 10:40 AM CDT [facility] Blood Venipuncture / Unknown 04/20/2023 9:52 AM CDT 04/20/2023 9:52 AM CDT Fortino Milian MD LAB_1 Performing Organization Address [facility]/ZIP Co de Phone Number [facility] [address] [place] [address], [facility] [phone] * Potassium (04/20/2023 9:52 AM CDT) Potassium 4.3 3.5 - 5.1 mmol/L 04/20/2023 10:40 AM CDT [facility] Blood Venipuncture / Unknown 04/20/2023 9:52 AM CDT 04/20/2023 9:52 AM CDT Fortino Milian MD LAB_1 Performing Organization Address [facility]/ZIP Co de Phone Number [facility] [address] [place] [address], [facility] [phone] documented in this encounter Visit Diagnoses Diagnosis Essential hypertension (HRC) Unspecified essential hypertension Generalized anxiety disorder (HRC) Generalized anxiety disorder documented in this encounter Care Teams Packer Sausage And Wiener Relationship Specialty Start Date End Date Jamarcus Cordero, POULTRY PACKER, RIKA [address] [place] [address] PCP - General Nurse Practitioner 10/08/19 documented as of this encounter
--- OUTSIDE RECORDS SUMMARY | 2023-12-10 14:08 | XMS_ITS | Encounter Summary ---
Author Name Unknown Organization [facility] Address [address], [place] [address] Care Team Providers Care Triage Register Nurse Name Role Phone Jamarcus Cordero APRN, CNP Primary Care Provid er Encounter Details Date Type Department Care Team Description 03/15/2023 Orders Only [facility] DEPARTMENT Provider, [place] [address] Social History Tobacco Use Types Packs/Day Years [...] Procedure Name Priority Date/Time Associated Diagnosis Comments PROCEDURE IP 03/15/2023 documented in this encounter Results * PROCEDURE IP (03/15/2023) Anatomical Region Laterality Modality Other Interface Provider DUMMY/OTHER/AR documented in this encounter Visit Diagnoses Not on filedocumented in this encounter Care Teams Triage Register Nurse Relationship Specialty Start Date End Date Jamarcus Cordero APRN, POLYMERIZATION SUPERVISOR [address] [place] [address] PCP - General Nurse Practitioner 10/08/19 documented as of this encounter
--- OUTSIDE RECORDS SUMMARY | 2023-12-10 14:08 | XMS_ITS | Encounter Summary ---
Author Name Unknown Organization [facility] Address [address], [place] [address] Care Team Providers Care Environmental Health Nurse Name Role Phone Jamarcus Cordero APRN, CNP Primary Care Provid er Reason for Referral * Procedure/Equipment (Routine) - Incomplete Specialty Diagnoses / Procedures Referred By Arlen zamorano Referred To Contact Diagnoses Memory loss Tremor Procedures MR Brain W/WO IV Cont Pepito Calle MD [address] [place] [address] Referral ID Status Reason Start Date Expiration Date V isits Requested Visits Authorized [id number] Incomplete 01/11/2023 04/11/2024 1 1 * Consult/Transfer Care (Routine) - Closed Specialty Diagnoses / Procedures Referred By Arlen zamorano Referred To Contact Diagnoses Memory loss Tremor Pepito Calle MD [address] [place] [address] [facility] NEUROPSYCHOLOGY [address] [place] [address] [place] [address] Referral ID Status Reason Start Date Expiration Date Visits Re quested Visits Authorized [id number] Closed 01/11/2023 07/10/2023 1 1 Scheduling Instructions This order is [...] staff to assist you. Question Answer Appointment Urgency Patient Convenience The question I need answered is: ?Neurodegenerative process Patient's first language is Italian Yes Reason for Visit * Reason Comments CONSULT Encounter Details Date Type Department Care Team Description 01/11/2023 2:15 PM CDT Office Visit [facility] [address] [place], [place] [phone] Pepito Calle MD [address] [place], [place] [address] Memory loss (Primary Dx); Tremor Social History Tobacco Use Types Packs/Day [...] Sign Reading Time Taken Comments Blood Pressure 121/73 01/11/2023 2:01 PM CDT Pulse 62 01/11/2023 2:01 PM CDT Temperature - - Respiratory Rate 12 01/11/2023 2:01 PM CDT Oxygen Saturation - - Inhaled Oxygen Concentration - - Weight 100.7 kg (222 lb) 01/11/2023 2:01 PM CDT Height 180.3 cm (5' 11) 01/11/2023 2:01 PM CDT Body Mass Index 30.96 01/11/2023 2:01 PM CDT documented in this encounter Patient Instructions * Patient Instructions* Sangita Reed RN - 01/11/2023 2:15 PM CDT MRI's may require a prior authorization through your insurance. This prior authorization process isstarted when you schedule the MRI. Please schedule this appointment at least 14 days from the day you call to allow this process to be completed. It may require an appeal or more documentation to support medical necessity. If imaging is completed prior to this approval we can not guarantee coverage. Call to schedule follow up appt for 2 weeks after Neuropsychological Testing done. [phone] documented in this encounter Progress Notes * Pepito Calle MD - 01/11/2023 2:15 PM CDT SUBJECTIVE: 01/11/2023: This patient is a 67-year-old man seen for neurologic evaluation today accompanied by his . Concerns are raised for short-term memory issues. Symptoms seemed to come on fairly quickly after he retired a year and a half ago. He can easily forget what someone has told him recently. On a recent occasion a friend was telling the patient about his trip to [place], seeing the baseball players and 1 in [...] for the code for the outside garage door person. He had not used this in several months. Outpatient Medications Prior to Visit Medication Sig Dispense Refill aspirin EC 81 MG enteric coated tablet Take 1 Tablet (81 mg) by mouth daily. atorvastatin (LIPITOR) 40 MG tablet Take 1 Tablet (40 mg) by mouth daily. 90 Tablet 3 citalopram (CELEXA) 20 MG tablet Take 1 Tablet (20 mg) by mouth daily. 90 Tablet 3 losartan (COZAAR) 100 MG tablet Take 1 Tablet (100 mg) by mouth daily. 90 Tablet 3 metoprolol succinate (TOPROL XL) 25 MG 24 hour release tablet Take 1 Tablet (25 mg) by mouth daily.90 Tablet 3 saline (OCEAN) 0.65 % nasal solution Place 2 Sprays into both nostrils every 2 hours as needed (nasal dryness or crusting). 45 mL 11 No facility-administered medications prior to visit. 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 GEN: NAD, pleasant, cooperative CVS: RRR, no JV distention CHEST: No signs of distress, on room air NEURO: MENTAL STATUS: AAOx3 He can name the president and vice president sales but not the previous vice president sales He does fine on naming and repeating He can calculate nickels in 1 dollar 25 cents He does fine on copying the 2 5 sided figures Recall is 0/3 at about 5 minutes. With cues he is able to get 2/3 LANG/SPEECH: Fluent, no dysarthria CRANIAL NERVES: II: Pupils equal and reactive III, IV, : EOM intact, no gaze preference or deviation VII: no facial asymmetry VIII: normal hearing to speech MOTOR: 5/5 in both upper and lower extremities REFLEXES: 2/4 throughout, bilateral flexor planters COORD: Very slight tremor on xaamzl-waev-whsouf testing Rapid alternating movements are fine Tone is fine, no cogwheeling GAIT: gait and station are normal ASSESSMENT & PLAN: Memory loss: We will get an MRI of the brain now along with routine blood work including B12, thiamine and TSH. I would like to have him undergo formal neuropsych testing to better define the deficits. I would like to see him back after the neuropsych testing to go over results of that. In the meantime we will let him know the results of the MRI and blood work and if anything further needs to be done based onthose. He and his are taking appropriate steps such as keeping a common calendar in the kitchen and using posted notes as reminders. Orders Placed This Encounter Vitamin B12 Only Vitamin B1, Blood TSH MR Brain W/WO IV Cont Neuropsychological Testing/Consult-Adult documented in this encounter Plan of Treatment Scheduled Referrals Name Type Priority Associated Diagnoses Orde r Schedule Neuropsychological Testing/Consult-Adult Referral Routine Memory loss Tremor Ordered: 01/11/2023 documented as of this encounter Results * MR Brain W/WO [...] mucosal thickening. Pepito Calle MD RAD MRI * TSH (01/11/2023 2:47 PM CDT) TSH, Sensitive 2.27 0.30 - 4.50 uIU/mL 01/11/2023 8:14 PM CDT [facility] Blood Venipuncture / Unknown 01/11/2023 2:47 PM CDT 01/11/2023 2:47 PM CDT Pepito Calle MD LAB_1 [facility] [address] * Vitamin B1, Blood (01/11/2023 2:47 PM CDT) Vitamin B1 163 70 - 180 nmol/L 01/17/2023 2:51 PM CDT [facility] Comment: INTERPRETIVE INFORMATION: Vitamin B1, Whole Blood This assay measures the concentration of thiamine diphosphate (TDP), the primary active form of vitamin B1. Approximately 90 percent of vitamin B1 present in whole blood is TDP. Thiamine and thiamine monophosphate, which comprise the remaining 10 percent, are not measured. This test was developed and its performance characteristics determined by [facility]. It has not been cleared or approved by the US Food and Drug Administration. This test was performed in a CLIA certified laboratory and is intended for clinical purposes. Performed By: [facility] [address] [place] [id number] General Utility Maintenance Repairer: Kelvin Barone MD, PhD Blood Venipuncture / Unknown 01/11/2023 2:47 PM CDT 01/11/2023 2:47 PM CDT Pepito Calle MD LAB_1 [facility] [employer] [facility] [address] [place], [place] [address] [place] [address] * (ABNORMAL) Vitamin B12 Only (01/11/2023 2:47 PM CDT) Vitamin B12 1,068(H) 213 - 816 pg/mL 01/11/2023 8:14 PM CDT [facility] Blood Venipuncture / Unknown 01/11/2023 2:47 PM CDT 01/11/2023 2:47 PM CDT Pepito Calle MD LAB_1 [facility] [address] documented in this encounter Visit Diagnoses Diagnosis Memory loss- Primary Tremor Abnormal involuntary movements Memory loss Tremor Abnormal involuntary movements documented in this encounter Care Teams Environmental Health Nurse Relationship Specialty Start Date End Date Jamarcus Cordero, LINK FABRIC MACHINE OPERATOR, PAPER COLORER [address] [place] [address] PCP - General Nurse Practitioner 10/08/19 documented as of this encounter
--- OUTSIDE RECORDS SUMMARY | 2023-12-10 14:08 | XMS_ITS | Encounter Summary ---
Author Name Unknown Organization [facility] Address [address] [place] [address] Care Team Providers Care Roll Forming Machine Set Up Operator Name Role Phone Jamarcus Cordero APRN, CNP Primary Care Provid er Reason for Referral * Procedure/Equipment (Routine) - Incomplete Specialty Diagnoses / Procedures Referred By Arlen zamorano Referred To Contact Diagnoses Screening for AAA (abdominal aortic aneurysm) Procedures US Abd AAA Screening Jamarcus Cordero APRN, CNP [address] [place] [id number] Referral ID Status Reason Start Date Expiration Date V isits Requested Visits Authorized [id number] Incomplete 04/20/2023 07/19/2024 1 1 Reason for Visit * Reason Comments MEDICATION CHECK Medicare Annual Wellness Encounter Details Date Type Department Care Team Description 04/20/2023 9:00 AM CDT Office Visit [facility] [address] [facility] [place] [address] Jamarcus Cordero APRN, CNP [address] [facility] [place] [id number] Encounter for Medicare annual wellness exam (Primary Dx); Essential hypertension (HRC); Mixed hyperlipidemia (HRC); Generalized anxiety disorder (HRC); Pre-diabetes; Screening for AAA (abdominal aortic aneurysm); Screening for prostate cancer; Encounter for immunization Social History Tobacco Use Types Packs/Day Years [...] Sign Reading Time Taken Comments Blood Pressure 120/73 04/20/2023 8:59 AM CDT omron average Pulse 62 04/20/2023 8:59 AM CDT Temperature - - Respiratory Rate - - Oxygen Saturation - - Inhaled Oxygen Concentration - - Weight 96.3 kg (212 lb 3.2 oz) 04/20/2023 8:59 AM CDT Height 181 cm (5' 11.25) 04/20/2023 8: 59 AM CDT Body Mass Index 29.39 04/20/2023 8:59 AM CDT documented in this encounter Patient Instructions * Patient Instructions* Jamarcus Cordero APRN, CNP - 04/20/2023 9:00 AM CDT Annual Wellness Visit Summary Your care team is recommending the following tests, procedures or services. Some of these recommendations may not be fully covered by Medicare or your insurance. If you have questions, check with your insurance to determine coverage before completing these services. Health Maintenance Due Health Maintenance Due Topic Date Due ??? Abdominal Aortic Aneurysm (AAA) Screening Never done ??? Pneumococcal 65+ Yrs (2 - PCV) 04/22/2022 ??? COVID-19 Vaccine (5 - Moderna series) 11/17/2022 ??? Prediabetes: HGBA1C 02/21/2023 ??? PSA Screening Discussion 02/21/2023 If your Medicare Welcome or Annual Wellness Visit is showing you are due in the above list, this will be updated after this visit. You had this completed today and are not due for another year. documented in this encounter Progress Notes * Jamarcus Cordero APRN, CNP - 04/20/2023 9:00 AM CDT Medicare Annual Wellness Visit Subjective/Historical: Zackary Mcgowan is a 67 y.o. old male Chief Complaint Patient presents with MEDICATION CHECK Medicare Annual Wellness Current Concerns: None Advance Directives: No advance directives are on file. Written information for advance directives was given. Observed Vitals: BP 120/73 (BP Location: Right Arm, BP Cuff Size: Regular) Comment: omron average Pulse 62 Ht 1.81 m (5' 11.25) Wt 96.3 kg (212 lb 3.2 oz) BMI 29.39 kg/m?? Assessment/Plan 1. Encounter for Medicare annual wellness exam 2. Essential hypertension (HRC) 3. Mixed hyperlipidemia (HRC) 4. Generalized anxiety disorder (HRC) 5. Pre-diabetes 6. Screening for AAA (abdominal aortic aneurysm) 7. Screening for prostate cancer 8. Encounter for immunization Counseling and education provided today includes proper nutrition and health habits, fall prevention, and for those items ordered above. See plan for future preventive services in Patient Instructions. Jamarcus Cordero APRN, CNP 04/20/2023, 10:01 AM Chief concern: Chief Complaint Patient presents with MEDICATION CHECK Medicare Annual Wellness Other concerns: Hypertension, hyperlipidemia, anxiety, prediabetes, health maintenance Past medical history: Past Medical History: Diagnosis Date Diverticulosis of colon 2009 PER COLONOSCOPY Essential hypertension (HRC) 05/06/2013 GERD (gastroesophageal reflux disease) 05/06/2013 Glucose intolerance (impaired glucose tolerance) 09/30/2015 Mixed hyperlipidemia (HRC) 05/06/2013 Obesity (BMI 30-39.9) ([facility]) 02/17/2019 Tobacco abuse, 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 atorvastatin (LIPITOR) 40 MG tablet Take 1 Tablet (40 mg) by mouth daily. 90 Tablet 1 losartan (COZAAR) 100 MG tablet Take 1 Tablet (100 mg) by mouth daily. 90 Tablet 0 metoprolol succinate (TOPROL XL) 25 MG 24 hour release tablet Take 1 Tablet (25 mg) by mouth daily.90 Tablet 1 citalopram (CELEXA) 20 MG tablet Take 1 tablet by mouth once daily 90 Tablet 0 saline (OCEAN) 0.65 % nasal solution Place 2 Sprays into both nostrils every 2 hours as needed (nasal dryness or crusting). (Patient not taking: Reported on 04/20/2023) 45 mL 11 No facility-administered medications prior to visit. Adverse Drug Reactions: No Known Allergies Habits: Social History Socioeconomic History Marital status: Spouse name: Not on file Number of children: 2 Years of education: Not on file Highest education level: Not on file Occupational History Employer: [employer] Tobacco Use Smoking status: Former Packs/day: 1.00 Years: 20.00 Pack years: 20.00 Types: Cigarettes Quit date: 06/06/2000 Years since quittin.8 Smokeless tobacco: Never Tobacco comments: Quit smoking: Vaping Use Vaping Use: Never used Substance and Sexual Activity Alcohol use: Yes Alcohol/week: 6.0 standard drinks Types: 6 Cans of beer per week Comment: average 6 beers a week, never wine, occasionally drinks Drug use: No Sexual activity: Yes Partners: Female control/protection: None Other Topics Concern Bike Helmet Not Asked City Water Not Asked Exercise Not Asked Guns in home Not Asked Seat Belt Not Asked Special Diet Not Asked Weight Concern Not Asked Social History Narrative Not on file Social Determinants of Health Financial Resource Strain: Not on file Food Insecurity: Not on file Transportation Needs: Not on file HPI: Follow-up of multiple chronic issues including hypertension, hyperlipidemia, anxiety, prediabetes. Due for health maintenance including an abdominal aortic aneurysm screening ultrasound and pneumonia vaccine. Concerned about memory issues, family history of dementia. He had a recent neuropsychology test and has a follow-up scheduled with his neurologist. He sees cardiology yearly. Denies other concerns. Review of systems: Denies chest pain, shortness of breath. Denies bowel or bladder symptoms. Deniesnumbness, tingling, swelling in the extremities. Weight is stable. OBJECTIVE: Vital Signs: BP 120/73 (BP Location: Right Arm, BP Cuff Size: Regular) Comment: omron average Pulse 62 Ht 1.81 m (5' 11.25) Wt 96.3 kg (212 lb 3.2 oz) BMI 29.39 kg/m?? Patient is alert oriented and pleasant. No acute distress. Head: Normocephalic. Eyes: PERRLA, full EOM. External exams normal. Ears: Normal pinnae, canals, and TM's. Nose: Patent, without deformity. Throat: Moist mucous membranes without lesions, erythema, or exudate. Neck: Supple, no cervical lymphadenopathy. Thyroid nontender, without swelling or nodules palpated. Respiratory: Normal respiratory effort. Lungs are clear with good breath sounds. Heart: Regular rate and rhythm, no murmurs, rubs,gallops. Abdomen: The abdomen was soft and nontender without guarding rebound or masses. No hepatosplenomegaly. Legs: Without edema. ASSESSMENT: Encounter Diagnoses Name Primary? Encounter for Medicare annual wellness exam Yes Essential hypertension (HRC) Mixed hyperlipidemia (HRC) Generalized anxiety disorder (HRC) Pre-diabetes Screening for AAA (abdominal aortic aneurysm) Screening for prostate cancer Encounter for immunization PLAN: Orders Placed This Encounter Procedures Hgb A1C Glucose Creatinine / GFR Potassium ALT (SGPT) Lipid Panel and Direct LDL(If Needed) Prostatic Specific Antigen (Screen) US Abd AAA Screening PCV20 ([id number]) Patient Instructions Annual Wellness Visit Summary Your care team is recommending the following tests, procedures or services. Some of these recommendations may not be fully covered by Medicare or your insurance. If you have questions, check with your insurance to determine coverage before completing these services. Health Maintenance Due Health Maintenance Due Topic Date Due Abdominal Aortic Aneurysm (AAA) Screening Never done Pneumococcal 65+ Yrs (2 - PCV) 04/22/2022 COVID-19 Vaccine (5 - Moderna series) 11/17/2022 Prediabetes: HGBA1C 02/21/2023 PSA Screening Discussion 02/21/2023 If your Medicare Welcome or Annual Wellness Visit is showing you are due in the above list, this will be updated after this visit. You had this completed today and are not due for another year. Orders Placed This Encounter Medications citalopram (CELEXA) 20 MG tablet Sig: Take 1 Tablet (20 mg) by mouth daily. Dispense: 90 Tablet Refill: 3 Follow-up based on results. Proceed with neurology consult. Billing based on: Complexity The patient was discharged ambulatory and in stable condition and agreed with the above plan. documented in this encounter Plan of Treatment Scheduled Orders Name Type Priority Associated Diagnoses Orde r Schedule US Abd AAA Screening Imaging New Routine Screening for AAA (abdominal aortic aneurysm) Expected: 04/20/2023 (Approximate), Expires: 04/19/2024 documented as of this encounter Results * Prostatic Specific Antigen (Screen) (04/20/2023 9:52 AM CDT) Prostatic Specific Antigen 0.5 0.0 - 4.0 ng/mL 04/20/2023 2:26 PM CDT [facility] Blood Venipuncture / Unknown 04/20/2023 9:52 AM CDT 04/20/2023 9:52 AM CDT [facility] - 04/20/2023 2:26 PM CDT The Nieto PSA Chemiluminescent immunoassay is used. Results obtained with different test methods or kits cannot be used interchangeably. Jamarcus Cordero APRN, CNP LAB_1 [facility] [address] * Lipid Panel and Direct LDL(If Needed) (04/20/2023 9:52 AM CDT) Cholesterol 135 0 - 199 mg/dL 04/20/2023 10:40 AM [facility] Triglyceride 72 <=149 mg/dL 04/20/2023 10:40 AM [facility] HDL Cholesterol 47 >=40 mg/dL 10:40 AM [facility] LDL, Calculated 74 <130 mg/dL 3 10:40 AM [facility] Non HDL Chol, Calculated 88 <=159 mg/dL 04/20/2023 10:40 AM [facility] Cholesterol/HDL Ratio 2.9 04/20/2023 10:40 AM [facility] Hours Fasting 12 04/20/2023 10:40 AM [facility] Blood Venipuncture / Unknown 04/20/2023 9:52 AM CDT 04/20/2023 9:52 AM CDT Jamarcus Harkinsnson RIKA MALDONADO LAB_1 Performing Organization Address [facility] de Phone Number [facility] [address] [phone], [facility] [phone] * ALT (SGPT) (04/20/2023 9:52 AM CDT) Pathologist [facility] ALT (SGPT) 22 <=55 U/L 04/20/2023 10:40 AM CDT [facility] Blood Venipuncture / Unknown 04/20/2023 9:52 AM CDT 04/20/2023 9:52 AM CDT Jamarcus Barrientos Gil MALDONADO CNP LAB_1 Performing Organization Address [facility] Phone Number [facility] [address] [phone], [facility] [phone] * Glucose (04/20/2023 9:52 AM CDT) [facility] Glucose 91 70 - 100 mg/dL 04/20/2023 10:40 AM CDT [facility] Comment:The given reference range is for the fasting state. Non-fasting reference range for glucose is 70 - 180 mg/dL. Hours Fasting 12 04/20/2023 10:40 AM T [facility] Blood Venipuncture / Unknown 04/20/2023 9:52 AM CDT 04/20/2023 9:52 AM CDT Jamarcus Barrientos Gil MALDONADO CNP LAB_1 Performing Organization Address [facility] Phone Number [facility] [address] [phone], [facility] [phone] * Hgb A1C (04/20/2023 9:52 AM CDT) Hemoglobin A1C (Rapid) 5.2 <=5.6 % 04/20/2023 10:16 AM CDT [facility] Estimated Average Glucose (Calc) 103 < 117 mg/dL 04/20/2023 10:16 AM T [facility] Comment:Estimated average gl ucose (eAG) converts A1c into glucose units (mg/dL) and estimates average glucose over the past approximately 3 months. The eAG reference interval (<117 mg/dL) corresponds to an A1c of <5.7%. Blood Venipuncture / Unknown 04/20/2023 9:52 AM CDT 04/20/2023 9:52 AM CDT Narrative [facility] - 04/20/2023 10:16 AM CDT The test method used for this Hemoglobin A1c result can experience interference from elevated hemoglobin and other hemoglobin variants. In patients with results that do not correlate clinically, contact the lab for further direction. Jamarcus Cordero APRN, CNP LAB_1 [facility] [address] [place] [address], [facility] [phone] documented in this encounter Visit Diagnoses Diagnosis Encounter for Medicare annual wellness exam- Primary Essential hypertension (HRC) Unspecified essential hypertension Mixed hyperlipidemia (HRC) Mixed hyperlipidemia Generalized anxiety disorder (HRC) Generalized anxiety disorder Pre-diabetes Other abnormal glucose Screening for AAA (abdominal aortic aneurysm) Screening for other and unspecified cardiovascular conditions Screening for prostate cancer Special screening for malignant neoplasm of prostate Encounter for immunization Need for other specified prophylactic vaccination against single bacterial disease documented in this encounter Care Teams Roll Forming Machine Set Up Operator Relationship Specialty Start Date End Date Jamarcus Cordero APRN, CNP [address] [place] [address] PCP - General Nurse Practitioner 10/08/19 documented as of this encounter
--- OUTSIDE RECORDS SUMMARY | 2023-12-10 14:08 | XMS_ITS | Clinical Summary ---
Author Name Unknown Organization [facility] Address [place], [place] [address] Care Team Providers Care Bat Person Name Role Phone Jamarcus Cordero MATERIALS ANALYST Primary Care Provider [phone] Social History Tobacco Use Types Packs/Day Years Used Date Smoking Tobacco: Never Assessed Sex and Gender Information Value Date Recorded Sex Assigned at Not on file Gender Identity Not on file Sexual Orientation Not on file Plan of Treatment Health Maintenance Due Date Last Done Comments Tdap 1966 Depression screening for age 12+ 1967 BMI (ht and wt on same day) for age 18+ 1973 Hepatitis C screening for age 18-79 1973 Tetanus booster 1975 Colonoscopy through age 75 2000 Lipids for age 45-75 2000 Zoster (shingles) series for age 50+ (1 of 2) 2005 Pneumococcal series for age 65+ (1 of 1 - PCV) 2020 COVID-19 vaccine series ( season) 2023 01/07/2021, 12/10/2020 Influenza for age 65+ 06/29/2023 Care Teams Bat Person Relationship Specialty [place] [address] [address] [place] [address] PCP - General Nurse Practitioner 06/16/21
--- OUTSIDE RECORDS SUMMARY | 2023-12-10 14:08 | XMS_ITS | Encounter Summary ---
Author Name Unknown Organization [facility] Address [address], [place] [address] Care Team Providers Care Meter Maintenance Person Name Role Phone Jamarcus Cordero APRN, CNP Primary Care Provid er Reason for Visit * Reason Comments UPDATE Neuropsych testing Encounter Details Date Type Department Care Team Description 02/02/2023 [facility] Neurology [address] [place], [place] [phone] Pepito Calle MD [address] [place] [address] UPDATE (Neuropsych testing) Social History Tobacco Use Types Packs/Day Years [...] Nursing Notes * Sangita Reed RN - 02/02/2023 9:32 AM CDT , Mechelle calls to say they would like referral for Neuropsych testing faxed to Dr Joel العلي @ [phone]. She states Zackary can be seen there sooner. Referral and visit notes and MRI report sent as requested. Nurse reminded Mechelle to call us for follow up appt after Neuro testing. documented in this encounter Plan of Treatment Not on file documented as of this encounter Visit Diagnoses Not on filedocumented in this encounter Care Teams Meter Maintenance Person Relationship Specialty Start Date End Date Jamarcus Cordero, TUTOR, BINDING DYER [address] [place] [address] PCP - General Nurse Practitioner 10/08/19 documented as of this encounter
--- OUTSIDE RECORDS SUMMARY | 2023-12-10 14:08 | XMS_ITS | Encounter Summary ---
Author Name Unknown Organization [facility] Address [address], [place] [address] Care Team Providers Care Advanced Nursing Professor Name Role Phone Jamarcus Cordero APRN, CNP Primary Care Provid er Reason for Visit * Reason Comments Referral Neuropsychological t esting Encounter Details Date Type Department Care Team Description 01/12/2023 [facility]phone [facility] [address] Neurology [address] [place], [place] [phone] Pepito Calle MD [address] [place], [place] [phone] Referral (Neuropsychological testing) Social History Tobacco Use Types Packs/Day [...] Nursing Notes * Sangita Reed RN - 01/12/2023 9:43 AM CDT Referral sent to Dr Rehman's office. Pt aware. documented in this encounter Plan of Treatment Not on file documented as of this encounter Visit Diagnoses Not on filedocumented in this encounter Care Teams Advanced Nursing Professor Relationship Specialty Start Date End Date Jamarcus Cordero, MONITORING ANALYST, RN ORTHOPAEDICS [address] [address] [place] [address] PCP - General Nurse Practitioner 10/08/19 documented as of this encounter
--- OUTSIDE RECORDS SUMMARY | 2023-12-10 14:08 | XMS_ITS | Encounter Summary ---
Author Name Unknown Organization [facility] Address [address] [place] [address] Care Team Providers Care Casting And Curing Operator Name Role Phone Erickson Worrell APRN, CNP Primary Care Provid er Reason for Visit * Reason Comments Refill losartan (COZAAR) 10 0 MG tablet [Pharmacy Med Name: Losartan Potassium 100 MG Oral Tablet] Encounter Details Date Type Department Care Team Description 03/27/2023 Refill [facility] [address] [place], [place] [phone] Erickson Worrell APRN, CNP [address] [place], [place] [phone] Refill (losartan (COZAAR) 100 MG tablet [Pharmacy Med Name: Losartan Potassium 100 MG Oral Tablet]) Social History Tobacco Use [...] as of this encounter Nursing Notes * Erickson Worrell APRN, CNP - 03/29/2023 1:00 PM CDT Approved, 90 day supply with 0 refills. Overdue for a follow-up and labs. No further refills will be given. * Ariane Montgomery RN - 03/29/2023 12:40 PM CDT Further Assistance Needed on Refill from Clinician RN reviewed. Patient due for Lab(s). Cr and K are overdue (performed over 13 months ago, required every 12 months) Last qualifying visit: 04/26/2022 (with ERICKSON WORRELL) Next scheduled visit: None Review pended order for accuracy and sign if appropriate, Clinician to order lab(s) and document ifpatient is due for lab only visit or office visit and lab, and Route to Front Line to schedule appointment Requested Prescriptions Pending Prescriptions Disp Refills losartan (COZAAR) 100 MG tablet [Pharmacy Med Name: Losartan Potassium 100 MG Oral Tablet] 90 Tablet 0 Sig: Take 1 tablet by mouth once daily * Interface, Out Surescripts Prov Query - 03/27/2023 11:24 AM CDT losartan (COZAAR) 100 MG tablet [Pharmacy Med Name: Losartan Potassium 100 MG Oral Tablet] Medication started: 05/10/2017 Last ordered by ERICKSON WORRELL: 02/21/2022 (399 days ago) QTY: 90, Refills: 3, Sig: take 1 tablet (100 mg) by mouth daily. (changed but equivalent) -> Cr and K are overdue (performed over 13 months ago, required every 12 months) Last qualifying visit: 04/26/2022 (with ERICKSON WORRELL) Next scheduled visit: None Cr: 0.8 mg/dL on 02/21/2022 K: 5 mEq/L on 02/21/2022 [facility] Embedded Refills, Reference: [id number], 03/27/2023 11:24:39 AM CDT, Pool: IDALMIS IMED REFILL ([id number]) * Interface, Out Dydra Prov Query - 03/27/2023 11:24 AM CDT The following lab order(s) may be associated with the following Patient Result Comment (Entered by Erickson Worrell APRN, CNP at 02/21/2022 4:26 PM): LIPID PANEL AND DIRECT LDL(IF NEEDED) Remains well controlled. Recheck in 1 year. documented in this encounter Plan of Treatment Not on file documented as of this encounter Visit Diagnoses Diagnosis Essential hypertension (HRC) Unspecified essential hypertension documented in this encounter Care Teams Casting And Curing Operator Relationship Specialty Start Date End Date Erickson Worrell APRN, CNP [address] [place], [place] [address] PCP - General Nurse Practitioner 10/08/19 documented as of this encounter
[2023-12-10 14:11] LABS: Chloride* 107 mmol/L (96-114); Potassium* 3.9 mmol/L (3.6-5.1); Sodium* 139 mmol/L (135-149)
[2023-12-10 14:14] LABS: Anion Gap 6 mEq/L (7-15); Blood Urea Nitrogen* 14 mg/dL (7-30); Carbon Dioxide* 26 mmol/L (20-32); Creatinine* 0.7 mg/dL (0.5-1.5); Estimated Glomerular Filt Rate 100 ml/min
[2023-12-10 14:15] LABS: Calcium* 9.1 mg/dL (8.4-10.6); Glucose* 104 mg/dL (60-115)
[2023-12-10 14:27] LABS: Troponin I* 0.01 ng/mL (0.01-0.04)
--- NOTE | 2023-12-10 15:14 | ED.NURSE ---
report given to Mela BLOUNT, pt will transfer to [facility] via wc with tele.
--- NOTE | 2023-12-10 16:20 | P.IMHP_ITS ---
Hospitalist- H&P: HPI History of Present Illness Date Seen: 12/10/23 Chief complaint: Intermittent high BP Narrative: Zackary Mcgowan is a 68 year old male who presented to the ED with spells over the past few days. Symptoms begin with a warm feeling in chest that spreads distally to extremities. No pain in chest, no dyspnea. Yeso as if he could pass out when spells occur, but no true syncope. has noted that patient becomes haney during these episodes. Patient has a history of symptomatic bradycardia and pre-syncope/syncope, noted as early as 04/2023 (seen in ED at that time, and recommendation was made to decrease his Metoprolol from 25 --> 12.5mg; however, Zackary and his didn't realize they needed to cut his pills in half, so they didn't start the 12.5mg dose until September 2023 after a syncopal event in [place]). After his 10/11 syncopal episode, he wore a production shift supervisor for 2 weeks with no concerning rhythms. He is still on 12.5mg of Metoprolol, which he takes at . Previous EKGs have exhibited sinus bradycardia and 1st degree AV block. ER Course and Findings: - EKG exhibited sinus bradycardia with 1st degree AV block (same as previous) - reassuring labs, negative troponin - patient noted to have one of his spells in the ED, remained in sinus bradycardia during event Given symptoms (presumably iatrogenic from Metoprolol), patient is admitted for telemetry monitoring. We will be holding his Metoprolol during stay. Histories reviewed, PCP is Jamarcus Cordero SPANISHER at [facility]. Review of Systems Status of ROS: Reports: 10 or more systems reviewed and unremarkable except as noted in History and below Narrative: Specifically denies headache, vision changes, paresthesias (other than during pre-syncopal episodes) or weakness. Zackary is working with [facility] for his [facility]. Workup has included lab work, PET-CT of brain, and LP (results all reassuring, including TSH, lytes, CBC, CMP). 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 Lives with Mechelle (would be medical decision maker if needed). Adult children and grandchildren locally. Requests full code status, would not want to be kept alive artificially for any length of time. Quit smoking approximately 20 years ago, 1-2 beers 5 nights per week. What is your current living situation?: I presently have a place to live Problems where you live: no known problems Problems where you live details: None In the past 12 months, utilities in danger of being shut off: no In past 12 months, lack of transportation kept you from medical appts, meetings, work, or getting things needed for daily living: no In the past 12 mos, have been you worried that your food would run out before you had money to buy more?: never true In the past 12 mos, the food you bought just didn't last and you didn't have money to buy more?: never true Highest level of school completed/degree received: Associate degree: occupational, technical, vocational program Smoking Status: Former smoker Do you use any of these nicotine containing products: None How often do you have a drink containing alcohol: 4 or more times a week Alcohol type: beer Alcohol type details: 1 beer 5 nights a week How many standard drinks containing alcohol do you have on a typical day: 1 or 2 How often do you have six or more drinks on one occasion: Less than monthly AUDIT-C Alcohol total score: 5 Non-prescribed substance use: denies use Caffeine: Yes How often does anyone, including family, friends and others, physically hurt you : never How often does anyone, including family, friends and others, insult or talk down to you: never How often does anyone, including family, friends and others, threaten you with harm: never How often does anyone, including family, friends and others, scream or curse at you: never service: No Meds Home Medications and Allergies Home Medications Medication Instructions Recorded Confirmed Type atorvastatin 40 mg tablet 40 mg PO HS 12/10/23 12/10/23 History donepezil 10 mg tablet (Aricept) 10 mg PO HS 12/10/23 12/10/23 History escitalopram oxalate 20 mg tablet 20 mg PO DAILY 12/10/23 12/10/23 History losartan 100 mg tablet (Cozaar) 100 mg PO DAILY 12/10/23 12/10/23 History metoprolol succinate 25 mg 12.5 mg PO HS 12/10/23 12/10/23 History tablet,extended release 24 hr Allergies Allergy/AdvReac Type Severity Reaction Status Date / Time No Known Drug Allergies Allergy Verified 12/10/23 11:03 Exam Narrative: Exam Narrative: GEN: Alert and oriented, answering questions appropriately HEENT: EOMIs bilaterally, no scleral icterus CV: Sinus bradycardia, no concerning murmurs, no carotid bruits R: LCTA bilaterally without concerning wheezing, air movement is adequate Ext: wwp, no concerning edema Skin: No concerning skin lesions or rashes, no jaundice on exposed skin Neuro: No focal deficits, no facial droop, no resting tremor. Moving extremities x4 Psych: Appropriate Const: Vital Signs, click to edit/add: Vital Signs - 24 hr 12/10/23 10:57 12/10/23 13:52 12/10/23 14:00 Temperature 97.3 F L Pulse Rate 52 L 53 L Pulse Rate [Left B lood Pressure Cuff ] Pulse Rate [Pulse Oximeter] 57 L Respiratory Rate 18 Blood Pressure Blood Pressure [Le ft Arm] Blood Pressure [Ri ght Upper Arm] 155/78 H Pulse Oximetry 99 96 96 Oxygen Delivery Me thod Room Air 12/10/23 14:01 12/10/23 14:02 12/10/23 14:31 Temperature Pulse Rate 48 L 49 L 51 L Pulse Rate [Left B lood Pressure Cuff ] Pulse Rate [Pulse Oximeter] Respiratory Rate Blood Pressure 152/80 H 147/80 H Blood Pressure [Le ft Arm] Blood Pressure [Ri ght Upper Arm] Pulse Oximetry 96 96 95 Oxygen Delivery Me thod 12/10/23 14:32 12/10/23 15:00 12/10/23 15:00 Temperature Pulse Rate 51 L 55 L 55 L Pulse Rate [Left B lood Pressure Cuff ] Pulse Rate [Pulse Oximeter] Respiratory Rate Blood Pressure Blood Pressure [Le ft Arm] Blood Pressure [Ri ght Upper Arm] Pulse Oximetry 95 95 Oxygen Delivery Me thod 12/10/23 15:02 12/10/23 15:23 12/10/23 15:23 Temperature 97.6 F Pulse Rate 54 L Pulse Rate [Left B lood Pressure Cuff ] 53 L Pulse Rate [Pulse Oximeter] Respiratory Rate 20 20 Blood Pressure 155/78 H Blood Pressure [Le ft Arm] 165/83 H Blood Pressure [Ri ght Upper Arm] Pulse Oximetry 93 98 98 Oxygen Delivery Me thod Room Air Room Air Hospitalist - H&P: Result Labs Labs: Short CBC 12/10/23 Range/Units 13:40 WBC 9.28 (4.50-11.00) K/uL Hgb 13.8 (13.5-17.5) gm/dL Hct 41.5 (37.0-53.0) % Plt Count 199 (140-440) K/uL BMP 12/10/23 13:40 Sodium 139 Potassium 3.9 Chloride 107 Carbon Dioxide 26 BUN 14 Creatinine 0.7 Glucose 104 Calcium 9.1 Cardiac Enzymes 12/10/23 Range/Units 13:40 Troponin I 0.01 (0.01-0.04) ng/mL Assessment and Plan Assessment and plan (1) Bradycardia, sinus: Problem comment: - likely iatrogenic - hold Metoprolol (takes at night), follow on telemetry Status: Acute (2) Near syncope: Problem comment: - history of this with known bradycardia, exam otherwise reassuring with recent Neurological workup (including labs, imaging, LP) - follow telemetry, orthostatics Status: Acute (3) 1st degree AV block: Status: Acute Plan - per above - SCDs and ambulation for ppx - Full Code requested - updated at bedside, questions answered
[2023-12-10] MEDS: DONEPEZIL 10 MG TABLET PO (21:27)
[2023-12-10] MEDS: ATORVASTATIN CALCIUM 40 MG TABLET PO (21:27)
[2023-12-10] MEDS: SODIUM CHLORIDE 0.9 % (FLUSH) 10 ML SYRINGE 5 ML IVF (21:27)
--- NOTE | 2023-12-10 22:57 | PC.NURSE ---
Patient arrived to unit from ED. On tele and holding metoprolol. Patient having many episodes during the shift of his warm feelings and dizziness. No episodes of syncope. Patient bradycardic, but otherwise vitally stable. Up independently. Orthostatic blood pressure completed. Nursing to continue to monitor.
[2023-12-11] VITALS (9 sets, daily range): BP systolic 121–161; BP diastolic 69–91; PULSE 51–66; RESP 16–20; TEMP 36.7–36.8; O2SAT 94–98
--- NOTE | 2023-12-11 04:45 | PC.NURSE ---
Shift note: Pt has doing well. Denied dizziness, headache and light headedness. Pt was able walk independently in room. Heart rate is still bradycardia. Pt had adequate sleep.
[2023-12-11 06:42] LABS: Chloride* 109 mmol/L (96-114); Potassium* 4.2 mmol/L (3.6-5.1); Sodium* 139 mmol/L (135-149)
[2023-12-11 06:45] LABS: Anion Gap 5 mEq/L (7-15); Blood Urea Nitrogen* 14 mg/dL (7-30); Carbon Dioxide* 25 mmol/L (20-32); Creatinine* 0.7 mg/dL (0.5-1.5); Estimated Glomerular Filt Rate 100 ml/min
[2023-12-11 06:46] LABS: Calcium* 8.8 mg/dL (8.4-10.6); Glucose* 112 mg/dL (60-115); Magnesium* 2.1 mg/dL (1.5-2.6)
[2023-12-11] MEDS: ESCITALOPRAM 10 MG TABLET 20 MG PO (08:26)
[2023-12-11] MEDS: LOSARTAN POTASSIUM 50 MG TABLET 100 MG PO (08:26)
[2023-12-11] MEDS: SODIUM CHLORIDE 0.9 % (FLUSH) 10 ML SYRINGE 5 ML IVF (08:27)
--- NOTE | 2023-12-11 11:01 | PM.IMPN1 ---
Progress Note: A&P Assessment and plan (1) Bradycardia, sinus: Problem details: Patient presented with multiple presyncopal events and was found to be bradycardic in the 40s. Suspect secondary to metoprolol which he takes for BP, not for any known arrhythmia or ASCVD. HR improving, but still low. May take >24 hours to wash out - discontinue metoprolol - follow on telemetry Status: Acute (2) Near syncope: Problem details: - history of this with known bradycardia, exam otherwise reassuring with recent Neurological workup (including labs, imaging, LP) - follow telemetry, orthostatics Status: Acute (3) Hypertension: Problem details: BP elevated with holding metoprolol. -Start lisinopril and monitor renal function/electrolytes Status: Acute (4) 1st degree AV block: Status: Acute (5) EMIL on CPAP: Status: Acute Subjective Date Seen: 12/11/23 Interval history: Patient is seen and examined. He reports that he did have an episode this morning where he felt warm and pre-syncopal. Nursing reports that he did have HR drop into the 30s overnight, as well. Otherwise, he denies any chest pain or shortness of breath and feels well currently. Episodes have been coming at least 2-3 times a day and last about 1 minute. EXAM: General- Well appearing, resting in bed HEENT: NCAT Resp: Breathing is comfortable and unlabored, CTAB CV: RRR Neuro: Nonfocal, moving all extremities Exam Const: Vital Signs, click to edit/add: Vital Signs - 24 hr 12/10/23 13:52 12/10/23 14:00 12/10/23 14:01 Temperature Pulse Rate 52 L 53 L 48 L Pulse Rate [Left B lood Pressure Cuff ] Pulse Rate [orthos tatic lying Left P ulse Oximeter] Pulse Rate [orthos tatic sitting Puls e Oximeter] Pulse Rate [orthos tatic standing Pul se Oximeter] Respiratory Rate Blood Pressure 152/80 H Blood Pressure [Le ft Arm] Blood Pressure [or thostatic lying Ri ght Arm] Blood Pressure [or thostatic sitting Right Arm] Blood Pressure [or thostatic standing Right Arm] Pulse Oximetry 96 96 96 Oxygen Delivery Me thod 12/10/23 14:02 12/10/23 14:31 12/10/23 14:32 Temperature Pulse Rate 49 L 51 L 51 L Pulse Rate [Left B lood Pressure Cuff ] Pulse Rate [orthos tatic lying Left P ulse Oximeter] Pulse Rate [orthos tatic sitting Puls e Oximeter] Pulse Rate [orthos tatic standing Pul se Oximeter] Respiratory Rate Blood Pressure 147/80 H Blood Pressure [Le ft Arm] Blood Pressure [or thostatic lying Ri ght Arm] Blood Pressure [or thostatic sitting Right Arm] Blood Pressure [or thostatic standing Right Arm] Pulse Oximetry 96 95 95 Oxygen Delivery Me thod 12/10/23 15:00 12/10/23 15:00 12/10/23 15:02 Temperature Pulse Rate 55 L 55 L 54 L Pulse Rate [Left B lood Pressure Cuff ] Pulse Rate [orthos tatic lying Left P ulse Oximeter] Pulse Rate [orthos tatic sitting Puls e Oximeter] Pulse Rate [orthos tatic standing Pul se Oximeter] Respiratory Rate Blood Pressure 155/78 H Blood Pressure [Le ft Arm] Blood Pressure [or thostatic lying Ri ght Arm] Blood Pressure [or thostatic sitting Right Arm] Blood Pressure [or thostatic standing Right Arm] Pulse Oximetry 95 93 Oxygen Delivery Me thod 12/10/23 15:23 12/10/23 15:23 12/10/23 18:26 Temperature 97.6 F Pulse Rate Pulse Rate [Left B lood Pressure Cuff ] 53 L Pulse Rate [orthos tatic lying Left P ulse Oximeter] Pulse Rate [orthos tatic sitting Puls e Oximeter] 74 Pulse Rate [orthos tatic standing Pul se Oximeter] Respiratory Rate 20 20 Blood Pressure Blood Pressure [Le ft Arm] 165/83 H Blood Pressure [or thostatic lying Ri ght Arm] Blood Pressure [or thostatic sitting Right Arm] 155/81 H Blood Pressure [or thostatic standing Right Arm] Pulse Oximetry 98 98 Oxygen Delivery Me thod Room Air Room Air 12/10/23 18:30 12/10/23 18:30 12/10/23 19:00 Temperature Pulse Rate Pulse Rate [Left B lood Pressure Cuff ] 66 Pulse Rate [orthos tatic lying Left P ulse Oximeter] 73 Pulse Rate [orthos tatic sitting Puls e Oximeter] Pulse Rate [orthos tatic standing Pul se Oximeter] 66 Respiratory Rate 18 Blood Pressure Blood Pressure [Le ft Arm] 144/83 H Blood Pressure [or thostatic lying Ri ght Arm] 149/77 H Blood Pressure [or thostatic sitting Right Arm] Blood Pressure [or thostatic standing Right Arm] 144/83 H Pulse Oximetry 97 Oxygen Delivery Me thod Room Air 12/10/23 23:00 12/10/23 23:00 12/10/23 23:00 Temperature 98.5 F Pulse Rate Pulse Rate [Left B lood Pressure Cuff ] 55 L 55 L Pulse Rate [orthos tatic lying Left P ulse Oximeter] Pulse Rate [orthos tatic sitting Puls e Oximeter] Pulse Rate [orthos tatic standing Pul se Oximeter] Respiratory Rate 18 18 Blood Pressure Blood Pressure [Le ft Arm] 122/69 Blood Pressure [or thostatic lying Ri ght Arm] Blood Pressure [or thostatic sitting Right Arm] Blood Pressure [or thostatic standing Right Arm] Pulse Oximetry 93 93 Oxygen Delivery Me thod Room Air Room Air 12/11/23 00:15 12/11/23 03:00 12/11/23 07:00 Temperature 98.2 F Pulse Rate 58 L 51 L Pulse Rate [Left B lood Pressure Cuff ] 59 L Pulse Rate [orthos tatic lying Left P ulse Oximeter] Pulse Rate [orthos tatic sitting Puls e Oximeter] Pulse Rate [orthos tatic standing Pul se Oximeter] Respiratory Rate 18 Blood Pressure Blood Pressure [Le ft Arm] 121/81 Blood Pressure [or thostatic lying Ri ght Arm] Blood Pressure [or thostatic sitting Right Arm] Blood Pressure [or thostatic standing Right Arm] Pulse Oximetry 96 Oxygen Delivery Me thod Room Air 12/11/23 07:00 12/11/23 07:00 Temperature Pulse Rate Pulse Rate [Left B lood Pressure Cuff ] 63 Pulse Rate [orthos tatic lying Left P ulse Oximeter] Pulse Rate [orthos tatic sitting Puls e Oximeter] Pulse Rate [orthos tatic standing Pul se Oximeter] Respiratory Rate 20 20 Blood Pressure Blood Pressure [Le ft Arm] 161/90 H Blood Pressure [or thostatic lying Ri ght Arm] Blood Pressure [or thostatic sitting Right Arm] Blood Pressure [or thostatic standing Right Arm] Pulse Oximetry 98 98 Oxygen Delivery Me thod Room Air Room Air Labs Labs: Laboratory Results - last 24 hr 12/10/23 12/11/23 13:40 06:01 WBC 9.28 RBC 4.45 Hgb 13.8 Hct 41.5 MCV 93 MCH 31 MCHC 33 RDW Coeff of Mikalya 12.3 Plt Count 199 Neut % (Auto) 76.8 H Lymph % (Auto) 14.8 L [place] % (Auto) 7.7 Eos % (Auto) 0.3 Baso % (Auto) 0.3 Neut # (Auto) 7.10 H Lymph # (Auto) 1.40 [place] # (Auto) 0.70 Eos # (Auto) 0.03 Baso # (Auto) 0.03 Abs Immat Gran (auto) 0.01 Imm/Tot Granulo (auto) 0.1 Sodium 139 139 Potassium 3.9 4.2 Chloride 107 109 Carbon Dioxide 26 25 Anion Gap 6 L 5 L BUN 14 14 Creatinine 0.7 0.7 Estimated Creat Clear 75.30 75.30 Estimated GFR 100 100 Glucose 104 112 Calcium 9.1 8.8 Magnesium 2.1 Troponin I 0.01
--- NOTE | 2023-12-11 19:19 | PC.NURSE ---
End of shift [id number] - Pt alert, oriented, cooperative. Up independently in room. Denies pain, nausea, SOB, dizziness. Pt and spouse reported pt experienced episodes of pre-syncopal symptoms including warmth in chest, tingling in arms and legs, and feeling like he was going to pass out during shift. MD and centrifugal casting machine tender alerted, tele strip reviewed with no notable change in activity during reported episodes. Family at bedside, VSS with baseline bradycardia, afebrile. Tolerating RA, regular diet, fluids. Pt appears to be resting comfortably at end of shift.
[2023-12-11] MEDS: ATORVASTATIN CALCIUM 40 MG TABLET PO (22:10)
[2023-12-11] MEDS: DONEPEZIL 10 MG TABLET PO (22:10)
[2023-12-12 00:19] VITALS: PULSE 52
--- NOTE | 2023-12-12 01:12 | PC.NURSE ---
While doing orthostatic blood pressures pt was sitting on edge of bed and reported a warm sensation throughout his body. Pt laid back down and reported sensation was gone. At this time Pt's HR was 41bpm and O2 saturations were bouncing from 86%-97% on room air with good wave form. Pt denies SOB or chest pain. HR went back up to 61bpm and O2 sats 94%-97%. updated.
[2023-12-12 04:05] VITALS: BP 161/88; PULSE 64; RESP 16; O2SAT 97
--- NOTE | 2023-12-12 06:12 | PC.NURSE ---
End of shift [id number]: A&O pleasant and cooperative. Pt reports multiple ?episodes? overnight where the pt feels a warm sensation throughout his body and needs to lay down. Pt reports recovering in less than a minute. HR 40s-70s overnight.
[2023-12-12 06:32] LABS: Chloride* 108 mmol/L (96-114); Potassium* 3.8 mmol/L (3.6-5.1); Sodium* 138 mmol/L (135-149)
[2023-12-12 06:35] LABS: Anion Gap 3 mEq/L (7-15); Blood Urea Nitrogen* 18 mg/dL (7-30); Carbon Dioxide* 27 mmol/L (20-32); Creatinine* 0.7 mg/dL (0.5-1.5); Estimated Glomerular Filt Rate 100 ml/min; Glucose* 114 mg/dL (60-115)
[2023-12-12 07:00] VITALS: BP 166/89; PULSE 68; PULSE 80; RESP 18; TEMP 36.5; O2SAT 96
[2023-12-12 07:45] VITALS: BP 136/79; BP 164/89; BP 166/89; PULSE 62; PULSE 63; PULSE 65
--- NOTE | 2023-12-12 09:19 | P.DS_ITS ---
DS: Providers Provider Date Seen: 12/12/23 Date of admission: 12/10/23 15:16 Primary care physician: Not a Local Provider Admitting Clinician: María Chaney MD Attending Physician on discharge: María Chaney MD Date of Discharge: 12/12/23 DS: Diagnosis Discharge Diagnosis (1) Near syncope: Status: Acute Problem details: Initially thought to be due to bradycardia with metoprolol use, but symptoms continued even when HR improved off of metoprolol. Cardiac work up here reassuring so far with no arrhythmias beyond bradycardia which is resolved. Formal echo read is pending. Recommend f/u with [facility] (2) Bradycardia, sinus: Status: Acute Problem details: Patient presented with multiple presyncopal events and was found to be bradycardic in the 40s. Suspected secondary to metoprolol which he takes for BP, not for any known arrhythmia or ASCVD. HR improved with discontinuation of metoprolol. Patient had recent ambulatory monitoring for 2 weeks, so will not repeat. - discontinued metoprolol permanently (3) Dementia: Status: Acute Problem details: New diagnosis. Following with neurology at [facility] and will be starting a clinical trial with infusion therapy in the near future. (4) Hypertension: Status: Acute Problem details: BP mildly elevated with holding metoprolol. Although he is not currently orthostatic, I am concerned about underlying autonomic dysfunction and recommend against tight blood pressure control. -Continue losartan only (5) 1st degree AV block: Status: Acute Problem details: Noted (6) EMIL on CPAP: Status: Acute Problem details: Noted DS: Summary Hospital Course Hospital Course: Patient presented with multiple presyncopal hot flash episodes. Given he was bradycardic, it was thought the etiology could be iatrogenic with his metoprolol. Metoprolol was discontinued, but patient continued to have episodes even when HR was improved. They last for approx 1 min and then spontaneously resolve. They happen at any time, often while laying down and resting. He was monitored on telemetry and there have not been any concerning arrhythmia alerts. He is not orthostatic. Patient and his report a recent 2-week ambulatory phototypesetting equipment monitor did not show any arrhythmia, either. He had an echocardiogram here, official read is pending but preliminary read is reassuring with no decrease in LV or RV function, but did note ascending aortic dilation at 4.6 cm which should be monitored if confirmed on official read. At this point, I question if patient may be experiencing some autonomic dysfunction related to his new dementia diagnosis. I recommended that he follow up with neurology at [facility] where is established for further discussion of his symptoms. In the meantime, he will need to be careful and sit or lay down when these episodes occur. I recommended against driving until further investigation and management is complete. Time Spent with Patient Time attestation: Total time spent providing and/or coordinating discharge services: Exam Narrative: Exam Narrative: Patient was seen and examined on day of discharge. He is comfortable, alert and oriented. Heart is RRR at 64bpm. Breathing is comfortable and unlabored. Grossly intact neurologically with no lateralizing deficits, but forgetful. Const: Vital Signs, click to edit/add: Vital Signs - 24 hr 12/11/23 11:00 12/11/23 15:00 12/11/23 15:00 Temperature 98.0 F Pulse Rate Pulse Rate [Left B lood Pressure Cuff ] 62 56 L Pulse Rate [Pulse Oximeter] Pulse Rate [orthos tatic lying Left P ulse Oximeter] Pulse Rate [orthos tatic sitting Puls e Oximeter] Pulse Rate [orthos tatic standing Pul se Oximeter] Respiratory Rate 20 16 16 Blood Pressure [Le ft Arm] 129/69 137/79 Blood Pressure [or thostatic lying Ri ght Arm] Blood Pressure [or thostatic sitting Right Arm] Blood Pressure [or thostatic standing Right Arm] Pulse Oximetry 94 94 94 Oxygen Delivery Me thod Room Air Room Air Room Air 12/11/23 15:00 12/11/23 15:55 12/11/23 19:00 Temperature 98.0 F Pulse Rate 61 Pulse Rate [Left B lood Pressure Cuff ] 56 L 66 Pulse Rate [Pulse Oximeter] Pulse Rate [orthos tatic lying Left P ulse Oximeter] Pulse Rate [orthos tatic sitting Puls e Oximeter] Pulse Rate [orthos tatic standing Pul se Oximeter] Respiratory Rate 20 Blood Pressure [Le ft Arm] 152/91 H Blood Pressure [or thostatic lying Ri ght Arm] Blood Pressure [or thostatic sitting Right Arm] Blood Pressure [or thostatic standing Right Arm] Pulse Oximetry 95 Oxygen Delivery Me thod Room Air 12/11/23 23:00 12/11/23 23:00 12/11/23 23:00 Temperature 98.0 F Pulse Rate Pulse Rate [Left B lood Pressure Cuff ] Pulse Rate [Pulse Oximeter] 57 L Pulse Rate [orthos tatic lying Left P ulse Oximeter] Pulse Rate [orthos tatic sitting Puls e Oximeter] Pulse Rate [orthos tatic standing Pul se Oximeter] Respiratory Rate 16 16 Blood Pressure [Le ft Arm] 154/85 H Blood Pressure [or thostatic lying Ri ght Arm] Blood Pressure [or thostatic sitting Right Arm] Blood Pressure [or thostatic standing Right Arm] Pulse Oximetry 95 95 Oxygen Delivery Me thod Room Air Room Air 12/11/23 23:30 12/12/23 00:19 12/12/23 04:05 Temperature Pulse Rate 52 L Pulse Rate [Left B lood Pressure Cuff ] Pulse Rate [Pulse Oximeter] 64 Pulse Rate [orthos tatic lying Left P ulse Oximeter] 57 L Pulse Rate [orthos tatic sitting Puls e Oximeter] 63 Pulse Rate [orthos tatic standing Pul se Oximeter] 64 Respiratory Rate 16 Blood Pressure [Le ft Arm] 161/88 H Blood Pressure [or thostatic lying Ri ght Arm] 154/85 H Blood Pressure [or thostatic sitting Right Arm] 156/69 H Blood Pressure [or thostatic standing Right Arm] 157/82 H Pulse Oximetry 97 Oxygen Delivery Me thod Room Air DS: Data Data Completed and Pending Labs on day of discharge: Labs from last 24 hours 12/12/23 06:05 Sodium 138 Potassium 3.8 Chloride 108 Carbon Dioxide 27 Anion Gap 3 L BUN 18 Creatinine 0.7 Estimated Creat Clear 75.30 Estimated GFR 100 Glucose 114 Calcium 9.0 Discharge Plan Discharge Disposition: Home, Self-Care Date of Admission: 12/10/23 15:16 Attending Provider on Discharge: María Chaney Primary Care Provider: Provider,Not a Local Condition: Stable Anticipated Discharge Date/Time: 12/12/23 09:15 Discharge Medications: Continued atorvastatin 40 mg tablet 40 mg PO HS losartan [Cozaar] 100 mg tablet 100 mg PO DAILY donepezil [Aricept] 10 mg tablet 10 mg PO HS escitalopram oxalate 20 mg tablet 20 mg PO DAILY Discontinued metoprolol succinate 25 mg tablet extended release 24 hr 12.5 mg PO HS Discharge Orders: Discharge Order (Routine); Ordered 12/12/23 Ordered By: María Chaney Patient Education: Near Syncope (DC) Activity Level: Other Activity Detail: No driving until near syncope is better understood/managed. Recommend a shower chair in case you need to sit down urgently Discharge Diet: Regular Follow Up Appointments: Provider,Not a Local [Primary Care Provider] - Forms: [employer] Info Instructions Discharge Comments: Patient will need to follow up with [facility] as there is concern for autonomic dysfunction, possibly related to dementia diagnosis?
[2023-12-12] MEDS: ESCITALOPRAM 10 MG TABLET 20 MG PO (10:01)
[2023-12-12] MEDS: LOSARTAN POTASSIUM 50 MG TABLET 100 MG PO (10:01)
--- NOTE | 2023-12-12 12:38 | PC.NURSE ---
shift note: 10 mins after orthostatic BP's done pt laying in bed. pt expressed he felt all over warmth like someone put warm water in my veins. pt denies dizziness, nausea.
--- NOTE | 2023-12-12 13:46 | PC.NURSE ---
shift note: vss stable. some changes noted on vss during orthostatics. pt denies dizziness,nausea. Dr. Morgan notified of pt's orthostatics. IV dc'd intact. Reviewed dc instructions with pt and his spouse. copies of dc instructions and belongings sent with pt at dc.
== END 2023-12-12 13:00 | disposition home or self-care (01) | DRG 312 ==
LOC: ED 14:40 → MEDSURG 15:16
PROVIDERS: Family Medicine; Admitting Provider Family Medicine; Emergency Provider Emergency Medicine; Visit Provider Family Medicine
DX: R55 Syncope and collapse (principal); R00.1 Bradycardia, unspecified; I44.0 Atrioventricular block, first degree; G47.33 Obstructive sleep apnea (adult) (pediatric); Z99.89 Dependence on other enabling machines and devices; I10 Essential (primary) hypertension; F03.90 Unspecified dementia, unspecified severity, without behavioral disturbance, psychotic disturbance, mood disturbance, and anxiety; T44.7X5A Adverse effect of beta-adrenoreceptor antagonists, initial encounter
CPT/HCPCS: 36415; 80048; 83735; 84484; 85025; 93005; 99284; 99285; A9270